=== PATIENT | female | born 1950 | race Caucasian/White ===

== ENCOUNTER 2023-03-04 08:31 | Outpatient (AMB) | payer OTHER, SELFPAY ==
--- NOTE | 2023-03-04 09:02 | MHC.OFFWIV ---
Intake Vital Signs 03/04/23 09:05 Height 5 ft 5 in Weight 127 lb BMI 21.1 BP 122/72 Blood Pressure Location Lt brachial Position Sitting Pulse 76 Pulse Source Pulse Oximeter Temp 101.2 F H Temp Source Temporal Artery Scan Pulse Oximetry (%) 97 Intake Visit Reasons: [employer] COVID + 03/04/23 Intake Note: pt is here for c/o chest congestion, fatigue, fever, at home covid test positive this moring Patient Tobacco Use Status: Never used Tobacco Allergies gluten [GLUTEN] Allergy (Unknown, Verified 03/04/23 09:07) UNKNOWN Do you need a note to return to daycare/school/sports/work: Yes HPI HPI Comments History of Present Illness Details This is a 72-year-old female with a past medical history of asthma and arthritis presenting for evaluation after testing positive for COVID-19 this morning. 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 Patient reports fevers without chills and is not taking any medication for treatment of her symptoms this morning. [facility] Social History Patient Tobacco Use Status: Never used Tobacco Review of Systems Const All systems reviewed & are unremarkable except as noted in HPI and below Reports body aches, Denies chills, Denies excessive sweating, Reports fatigue, Reports fever(s) and Reports malaise Eyes Reports no additional complaints ENT Reports no additional complaints, Denies otalgia and Denies sore throat Card Reports no additional complaints, Denies palpitations and Reports dyspnea Resp Reports cough and Reports dyspnea Endo Denies excessive sweating, Reports fatigue and Denies palpitations Physical Exam Vital Signs: Last Vital Signs Temp 101.2 F H 03/04/23 09:05 Pulse 76 03/04/23 09:05 BP 122/72 03/04/23 09:05 Pulse Ox 97 03/04/23 09:05 BMI result Body Mass Index 21.1 Const Other: Patient is febrile and not hypoxic. General: cooperative, healthy appearing, comfortable, no acute distress, well developed, alert and awake; No ill appearing Nutritional Appearance: average body habitus Orientation/consciousness: patient oriented x3 Limitations: no limitations HEENT Head: Yes normal to inspection Ears: hearing grossly normal bilaterally, TM's normal bilaterally and Abnormal EAC present General nose exam: Normal external nose present Face and sinus: Yes normal facial exam and Yes sinuses nontender Mouth: Normal oral and palatal mucosa present and moist mucous membranes Throat: Yes posterior oropharynx normal Neck Lymphatic: no lymphadenopathy noted Resp Effort & Inspection: normal respiratory effort, able to speak in complete sentences, no audible wheezes, no cough and no respiratory distress Auscultation: clear to auscultation bilaterally Cardio Rate: regular rate Rhythm: regular rhythm Neuro General: patient oriented x3 Psych Appearance: grossly normal Mental Status: mental status grossly normal Insight: Good insight present (Psych) Judgement: Good judgement present (Psych) Assessment & Plan Assessment & Plan (1) COVID: Comment: I have discussed both the risks and benefits of utilizing Paxlovid for management of COVID-19 and patient will be discharged with a prescription of Paxlovid. Code(s): U07.1 - COVID-19 Plan: Follow-up with PCP within 5 days if your symptoms are not improving and use Tylenol or Ibuprofen as needed for fevers and myalgias. Medications: New nirmatrelvir-ritonavir 300 mg (150 mg x 2)-100 mg (Paxlovid) take TWO 150 mg tablets of nirmatrelvir with ONE 100 mg tablet of ritonavir twice daily for 5 days orally per package directions; 30 ea 0RF Coding Level of Care Code Est Pt Level 3 (63265) Diagnoses COVID U07.1 Time Spent (min) 20
[2023-03-04 09:05] VITALS: BP 122/72; PULSE 76; TEMP 38.4; O2SAT 97; BMI 21.1
== END 2023-03-04 09:44 | disposition home or self-care (01) ==
PROVIDERS: PCP Internal Medicine; Visit Provider Physician Assistant
DX: U07.1 COVID-19 (principal)
CPT/HCPCS: 99213

== ENCOUNTER 2023-06-12 08:39 | Outpatient (AMB) | payer OTHER, SELFPAY ==
[2023-06-12 09:02] VITALS: BP 110/72; PULSE 65; TEMP 36.6; O2SAT 97; BMI 21.0
--- NOTE | 2023-06-12 09:02 | AM.OFFWIN_ITS ---
Intake Vital Signs 06/12/23 09:02 Height 5 ft 5 in Weight 126 lb BMI 21.0 BP 110/72 Blood Pressure Location Rt brachial Position Sitting Pulse 65 Pulse Source Pulse Oximeter Temp 97.9 F Temp Source Temporal Artery Scan Pulse Oximetry (%) 97 Oxygen Delivery Method Room Air Intake Visit Reasons: EP Vertigo Intake Note: pt is here today for vertigo started friday Patient Tobacco Use Status: Never used Tobacco Allergies gluten [GLUTEN] Allergy (Unknown, Verified 06/12/23 09:02) UNKNOWN Medication List - Last Reconciled 06/12/23 by Taylor Castaneda NP estradiol 1 patch transdermal QWEEK montelukast 10 mg PO DAILY oxybutynin chloride ER 10 mg PO DAILY valacyclovir 500 mg PO BID Do you need a note to return to daycare/school/sports/work: Yes HPI HPI Comments History of Present Illness Details 72 y/o female patient who presents to [facility] in clinic today with c/o Vertigo since Friday. Pt admits to not hydrating well. Symptoms associated with vomiting and nausea. Denies fevers, chills, or diarrhea. 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 [facility] Social History Patient Tobacco Use Status: Never used Tobacco Review of Systems Const All systems reviewed & are unremarkable except as noted in HPI and below Physical Exam Vital Signs: Last Vital Signs Temp 97.9 F 06/12/23 09:02 Pulse 65 06/12/23 09:02 BP 110/72 06/12/23 09:02 Pulse Ox 97 06/12/23 09:02 Oxygen Delivery Method Room Air 06/12/23 09:02 BMI result Body Mass Index 21.0 Const General: comfortable and no acute distress HEENT Head: Yes normocephalic Ears: external ears normal and TM's normal bilaterally General nose exam: Normal nares present and No nasal discharge present Face and sinus: Yes sinuses nontender Mouth: oropharynx normal and moist mucous membranes Throat: Yes uvula midline Resp Effort & Inspection: normal respiratory effort Auscultation: clear to auscultation bilaterally Cardio Rate: regular rate Rhythm: regular rhythm Assessment & Plan Assessment & Plan (1) Vertigo: Code(s): R42 - Dizziness and giddiness Plan: - Meclizine - Recom f/u with PCP for ENT referral (2) Nausea and vomiting: Code(s): R11.2 - Nausea with vomiting, unspecified Qualifiers: Vomiting type: unspecified Qualified Code(s): R11.2 - Nausea with vomiting, unspecified Plan: - Meclizine - Recom f/u with PCP for ENT referral Orders: Orders SARS-CoV2/FLU/RSV Today R11.2 - Nausea with vomiting, unspecified Medications: New ondansetron 8 mg PO Q8H 30 tabs 0RF R11.2 - Nausea with vomiting, unspecified meclizine 50 mg PO BID 30 tabs 0RF R42 - Dizziness and giddiness Coding Level of Care Code Est Pt Level 3 (68646) Diagnoses Vertigo R42 Nausea and vomiting, unspecified vomiting type R11.2 Vomiting type: unspecified Time Spent (min) 20
== END 2023-06-12 10:01 | disposition home or self-care (01) ==
PROVIDERS: PCP Internal Medicine; Visit Provider Nurse Practitioner Family
DX: R42 Dizziness and giddiness (principal); R11.2 Nausea with vomiting, unspecified
CPT/HCPCS: 99213

== ENCOUNTER 2023-06-12 11:47 | Outpatient (REF) | payer OTHER, SELFPAY ==
[2023-06-12 13:03] LABS: Influenza A PCR NEGATIVE (Negative); Influenza B PCR NEGATIVE (Negative); Resp Syncy Virus RNA Qual PCR NEGATIVE (Negative); SARS COV2 PCR INHOUSE NEGATIVE (Negative)
== END 2023-06-12 11:48 | disposition home or self-care (01) ==
LOC: HO.LNP 11:47
PROVIDERS: Visit Provider Nurse Practitioner Family
DX: Z11.52 Encounter for screening for COVID-19 (principal); Z20.822 Contact with and (suspected) exposure to COVID-19; R11.2 Nausea with vomiting, unspecified
CPT/HCPCS: 0241U

== ENCOUNTER 2023-08-29 07:00 | Outpatient (RCR) | payer OTHER, SELFPAY ==
[2023-08-19 07:06] VITALS: BP 127/41; PULSE 78
== END 2023-10-06 08:28 | disposition home or self-care (01) ==
LOC: HO.PT 07:00
PROVIDERS: PCP Internal Medicine; Visit Provider Internal Medicine
DX: H81.10 Benign paroxysmal vertigo, unspecified ear (principal)
CPT/HCPCS: 95992; 97161; 97535

== ENCOUNTER 2023-09-17 07:32 | Outpatient (AMB) | payer OTHER, SELFPAY ==
[2023-09-17 07:49] VITALS: BP 100/62; PULSE 53; O2SAT 97; BMI 20.6
--- NOTE | 2023-09-17 07:49 | MHC.PC.OV ---
Vital Signs 09/17/23 07:49 Height 5 ft 5 in Weight 124 lb BMI 20.6 BP 100/62 Blood Pressure Location Lt brachial Position Sitting Pulse 53 Pulse Source Pulse Oximeter Pulse Oximetry (%) 97 Oxygen Delivery Method Room Air Intake Visit Reasons: New patient-req physical Intake Note: Pt is here today as a New patient to est care/ PE Allergies gluten [GLUTEN] Allergy (Unknown, Verified 09/17/23 07:50) UNKNOWN Medication List - Last Reconciled 09/17/23 by Harini Lam MD acetaminophen (Tylenol Extra Strength) 1,000 mg PO Q6H PRN albuterol sulfate 90 mcg/actuation 2 puffs inhalation Q6H PRN ascorbic acid (vitamin C) 500 mg PO DAILY calcium carb,[id number] 315-250-200 mg-unit-mg tabs PO cholecalciferol (vitamin D3) 125 mcg PO DAILY diclofenac sodium 1% 2 grams topical QID dorzolamide 2% drps ophthalmic (eye) estradiol 1 patch transdermal QWEEK fexofenadine (Brianna Allergy) 180 mg PO DAILY folic acid 0.4 mg PO DAILY lactobacillus combination no.9 (Adult 50 Plus Probiotic) 4,000 mmu cells PO DAILY latanoprost 0.005% drps ophthalmic (eye) lysine 1,000 mg PO DAILY mecobalamin (vitamin B12) mcg PO montelukast 10 mg PO DAILY multivitamin 1 tab PO DAILY ondansetron 8 mg PO Q8H oxybutynin chloride ER 10 mg PO DAILY timolol maleate 0.5% drps ophthalmic (eye) valacyclovir 500 mg PO BID vit C-E-zinc [id number]-mjhp-yle-[id number] 250 mg-200 unit -12.5 mg-1 mg (ICaps AREDS2) caps PO Tobacco use date assessed: 09/17/23 Fall risk assessment: No Falls in past year Last assessed Fall Risk: 09/17/23 Dental Screening Dental Screen Date: 09/17/23 Did you have a dental visit in the last 12 months?: Yes Did you have a dental problem in the last 6 months where you did not have access to dental care?: No Was dental information given to patient?: Patient has dentist HPI New patient-req physical HPI Details Pt presents for [employer] PE. 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 How often do you have a drink containing alcohol?: 2-4 times a month 2. How many drinks containing alcohol do you have on a typical day when you are drinking?: 1 or 2 3. How often do you have six or more drinks on one occasion?: Never Total Score: 2 KYLEE-7 AMB Questionnaire KYLEE-7 Feeling nervous, anxious, or on edge: 1 = Several days Not being able to stop or control worryin = Several days Worrying too much about different things: 1 = Several days Trouble relaxin = Not at all Being so restless that it is hard to sit still: 1 = Several days Becoming easily annoyed or irritable: 1 = Several days Feeling afraid as if something awful might happen: 0 = Not at all Total KYLEE-7 score (0-4 normal; 5-9 mild; 10-14 moderate; 15-21 severe): 5 Source: Developed by Drs. Felipe Marques, Maria Isabel Mcclelland, Gil Reyes and colleagues, with an educational daniela from [employer]. Review of Systems Const All systems reviewed & are unremarkable except as noted in HPI and below Reports no additional complaints Eyes Reports no additional complaints ENT Reports no additional complaints Card Reports no additional complaints Resp Reports no additional complaints GI Reports no additional complaints Reports no additional complaints Physical exam (Primary Care) Vital Signs: Last Vital Signs Pulse 53 09/17/23 07:49 BP 100/62 09/17/23 07:49 Pulse Ox 97 09/17/23 07:49 Oxygen Delivery Method Room Air 09/17/23 07:49 BMI result Body Mass Index 20.6 Tobacco/Smoking Status: Tobacco use Status Tobacco use date assessed 09/17/23 09/17/23 08:01 Patient Tobacco Use Status Never used Tobacco 09/17/23 08:27 e-Cigarette/Vaping Use Never Used 09/17/23 08:27 Const General: no acute distress HENMT Head: Yes normal to inspection Ears: hearing grossly normal bilaterally General nose exam: Normal external nose present Face and sinus: Yes normal facial exam Mouth: Normal oral and palatal mucosa present Throat: Yes posterior oropharynx normal Eyes General: appearance normal, both eyes and all related structures Neck Neck: Yes no lymphadenopathy and Yes supple Resp Effort & Inspection: normal respiratory effort Auscultation: clear to auscultation bilaterally Cardio Rhythm: regular rhythm Heart sounds: S1 normal heart sound present and S2 normal heart sound present GI Inspection: Yes normal to inspection Palpation (GI): Soft to palpation Percussion: Yes normal to percussion Auscultation: normal bowel sounds Assessment and Plan Assessment & Plan (1) Glaucoma: Comment: Dr. Fawn Talbert Code(s): H40.9 - Unspecified glaucoma (2) Macular degeneration: Code(s): H35.30 - Unspecified macular degeneration (3) Annual physical exam: Code(s): Z00.00 - Encounter for general adult medical examination without abnormal findings Plan: Well-balanced diet regular physical activity discussed with the patient she will return for fasting blood work. Patient will obtain her records including report on DEXA and colonoscopy (4) Hx of colonoscopy: Comment: 2022 07 [facility] GI Code(s): Z98.890 - Other specified postprocedural states (5) Cystocele with prolapse: Comment: s/p 2 surgeries, follow-up with urogynecology Code(s): N81.4 - Uterovaginal prolapse, unspecified (6) Osteopenia: Comment: f/u Dr. Fitch, on estradiol patch Code(s): M85.80 - Other specified disorders of bone density and structure, unspecified site (7) Vitamin D deficiency disease: Code(s): E55.9 - Vitamin D deficiency, unspecified Orders: Orders Vitamin D 25-OH Total Today E55.9 - Vitamin D deficiency, unspecified, Z00.00 - Encounter for general adult medical examination without abnormal findings Comprehensive [place]. Panel Fast Today E55.9 - Vitamin D deficiency, unspecified, Z00.00 - Encounter for general adult medical examination without abnormal findings Complete Blood Count Auto Diff Today E55.9 - Vitamin D deficiency, unspecified, Z00.00 - Encounter for general adult medical examination without abnormal findings Lipid Panel Today E55.9 - Vitamin D deficiency, unspecified, Z00.00 - Encounter for general adult medical examination without abnormal findings TSH reflex Free T4 Today E55.9 - Vitamin D deficiency, unspecified, Z00.00 - Encounter for general adult medical examination without abnormal findings Medications: New montelukast 10 mg PO DAILY 90 tabs 3RF oxybutynin chloride ER 10 mg PO DAILY 90 tabs 3RF albuterol sulfate 90 mcg/actuation 2 puffs inhalation Q6H PRN 6.7 grams 5RF bronchospasm estradiol 1 patch transdermal QWEEK 12 ea 3RF valacyclovir 500 mg PO BID 180 tabs 3RF Coding Level of Care Code New Pt Prev Care >65yr (34400) Diagnoses Glaucoma H40.9 Macular degeneration H35.30 Annual physical exam Z00.00 Hx of colonoscopy Z98.890 Cystocele with prolapse N81.4 Osteopenia M85.80 Vitamin D deficiency disease E55.9
== END 2023-09-17 08:38 | disposition home or self-care (01) ==
PROVIDERS: PCP Internal Medicine; Visit Provider Internal Medicine
DX: H40.9 Unspecified glaucoma (principal); H35.30 Unspecified macular degeneration; Z00.00 Encounter for general adult medical examination without abnormal findings; Z98.890 Other specified postprocedural states; N81.4 Uterovaginal prolapse, unspecified; M85.80 Other specified disorders of bone density and structure, unspecified site; E55.9 Vitamin D deficiency, unspecified
CPT/HCPCS: 99387

== ENCOUNTER 2023-11-06 06:34 | Outpatient (REF) | payer OTHER, SELFPAY ==
[2023-11-06 10:28] LABS: MANUAL DIFF FLAG NO
[2023-11-06 10:36] LABS: Basophils Percent Auto 0.6 % (0-2); Eosinophils Absolute Auto 0.2 X10*3/uL (0.0-0.4); Eosinophils Percent Auto 3.1 % (0-4); Hematocrit 40.4 % (37.0-47.0); Hemoglobin 13.2 g/dl (12.0-16.0); Imm Gran Abs Auto 0.02 X10*3/uL (0.00-0.03); Imm Gran Pct Auto 0.3 % (0.0-0.4); Lymphocytes Absolute Auto 1.3 X10*3/uL (1.2-4.9); Lymphocytes Percent Auto 20.8 % (20-40); Mean Corpuscular HGB Conc 32.7 g/dl (31.0-35.0); Mean Corpuscular Hemoglobin 32.7 pg (27.0-33.0); Mean Platelet Volume 10.2 fL (9.4-12.3); Monocytes Absolute Auto 0.3 X10*3/uL (0.1-1.2); Neutrophils Absolute Auto 4.5 x10*3/uL (2.0-8.3); Neutrophils Percent Auto 70.2 % (45-73); Platelet Count 306 X10*3/uL (160-400); Red Blood Count 4.04 X10*6/uL (4.20-5.50); Red Cell Distribution Width 12.7 % (11.0-16.0); White Blood Count 6.4 X10*3/uL (4.8-10.8)
[2023-11-06 10:48] LABS: Alanine Aminotransferase 17 U/L (0-31); Albumin Level 3.8 g/dL (3.5-5.0); Alkaline Phosphatase 55 U/L (39-117); Anion Gap 8 (12-20); Aspartate Amino Transferase 20 U/L (5-31); Bilirubin Total 0.4 mg/dL (0.0-1.0); Blood Urea Nitrogen 11 mg/dL (9-16); Calcium 8.5 mg/dL (8.4-10.2); Carbon Dioxide 28 mmol/L (22-29); Chloride 110 mmol/L (96-108); Cholesterol 175 mg/dL (<200); Estimated Glomerular Filt Rate > 60; Glucose Fasting 81 mg/dL (60-99); HDL Cholesterol 51 mg/dL (>40); LDL Cholesterol Calculated 112 mg/dL (<100); Potassium 4.3 mmol/L (3.3-5.1); Sodium 142 mmol/L (135-145); Total Protein 6.4 g/dL (6.5-8.0); Triglycerides 64 mg/dL (<150)
[2023-11-06 11:06] LABS: TSH reflex Free T4 1.11 uIU/mL (0.32-4.0); Vitamin D 25-OH Total 86.4 ng/mL (>30)
== END 2023-11-06 06:35 | disposition home or self-care (01) ==
LOC: HO.HMGCLDS 06:34
PROVIDERS: PCP Internal Medicine; Visit Provider Internal Medicine
DX: Z00.00 Encounter for general adult medical examination without abnormal findings (principal); E55.9 Vitamin D deficiency, unspecified
CPT/HCPCS: 36415; 80053; 80061; 82306; 84443; 85025

== ENCOUNTER 2024-01-06 08:39 | Outpatient (REF) | payer OTHER, SELFPAY ==
--- NOTE | ~2024-01-06 | MM_ITS ---
EXAMINATION: MM SCREENING DIGITAL BREAST TOMOSYNTHESIS, BILATERAL CLINICAL INFORMATION: Screening. Asymptomatic. COMPARISON: Mammography: This study is compared with prior exams dating back to 2020. TECHNIQUE: Digital breast tomosynthesis is performed in both the craniocaudal and mediolateral oblique views along with computer-aided detection (CAD). Synthesized 2D images are generated from the tomosynthesis. FINDINGS: There are scattered areas of fibroglandular density (ACR BI-RADS breast composition Category b). There are no significant masses, abnormal calcifications, or other abnormalities. There is a benign mass in the upper inner quadrant of the right breast loss prevention representative of an involuting fibroadenoma. MM/MM tomosynthesis screening BI IMPRESSION: No mammographic evidence of malignancy. ASSESSMENT: BI-RADS BI-RADS 2 - Benign Findings RECOMMENDATION: Routine annual mammography screening. 1 year F/U This examination should not preclude the clinical evaluation of a suspicious palpable abnormality. This patient's information was entered into a reminder system with a target due date for their next mammogram. Electronically signed by: Mikala Rosado MD 02/03/2024 12:02 PM EDT
== END 2024-01-06 08:40 | disposition home or self-care (01) ==
LOC: HO.MAMMO 08:39
PROVIDERS: PCP Internal Medicine; Visit Provider Internal Medicine
DX: Z12.31 Encounter for screening mammogram for malignant neoplasm of breast (principal)
CPT/HCPCS: 77063; 77067

== ENCOUNTER → 2024-01-06 09:00 | Outpatient (BNV) | payer OTHER, SELFPAY | PROVIDERS: PCP Internal Medicine; Visit Provider Radiology Diagnostic Radiology | DX: Z12.31 Encounter for screening mammogram for malignant neoplasm of breast (principal) | CPT/HCPCS: 77063; 77067 ==

== ENCOUNTER 2024-04-02 08:52 | Outpatient (AMB) | payer OTHER, SELFPAY ==
--- NOTE | 2024-04-02 09:00 | A.OFFPC_ITS ---
Vital Signs 04/02/24 09:07 Height 5 ft 5 in Weight 120 lb BMI 20.0 BP 102/66 Blood Pressure Location Lt brachial Position Sitting Pulse 53 Pulse Source Pulse Oximeter Pulse Oximetry (%) 98 Oxygen Delivery Method Room Air Intake Visit Reasons: 6M F/U Intake Note: Pt is here today for 6 months follow up visit. Allergies gluten [GLUTEN] Allergy (Unknown, Verified 04/02/24 09:09) UNKNOWN Tobacco use date assessed: 04/02/24 Fall risk assessment: No Falls in past year Last assessed Fall Risk: 04/02/24 Dental Screening Dental Screen Date: 09/17/23 HPI 5M F/U HPI Details Pt presents for f/u. 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 Patient is established with rn ortho for osteopenia and has been using estradiol patch. 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 1. Little interest or pleasure in doing things: not at all 2. Feeling down, depressed, or hopeless: not at all 3. Trouble falling or staying asleep, or sleeping too much: not at all 4. Feeling tired or having little energy: not at all 5. Poor appetite or overeating: not at all 6. Feeling bad about yourself - or that you are a failure or have let yourself or your family down: not at all 7. Trouble concentrating on things, such as reading the newspaper or watching television: not at all 8. Moving or speaking so slowly that other people could have noticed. Or the opposite - being so fidgety or restless that you have been moving around a lot more than usual: not at all 9. Thoughts that you would be better off or of hurting yourself in some way: not at all Total score: 0 Depression Screening Interpretation: Negative Depression Screening Done: Yes 46140 - PHQ-9 Billing: Yes Source: Developed by Drs. Felipe Marques, Maria Isabel Mcclelland, Gil Reyes and colleagues, with an educational daniela from [employer]. Thrive Questionnaire Date Thrive assessed: 03/27/24 I am a: Patient What is your living situation today?: I have a steady place to live Within the past 12 months, did the food you bought not last and you didn't have the money to get more?: Often true Within the past 12 months, did you worry whether your food would run out before you got money to buy more?: Never true Do you have trouble paying for medicines?: No Do you have trouble getting transportation to medical appointments?: No Do you have trouble paying your heating and electricity bill?: No Do you have trouble taking care of your child, family member or friend?: No Do you have trouble with day-to-day activities such as bathing, preparing meals, shopping, managing finances, etc.?: No Are you currently unemployed and looking for a job?: No Are you interested in more education?: No Please select the resources that you would like help with: None Currently or been in a relationship where the following occur: No concerns reported THRIVE Score: 1 AUDIT C Alcohol Use Questionnaire (AUDIT-C) 1. How often do you have a drink containing alcohol?: 2-3 times a week 2. How many drinks containing alcohol do you have on a typical day when you are drinking?: 1 or 2 3. How often do you have six or more drinks on one occasion?: Never Total Score: 3 KYLEE-7 AMB Questionnaire KYLEE-7 Feeling nervous, anxious, or on edge: 0 = Not at all Not being able to stop or control worryin = Not at all Worrying too much about different things: 0 = Not at all Trouble relaxin = Not at all Being so restless that it is hard to sit still: 0 = Not at all Becoming easily annoyed or irritable: 0 = Not at all Feeling afraid as if something awful might happen: 0 = Not at all Total KYLEE-7 score (0-4 normal; 5-9 mild; 10-14 moderate; 15-21 severe): 0 Source: Developed by Drs. Felipe Marques, Maria Isabel Mcclelland, Gil Reyes and colleagues, with an educational daniela from [employer]. Review of Systems Const All systems reviewed & are unremarkable except as noted in HPI and below Eyes Reports no additional complaints ENT Reports no additional complaints Card Reports no additional complaints Resp Reports no additional complaints GI Reports no additional complaints Reports no additional complaints Physical exam (Primary Care) Vital Signs: Last Vital Signs Pulse 53 04/02/24 09:07 BP 102/66 04/02/24 09:07 Pulse Ox 98 04/02/24 09:07 Oxygen Delivery Method Room Air 04/02/24 09:07 BMI result Body Mass Index 20.0 Tobacco/Smoking Status: Tobacco use Status Tobacco use date assessed 04/02/24 04/02/24 09:11 Patient Tobacco Use Status Never used Tobacco 04/02/24 09:01 e-Cigarette/Vaping Use Never Used 04/02/24 09:01 PHQ-9: PHQ-9 Score PHQ-9: Total score 0 04/02/24 09:01 Depression Screening Interpretation: Negative Thrive Assessment: Date of Thrive Assessment Date Thrive assessed 03/27/24 04/02/24 09:01 Currently or been in a relationship where the following occur: No concerns reported Const General: no acute distress HENMT Head: Yes normal to inspection Neck Neck: Yes no lymphadenopathy Resp Effort & Inspection: normal respiratory effort Auscultation: clear to auscultation bilaterally Cardio Rhythm: regular rhythm Heart sounds: S1 normal heart sound present and S2 normal heart sound present GI Inspection: Yes normal to inspection Palpation (GI): Soft to palpation Percussion: Yes normal to percussion Auscultation: normal bowel sounds Coding Level of Care Code Est Pt Level 4 (06368) Diagnoses Hx of colonoscopy Z98.890 Hx of screening mammography Z92.89 Glaucoma H40.9 Osteopenia M85.80 Additional Codes PHQ-9 - 75616 - PHQ-9 Billing: Yes ([id number]) Assessment & Plan Assessment & Plan (1) Hx of colonoscopy: Comment: 2022 07 [facility] GI Code(s): Z98.890 - Other specified postprocedural states Category: Surgical Plan: f/u GI (2) Hx of screening mammography: Comment: Naomy 12/2022 Code(s): Z92.89 - Personal history of other medical treatment Category: Medical Plan: up to date (3) Glaucoma: Comment: Dr. Davis Code(s): H40.9 - Unspecified glaucoma Category: Medical Plan: f/u ophthalmology (4) Osteopenia: Comment: f/u Dr. Fitch, on estradiol patch Code(s): M85.80 - Other specified disorders of bone density and structure, unspecified site Category: Medical Plan: Continue vitamin-D supplement estradiol patch regular physical activity and weight-bearing exercises patient will have repeat DEXA next year and will follow-up with rheumatology
[2024-04-02 09:07] VITALS: BP 102/66; PULSE 53; O2SAT 98
== END 2024-04-02 09:44 | disposition home or self-care (01) ==
PROVIDERS: PCP Internal Medicine; Visit Provider Internal Medicine
DX: Z98.890 Other specified postprocedural states (principal); Z92.89 Personal history of other medical treatment; H40.9 Unspecified glaucoma; M85.80 Other specified disorders of bone density and structure, unspecified site

== ENCOUNTER → 2024-04-02 08:52 | Outpatient (BNVA) | payer OTHER, SELFPAY | PROVIDERS: PCP Internal Medicine; Visit Provider Internal Medicine | DX: H40.9 Unspecified glaucoma (principal); M85.80 Other specified disorders of bone density and structure, unspecified site | CPT/HCPCS: 96127 ==

== ENCOUNTER 2024-08-27 10:52 | Outpatient (AMB) | payer MEDICARE, SELFPAY ==
--- NOTE | 2024-08-27 10:59 | A.OFFPC_ITS ---
Vital Signs 08/27/24 11:01 Height 5 ft 5 in Weight 120 lb BMI 20.0 BP 86/48 L Blood Pressure Location Lt brachial Position Sitting Respiration 16 Pulse 74 Pulse Source Pulse Oximeter Temp 98.5 F Temp Source Oral Pulse Oximetry (%) 96 Oxygen Delivery Method Room Air Intake Visit Reasons: Sleep apnea/diarreha Intake Note: Pt is here today c/o LLQ pain and diarrhea and vomiting Allergies gluten [GLUTEN] Allergy (Unknown, Verified 04/02/24 09:09) UNKNOWN Tobacco use date assessed: 08/27/24 Fall risk assessment: 2 + Falls in past year Last assessed Fall Risk: 08/27/24 Dental Screening Dental Screen Date: 08/27/24 Did you have a dental visit in the last 12 months?: Yes Did you have a dental problem in the last 6 months where you did not have access to dental care?: Yes Was dental information given to patient?: Patient has dentist HPI Sleep apnea/diarreha HPI Details Pt presents complaining of LLQ abd pain usually starting at night with some bloating following by diarrhea, more frequent bowel movements and occasionally watery stool up to 4 times per episode. The symptoms started 6 months ago and initially were happening once or twice a month. They have been becoming more frequent 3 x week with left lower quadrant abdominal pain intensifying. Symptoms are not related to food intake. Patient denies fever c hills weight loss vomiting. She reports a feeling more nauseous and has been having decreased appetite because she is afraid to trigger abdominal pain. Patient denies dysphagia odynophagia hematochezia melena. Patient had a colonoscopy 2 years ago which revealed 3 polyps and she is due for repeat 1 next year. 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 1. Little interest or pleasure in doing things: not at all 2. Feeling down, depressed, or hopeless: not at all 3. Trouble falling or staying asleep, or sleeping too much: not at all 4. Feeling tired or having little energy: not at all 5. Poor appetite or overeating: not at all 6. Feeling bad about yourself - or that you are a failure or have let yourself or your family down: not at all 7. Trouble concentrating on things, such as reading the newspaper or watching television: not at all 8. Moving or speaking so slowly that other people could have noticed. Or the opposite - being so fidgety or restless that you have been moving around a lot more than usual: not at all 9. Thoughts that you would be better off or of hurting yourself in some way: not at all Total score: 0 Source: Developed by Drs. Felipe Marques, Maria Isabel Mcclelland, Gil Reyes and colleagues, with an educational daniela from [employer]. Thrive Questionnaire Date Thrive assessed: 03/27/24 I am a: Patient What is your living situation today?: I have a steady place to live Within the past 12 months, did the food you bought not last and you didn't have the money to get more?: Never true Within the past 12 months, did you worry whether your food would run out before you got money to buy more?: Never true Do you have trouble paying for medicines?: No Do you have trouble getting transportation to medical appointments?: No Do you have trouble paying your heating and electricity bill?: No Do you have trouble taking care of your child, family member or friend?: No Do you have trouble with day-to-day activities such as bathing, preparing meals, shopping, managing finances, etc.?: No Are you currently unemployed and looking for a job?: No Are you interested in more education?: No Please select the resources that you would like help with: None Currently or been in a relationship where the following occur: No concerns reported THRIVE Score: 0 AUDIT C Alcohol Use Questionnaire (AUDIT-C) 1. How often do you have a drink containing alcohol?: Monthly or less 2. How many drinks containing alcohol do you have on a typical day when you are drinking?: 1 or 2 3. How often do you have six or more drinks on one occasion?: Never Total Score: 1 KYLEE-7 AMB Questionnaire KYLEE-7 Feeling nervous, anxious, or on edge: 0 = Not at all Not being able to stop or control worryin = Not at all Worrying too much about different things: 0 = Not at all Trouble relaxin = Not at all Being so restless that it is hard to sit still: 0 = Not at all Becoming easily annoyed or irritable: 0 = Not at all Feeling afraid as if something awful might happen: 0 = Not at all Total KYLEE-7 score (0-4 normal; 5-9 mild; 10-14 moderate; 15-21 severe): 0 Source: Developed by Drs. Felipe Marques, Maria Isabel Mcclelland, Gil Reyes and colleagues, with an educational daniela from [employer]. Review of Systems Const All systems reviewed & are unremarkable except as noted in HPI and below Eyes Reports no additional complaints ENT Reports no additional complaints Card Reports no additional complaints Resp Reports no additional complaints GI Reports no additional complaints Reports no additional complaints Physical exam (Primary Care) Vital Signs: Last Vital Signs Temp 98.5 F 08/27/24 11:01 Pulse 74 08/27/24 11:01 Resp 16 08/27/24 11:01 BP 86/48 L 08/27/24 11:01 Pulse Ox 96 08/27/24 11:01 Oxygen Delivery Method Room Air 08/27/24 11:01 BMI result Body Mass Index 20.0 Tobacco/Smoking Status: Tobacco use Status Tobacco use date assessed 08/27/24 08/27/24 11:05 Patient Tobacco Use Status Never used Tobacco 08/27/24 11:05 e-Cigarette/Vaping Use Never Used 08/27/24 11:05 PHQ-9: PHQ-9 Score PHQ-9: Total score 0 08/27/24 11:05 Thrive Assessment: Date of Thrive Assessment Date Thrive assessed 03/27/24 08/27/24 11:05 Currently or been in a relationship where the following occur: No concerns reported Const General: no acute distress [facility] Mouth: Normal oral and palatal mucosa present Resp Effort & Inspection: normal respiratory effort Auscultation: clear to auscultation bilaterally Cardio Rhythm: regular rhythm Heart sounds: S1 normal heart sound present and S2 normal heart sound present GI Inspection: Yes normal to inspection Palpation (GI): Soft to palpation and Tenderness to palpation present (GI) in the LLQ; with no rebound tenderness Percussion: Yes normal to percussion Auscultation: normal bowel sounds Coding Level of Care Code Est Pt Level 3 (68988) Diagnoses Abdominal pain R10.9 Diverticulitis K57.92 Assessment & Plan Assessment & Plan (1) Abdominal pain: Comment: LLQ Code(s): R10.9 - Unspecified abdominal pain Category: Medical Plan: Obtain CT of the abdomen and pelvis to rule out diverticulitis. Check comprehensive panel with CBC. Patient was advised to start taking omeprazole 20 mg daily and follow-up in 1 month (2) Diverticulitis: Code(s): K57.92 - Diverticulitis of intestine, part unspecified, without perforation or abscess without bleeding Category: Medical Plan: Check CT of abdomen and pelvis Orders: Orders CT abdomen pelvis w IV con Today K57.92 - Diverticulitis of intestine, part unspecified, without perforation or abscess without bleeding, R10.9 - Unspecified abdominal pain Complete Blood Count Auto Diff Today K57.92 - Diverticulitis of intestine, part unspecified, without perforation or abscess without bleeding, R10.9 - Unspecified abdominal pain Comprehensive Met. Panel Today K57.92 - Diverticulitis of intestine, part unspecified, without perforation or abscess without bleeding, R10.9 - Unspecified abdominal pain UA w Microscopic Today K57.92 - Diverticulitis of intestine, part unspecified, without perforation or abscess without bleeding, R10.9 - Unspecified abdominal pain
[2024-08-27 11:01] VITALS: BP 86/48; PULSE 74; RESP 16; TEMP 36.9; O2SAT 96
--- OUTSIDE RECORDS SUMMARY | 2024-08-27 11:50 | XMS_ITS ---
Author Organization [facility] Address [address] [place] [address] Care Team Providers Care Aquatic Centre Manager Name Role Phone Harini Lam MD Primary Care Provider Unavaila Vu Moss Unavailable [phone] Allergies Allergen (clinical drug ingredient) Drug/Non Drug [...] Active Encounters Encounter Location Date Provider Diagnosis [address] [address] 06/08/2024 Vu Wang Plan Of Treatment Next Appt Details Provider Name:Vu Wang , 10/05/2024 01:45:00 PM, [address] [place] [address], [address], Progress Notes * Kendra BHATT SDOB:[birth year] (73 yo F)Acc No.[id number]:06/08/2024 Progress Note Patient:Kendra JARAMILLO Provider:?Vu Wang DPM :1950???Age:73 Y???Sex:Female D ate:06/08/2024 Address:[address] [place], [place] [id number] Pcp:Harini Lam MD Subjective: * Chief Complaints: * ??? * Medical History:?Osteoarthri tis, Asthma, Back,Hip,and Knee pain, Macular degeneration, Measles, Mumps, Chicken pox, Celiac disease, Inflammatory bowel disease, Overactive bladder (OAB). * Medications:?Taking Dorzolam prince HCl 2 % Solution 1 drop into [...] as directed B/L pes planus, metatarsalgia * Allergies:?Prednisone: chest Pain - Allergy, Mold: Allergy. Objective: * Vitals:? Assessment: Plan: * Treatment: * Images: * The named appointment provid er may or may not be the originator of this progress note, and it is not deemed complete until electronically signed by the appointment provider. Sign off status: Pending * Provider:?Vu Wang DPM Date:?2024 Generated for Diana miranda/Ras/eTransmitting on:?08/27/2024 11:49 AM EDT
--- OUTSIDE RECORDS SUMMARY | 2024-08-27 11:50 | XMS_ITS | Patient Health Record ---
Author Organization [facility] Address [address] [place] [address] Care Team Providers Care School Secretary Name Role Phone Harini Lam MD Primary Care Provider Vu Chen Unavailable [phone] Allergies Allergen (clinical drug ingredient) Drug/Non Drug Allergy documented on EMR Reaction Allergy Type Onset Date Status Mold Unknown Allergy Active prednisone Prednisone chest Pain Drug Allergy Acti ve Reason For Referral No Information Medications Medication SIG (Take, Route, Frequency, Duration) Notes Start Date End Date Status Latanoprost Active Timolol Hemihydrate Active Custom Orthotics as directed B/L pes planus, metatarsalgia 09/08/2018 Active Dorzolamide HCl 2 % 1 drop into affected eye Ophthalmic Three times a day Active tylenol 1000mg TID Activ e valACYclovir HCl 500 MG Orally Active PreserVision AREDS A ctive Probiotic Active Multivitamin Active oxyBUTYnin 10mg Acti ve Estradiol 0.025 MG/24HR as directed Orally Active Montelukast Sodium 10 MG Orally Once a day Active Immunizations Vaccine Route Administration Date Status Comme nts COVID-19 Moderna Vaccine Unknown 03/28/2021 Administered 1st 06/12/20 2nd 07/10/20 Social History Tobacco Use: Social History Observation Description Date Details (start date - stop date) Never Smoker NA - NA Tobacco use other than smoking: Question Answer Notes Are you an other tobacco user? No Tobacco Control (Standard) Question Answer Notes Tobacco use: Nonsmoker Additional Findings: Tobacco non-user Current no nsmoker AUDIT-C (Standard) Question Answer Notes Did you have a drink containing alcohol in the p ast year? No Points 0 Interpretation Negative Problems Problem Type SNOMED Code ICD Code Onset Dates Problem Status W/U Status Risk Notes Problem Atherosclerosis of [place] arteries of the extremities ([id number]) Atherosclerosis of [place] artery of both lower extremities, with unspecified presence of clinical manifestation (I70.203) Active confirmed Q7(A), Q8(2B), Q9(1B,2 C) Vital Signs Blood pressure diastolic 80 mm Hg 06/11/2024 Height 5ft 6in in 06/11/2024 Blood pressure systolic 120 mm Hg 06/11/2024 Weight 123 lbs 06/11/2024 BMI 19.85 kg/m2 06/11/2024 Procedures Procedure Date Ordered Date Performed Result Body Sit e 25440-TSNQPQY NAIL, 6 OR MORE 09/02/2023 N/A 38880-Auan Destruction, 1-14 09/02/2023 N/A 42589-Iqtbrcpc Plate 09/02/2023 N/A 78995-NESWPNE NAIL, 6 OR MORE 12/09/2023 N/A 81964-Wjcy Destruction, 1-14 12/09/2023 N/A 33304-Oiddtuyb Plate 12/09/2023 N/A 68439-RLZBJXN NAIL, 6 OR MORE 03/02/2024 N/A 80572-Hzsf Destruction, 1-14 03/02/2024 N/A 55511-Zmysoocb Plate 03/02/2024 N/A 28588-GOAEEUL NAIL, 6 OR MORE 06/11/2024 N/A 98636-NRXU SKIN LESIONS, OVER 4 06/11/2024 N/A Encounters Encounter Location Date Provider Diagnosis [facility] [address] [address] 09/02/2023 Vu Kathleen Tinea unguium B35.1 ; Pain in right toe(s) M79.674 ; Pain in left toe(s) M79.675 ; Plantar wart B07.0 ; Pain in left foot M79.672 and Ingrown nail L60.[address] [facility] [address] 12/09/2023 Vu Kathleen Tinea unguium B35.1 ; Pain in right toe(s) M79.674 ; Pain in left toe(s) M79.675 ; Plantar wart B07.0 ; Pain in left foot M79.672 and Ingrown nail L60.[address] [address] 03/02/2024 Vu Wang Tinea unguium B35.1 ; Pain in right toe(s) M79.674 ; Pain in left toe(s) M79.675 ; Plantar wart B07.0 ; Pain in left foot M79.672 and Ingrown nail L60.[address] [address] 06/11/2024 Vu Wang Atherosclerosis of [place] artery of both lower extremities, with unspecified presence of clinical manifestation I70.203 ; Tinea unguium B35.1 ; Pain in right toe(s) M79.674 and Pain in left toe(s) M79.[address] [address] 12/16/2023 Vu Wang [address] [address] 06/08/2024 Vu Wang Assessments Encounter Date Diagnosis (ICD Code) Assessment Notes Treatment Notes Treatment Clinical Notes Section Notes 09/02/2023 Tinea unguium (ICD-10 - B35.1) 09/02/2023 Pain in right toe(s) (ICD-10 - M79.674) 12/09/2023 Tinea unguium (ICD-10 - B35.1) 03/02/2024 Tinea unguium (ICD-10 - B35.1) 06/11/2024 Atherosclerosis of [place] artery of both lower extremities, with unspecified presence of clinical manifestation (ICD-10 - I70.203) Q7(A), Q8(2B), Q9(1B,2C) 03/02/2024 Pain in right toe(s) (ICD-10 - M79.674) 06/11/2024 Tinea unguium (ICD-10 - B35.1) 12/09/2023 Pain in right toe(s) (ICD-10 - M79.674) 09/02/2023 Pain in left toe(s) (ICD-10 - M79.675) 12/09/2023 Pain in left toe(s) (ICD-10 - M79.675) 09/02/2023 Plantar wart (ICD-10 - B07.0) 03/02/2024 Pain in left toe(s) (ICD-10 - M79.675) 06/11/2024 Pain in right toe(s) (ICD-10 - M79.674) 06/11/2024 Pain in left toe(s) (ICD-10 - M79.675) 03/02/2024 Plantar wart (ICD-10 - B07.0) 12/09/2023 Plantar wart (ICD-10 - B07.0) 09/02/2023 Pain in left foot (ICD-10 - M79.672) 09/02/2023 Ingrown nail (ICD-10 - L60.0) 12/09/2023 Pain in left foot (ICD-10 - M79.672) 03/02/2024 Pain in left foot (ICD-10 - M79.672) 03/02/2024 Ingrown nail (ICD-10 - L60.0) 12/09/2023 Ingrown nail (ICD-10 - L60.0) Plan Of Treatment Pending Test Test Name Order Date X ray : Foot, left 3V 09/08/2018 X ray : Foot, right 3V 09/08/2018 00186-VSIVBJD NAIL, 6 OR MORE 06/25/2022 33826-HUAMLQR NAIL, 6 OR MORE 09/03/2022 21455-MGCDOUF NAIL, 6 OR MORE 11/15/2022 19082-FRTFXXL NAIL, 6 OR MORE 02/18/2023 31743-VTKTUNI NAIL, 6 OR MORE 05/27/2023 70586-WIJNXRM NAIL, 6 OR MORE 09/02/2023 72647-DCGUGTM NAIL, 6 OR MORE 12/09/2023 68588-XGCMJER NAIL, 6 OR MORE 03/02/2024 60899-EHZKXRN NAIL, 6 OR MORE 06/11/2024 70206-Gkjj Destruction, 06-0103/02/2024 31689-Lroe Destruction, 06-0112/09/2023 71842-Booq Destruction, 06-0109/02/2023 15119-Hndi Destruction, 06-0105/27/2023 15692-Miya Destruction, 06-0102/18/2023 37609-Ckpx Destruction, 06-0111/15/2022 08549-Ercn Destruction, 06-0109/03/2022 99085-Ydad Destruction, 06-0103/29/2022 86216-Hwrn Destruction, 06-0106/25/2022 56410-Koil Destruction, 06-0108/21/2021 77616-Tncy Destruction, 06-0111/27/2021 03490-Myybucec Plate 11/27/2021 86205-Zpnhvsqq Plate 06/25/2022 88622-Knasadkd Plate 09/03/2022 41392-Dupyqork Plate 02/18/2023 63202-Gzriyvnd Plate 05/27/2023 16229-Xnfybdnd Plate 09/02/2023 13022-Dlpbndyz Plate 12/09/2023 00922-Nqrwjmmv Plate 03/02/2024 20058-FEZQ SKIN LESIONS, OVER 4 06/11/19 Next Appt Details Provider Name:Vu Pina Kathleen , 10/05/2024 01:45:00 PM, [address] [facility], [place], [address], Insurance Providers Payer Name Payer Address Payer Phone Subscriber Number Group Number Insured Name Patient Relationship to Insured Coverage Start Date Coverage End Date Medicare [employer] [address] [facility] [address] [id number] Kendra Santiago Self - patient is the insured 5 [facility] [address] [place] [address] [id number] Kendra Santiago Self - patient is the insured Medical (General) History Medical History History ICD Code osteoarthritis asthma Back,Hip,and Knee pain Macular degeneration Measles Mumps Chicken pox Celiac disease Inflammatory bowel disease Overactive bladder (OAB) Surgical History Surgery Date(Month/Year) hip replacement 09/06/2020 Hospitalization History Reason Date(Month/Year)
--- OUTSIDE RECORDS SUMMARY | 2024-08-27 11:50 | XMS_ITS ---
Author Organization [facility] Address [address] [place] [address] Care Team Providers Care Senior Software Analyst Name Role Phone Harini Lam MD Primary Care Provider Vu Chen Unavailable [phone] Allergies Allergen (clinical drug ingredient) Drug/Non Drug Allergy documented on EMR Reaction Allergy Type Onset Date Status Mold Unknown Allergy Active prednisone Prednisone chest Pain Drug Allergy Acti ve REASON FOR VISIT At Risk Footcare, Painful Nail(s) aggravated by shoes and causing difficulty standing/walking. Medications Medication SIG (Take, Route, Frequency, Duration) Notes Start Date End Date Status Custom Orthotics as directed B/L pes planus, metatarsalgia 09/08/2018 Active tylenol 1000mg TID Activ e valACYclovir HCl 500 MG Orally Active PreserVision AREDS A ctive Probiotic Active Timolol Hemihydrate Active Multivitamin Active oxyBUTYnin 10mg Acti ve Estradiol 0.025 MG/24HR as directed Orally Active Montelukast Sodium 10 MG Orally Once a day Active Latanoprost Active Dorzolamide HCl 2 % 1 drop into affected eye Ophthalmic Three times a day Active Social History Tobacco Use: Social History Observation [...] W/U Status Risk Notes Problem Atherosclerosis of [place] arteries of the extremities (346682104070008) Atherosclerosis of [place] artery of both lower extremities, with unspecified presence of clinical manifestation (I70.203) Active confirmed Q7(A), Q8(2B), Q9(1B,2 C) Vital Signs Height 5ft 6in in 06/11/2024 Weight 123 lbs 06/11/2024 BMI 19.85 kg/m2 06/11/2024 Blood pressure systolic 120 mm Hg 06/11/19 25 Blood pressure diastolic 80 mm Hg 025 Procedures Procedure Date Ordered Date Performed Result Body Sit e 89706-CUYKUBY NAIL, 6 OR MORE 06/11/2024 N/A 77012-NYYR SKIN LESIONS, OVER 4 06/11/2024 N/A Encounters Encounter Location Date Provider Diagnosis [facility] [address] [address] 06/11/2024 Vu Wang Atherosclerosis of [place] artery of both lower extremities, with unspecified presence of clinical manifestation I70.203 ; Tinea unguium B35.1 ; Pain in right toe(s) M79.674 and Pain in left toe(s) M79.675 Assessments Encounter Date Diagnosis (ICD Code) Assessment Notes Treatment Notes Treatment Clinical Notes Section Notes 06/11/2024 Atherosclerosis of [place] artery of both lower extremities, with unspecified presence of clinical manifestation (ICD-10 - I70.203) Q7(A), Q8(2B), Q9(1B,2C) 06/11/2024 Tinea unguium (ICD-10 - B35.1) 06/11/2024 Pain in right toe(s) (ICD-10 - M79.674) 06/11/2024 Pain in left toe(s) (ICD-10 - M79.675) Plan Of Treatment Pending Test Test Name Order Date 68483-AKBCQVQ NAIL, 6 OR MORE 06/11/2024 70804-FTJT SKIN LESIONS, OVER 4 06/11/19 25 Next Appt Details Follow Up: prn, Reason: Provider Name:Vu Wang , 10/05/2024 01:45:00 PM, [address] [place] [address], [id number], Procedure Notes * Category Sub-Category Detail Notes Debride Nail 6-10 Nail debridement Due to the cl inical pathology outlined in the exam findings, performance of this nail treatment is medically necessary as its management by an unskilled/untrained nonprofessional would put this patients foot and overall health at risk. Therefore, debridement to affected nail(s), as described in exam ( TA, T1, T2, T3, T4, T5, T6, T7, T8, T9 ), was performed exclusively by the physician of record to reduce/remove overall nail length, girth, thickness, subungual debris, and necrotic tissue, by manual and/or electrical means through the use of a nail nipper and/or dremel-type laboratory apparatus glass grinder, to a more viable healthy nail plate or bed tissue 6-10 nails in total. Silver nitrate was used for any petechial bleeding as necessary. Definitive antifungal treatment options, both pharmaceutical and surgical, have been reviewed and discussed with the patient. The patient solely prefers the use of intermittent/as needed professional debridement services for their nail condition and understands the need for additional periodic treatments to maintain effectiveness in symptomatic relief - 96469 Keratoma Treatment Parring or Cutting o f Benign Hyperkeratotic Lesion(s) (-57) More than 4 Lesions - Due to the at risk nature of the patients medical condition as documented in the exam findings, performance of this keratoderma treatment is medically necessary as its management by an unskilled/untrained nonprofessional would put this patients foot and overall health at risk. Therefore, the benign hyperkeratotic lesions, ( 6 ) in total, locations as stated and described in the exam ( Medial, IPJ, TA, Medial, IPJ, T5, SUB MTH (s), 1, B/L, SUB MTH (s), 2, Left, SUB MTH (s), 3, Left ), were pared, and/or cut utilizing a sterile 15 blade, tissue nippers, and/or power dremel instrumentation by the physician of record - 76294, Q8 Progress Notes * Kendra BHATT SDOB:[birth year] (73 yo F)Acc No.[id number]:06/11/2024 Progress Note Patient:?Kendra BHATT S Provider:?Vu Wang DPM :1950???Age:73 Y???Sex:Female D ate:06/11/2024 Address:[address] [place] [address], [place] santos [id number] Pcp:Harini Lam MD Subjective: * Chief Complaints: * ???At Risk FootcarePainful N ail(s) aggravated by shoes and causing difficulty standing/walking. * HPI: ???At Risk footcare:?Pt States Last PCP Visit:?Date?03/30/2024 * ROS:?General/Constitutional:?Nausea?denies.?Vomiting?denies.?Hunger Thirst?denies.?Loss appetite?denies.?Chills?denies.?Fatigue?denies.?Fever?denies.?Night Sweats?denies.?Unexplained weight loss?denies.?Unexplained weight gain?denies.?HEENTM:?Dentures?denies.?Dizziness?denies.?Glasses/contacts?admits.?Retinopathy?de nies.?Blurred/double vision?denies.?TMJ?denies.?Discharge/drainage?denies.?Implants?denies.?Sore throat?denies.?Dental implants?denies.?Hard of hearing ?denies.?Difficulty chewing/swallowing/speaking?denies.?Nose bleeds?denies.?Sore mouth?denies.?Respiratory:?On Oxygen?denies.?Pneumonia/pleurisy?admits.?Bronchitis?denies.?Emphysema?denies.?C oughing?denies.?Cough blood?denies.?Shortness of breath?denies.?Wheezing?denies.?Cardiovascular:?Pacemaker?denies.?MVP?denies.?WPW?denies.?CHF?denies.?Heart attack?denies.?Septal defect?denies.?Rapid beat?denies.?Chest pain ?denies.?Atrial Fib.?denies.?Murmur/Palpitations?denies.?Gastrointestinal:?Hemorrhoids?denies.?Stomach/Abdominal pain?denies.?Dark blood stool?denies.?Irritable bowel ?admits.?Constipation?denies.?Diarrhea?denies.?Hematology:?Swelling?denies.?Clots?denies.?Varicose Veins?denies.?Bruising?denies.?Bleeding problem?denies.?Genitourinary:?Blood urine?denies.?Frequent/Painfu/urination/bladder control?denies.?Kidney stones?denies.?Infection (UTI)?denies.?Nephropathy?denies.?sex trans dis (STD)?denies.?Prostate?denies.?Musculoskeletal:?Hammertoes?denies.?Bunions?denies.?Back Pain?admits.?Muscle Cramps/ Resting?denies.?Muscle cramps / walking?denies.?Generalized aches and pains?admits.?Weakness?denies.?Integ.:?Stoner?denies.?Scars?denies.?Corns/calluses?admits.?Ingrown nails?admits.?Painful nails?admits.?Open Sores?denies.?Rashes?denies.?Neurologic:?Difficulty sleeping?denies.?Brain disorder?denies.?Numbness?denies.?Balance trouble?denies.?Confusion?denies.?Fainting/blackouts?denies.?Tingling?denies.?Tr emors?denies.? * Medical History:? * Surgical History:?hip replac ement 09/06/2020 * Hospitalization/Major Diagno stic Procedure:?Denies Past Hospitalization * Family History:?Mother: alisheri e, poor circulation, foot problems, diagnosed with Diabetic - NIDDM, Family history of arthritis.?Father: , high blood pressure, poor circulation, diagnosed with Diabetic - NIDDM.?Paternal Grand Mother: heart attack.?Paternal Grand Father: heart attack.?Maternal Grand Mother: heart attack.?Maternal Grand Father: heart attack.?Siblings: alive, kidney/liver disease, heart attack, diagnosed with Unspecified essential hypertension.?1 daughter(s) - healthy. .? * Social History:?Tobacco Use:?Tobacco use other than smoking?Are you an other tobacco user??No ?Tobacco Control (Standard)?Tobacco use:?Nonsmoker ?Additional Findings: Tobacco non-user?Current nonsmoker ???Drugs/Alcohol:?Drugs?Have you used drugs other than those for medical reasons in the past 12 months??No ???Miscellaneous:?Caffeine: yes, frequency:, 2-3 cups per day. ?Children: yes, 1. ?Exercise: yes, yardwork, walking. ?Marital status: . 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 ???Drug/Alcohol:?AUDIT-C (Standard)?Did you have a drink containing alcohol in the past year??No ?Points?0 ?Interpretation?Negative * Medications:?TakingDorzolami de HCl 2 % Solution 1 drop into affected eye Ophthalmic Three times a day Latanoprost Timolol Hemihydrate Estradiol 0.025 MG/24HR Patch Twice Weekly as directed Orally Montelukast Sodium 10 MG Tablet Orally Once a day Multivitamin oxyBUTYnin 10mg PreserVision AREDS Probiotic tylenol 1000mg TID valACYclovir HCl 500 MG Tablet Orally Custom Orthotics as directed B/L pes planus, metatarsalgia Medication List reviewed and reconciled with the patientTaking Dorzolamide HCl 2 % Solution 1 drop into affected eye Ophthalmic Three times a day Taking Latanoprost Taking Timolol Hemihydrate Taking Estradiol 0.025 MG/24HR Patch Twice Weekly as directed Orally Taking Montelukast Sodium 10 MG Tablet Orally Once a day Taking Multivitamin Taking oxyBUTYnin 10mg Taking PreserVision AREDS Taking Probiotic Taking tylenol 1000mg TID Taking valACYclovir HCl 500 MG Tablet Orally Taking Custom Orthotics as directed B/L pes planus, metatarsalgia Medication List reviewed and reconciled with the patient * Allergies:?Prednisone: chest Pain - AllergyMold: Allergyyes[Allergies Verified] Objective: * Vitals:?Ht:5ft 6in, Wt:123, BMI:19.85, Shoe size:8-8.5, BP:120/80mm Hg, Ht-cm: 167.64 cm, Wt-k.79 kg. * Examination: ???Vascular: ?DP PULSES (B):? 0/4, B/L.?PT PULSES (B):? 0/4, B/L.?CAPILLARY FILL TIME:? delayed, all digits, B/L.?TROPHIC CONDITION-TEXTURE/ELASTICITY/TURGOR/HAIR GROWTH (B):? decreased, fragile, thin, shiny skin, with sparse to absent hair growth, B/L.?TEMPERTURE GRADIENT (C):? decreased, cool to cool, proximal to distal, B/L.?PIGMENTATION:?rubrous, B/L.?EDEMA (C):?absent, B/L.?CLAUDICATION (C):?denies, B/L.?REST PAIN:?denies, B/L.?PARESTHESIA (C):?absent, B/L.?BURNING (C):?absent, B/L.?Nails: ?NAILS are:? Elongated, overgrown, dystrophic, lytic, greater than 3mm thick, discolored and friable with crumbly malodorous subungual debris, with pain on palpation,?TA, T1, T2, T3, T4, T5, T6, T7, T8, T9.?Dermatologic: ?SKIN FINDINGS:?Skin exam reveals Keratotic lesion(s) located at, Medial, IPJ, TA, Medial, IPJ, T5, SUB MTH (s), 1, B/L, SUB MTH (s), 2, Left, SUB MTH (s), 3, Left.?VERRUCA:?NOW NO FURTHER SIGN of mosaic papule(s) with skin lines now evident and visible, plantar Forefoot, LEFT.? Assessment: * Assessment: 1.?Atherosclerosis of [place] artery of both lower extremities, with unspecified presence of clinical manifestation - I70.203 (Primary)???Notes :Q7(A), Q8(2B), Q9(1B,2C)???2.?Tinea unguium - B35.1???3.?Pain in right toe(s) - M79.674???4.?Pain in left toe(s) - M79.675??? Plan: * Treatment: 2.?Tinea unguium?Procedure: 81093-AAMRBCY NAIL, 6 OR MORE * Procedures:?Debride Nail 6-10:?Nail debridement?Due to the clinical pathology outlined in the exam findings, performance of this nail treatment is medically necessary as its management by an unskilled/untrained nonprofessional would put this patients foot and overall health at risk. Therefore, debridement to affected nail(s), as described in exam (?TA, T1, T2, T3, T4, T5, T6, T7, T8, T9?), was performed exclusively by the physician of record to reduce/remove overall nail length, girth, thickness, subungual debris, and necrotic tissue, by manual and/or electrical means through the use of a nail nipper and/or dremel-type laboratory apparatus glass grinder, to a more viable healthy nail plate or bed tissue 6- 10 nails in total. Silver nitrate was used for any petechial bleeding as necessary. Definitive antifungal treatment options, both pharmaceutical and surgical, have been reviewed and discussed with the patient. The patient solely prefers the use of intermittent/as needed professional debridement services for their nail condition and understands the need for additional periodic treatments to maintain effectiveness in symptomatic relief - 65512.?Keratoma Treatment:?Parring or Cutting of Benign Hyperkeratotic Lesion(s)?(-57) More than 4 Lesions - Due to the at risk nature of the patients medical condition as documented in the exam findings, performance of this keratoderma treatment is medically necessary as its management by an unskilled/untrained nonprofessional would put this patients foot and overall health at risk. Therefore, the benign hyperkeratotic lesions, ( 6 ) in total, locations as stated and described in the exam (?Medial,?IPJ,?TA,?Medial,?IPJ,?T5,?SUB MTH (s),?1,?B/L,?SUB MTH (s),?2,?Left,?SUB MTH (s),?3,?Left?), were pared, and/or cut utilizing a sterile 15 blade, tissue nippers, and/or power dremel instrumentation by the physician of record - 73771, Q8.? * Procedure Codes:?16180 DEBRI DE NAIL, 6 OR MORE, Modifiers: XS 91578 TRIM SKIN LESIONS, OVER 4, Modifiers: XS , Q8 * Follow Up:?prn * Images: * Sign off status: Completed true * Provider:?Vu Wang DPM Date:?2024 Generated for Diana miranda/Ras/Melita on:?08/27/2024 11:49 AM EDT History and Physical Notes * HPI (History of Present Illness) Category Sub-Category Detail Notes Category Not es At Risk footcare Pt States Last PCP Visit: Date: 4 Examination Category Sub-Category Detail Notes Category Not es Dermatologic SKIN FINDINGS: Skin exam reveal s Keratotic lesion(s) located at, Medial, IPJ, TA, Medial, IPJ, T5, SUB MTH (s), 1, B/L, SUB MTH (s), 2, Left, SUB MTH (s), 3, Left VERRUCA: NOW NO FURTHER SIGN of mosaic papule(s) with skin lines now evident and visible, plantar Forefoot, LEFT Vascular DP PULSES (B): 0/4, B/L PT PULSES (B): 0/4, B/L CAPILLARY FILL TIME: delayed, all digits , B/L TEMPERTURE GRADIENT (C): decreased, cool to cool, proximal to distal, B/L TROPHIC CONDITION-TEXTURE/ELASTICITY/TURGOR/HAIR GROWTH (B): decreased, fragile, thin, shiny skin, wi th sparse to absent hair growth, B/L EDEMA (C): absent, B/L CLAUDICATION (C): denies, B/L REST PAIN: denies, B/L PIGMENTATION: rubrous, B/L PARESTHESIA (C): absent, B/L BURNING (C): absent, B/L Nails NAILS are: Elongated, overg rown, dystrophic, lytic, greater than 3mm thick, discolored and friable with crumbly malodorous subungual debris, with pain on palpation, TA, T1, T2, T3, T4, T5, T6, T7, T8, T9
--- OUTSIDE RECORDS SUMMARY | 2024-08-27 11:50 | XMS_ITS ---
Author Organization [facility] Address [address] [place] [address] Care Team Providers Care Distribution Transformer Assembler Name Role Phone Harini Lam MD Primary Care Provider Unavaila Vu Moss Unavailable [phone] REASON FOR VISIT SD Reschedule/Cancel/Trans. Issue Encounters Encounter Location Date Provider Diagnosis [address] [address] 06/08/2024 Vu Wang Plan Of Treatment Next Appt Details Provider Name:Vu Wang , 10/05/2024 01:45:00 PM, [address] [place] [address], [phone], Progress Notes * Kendra BHATT SDOB:[birth year] (73 yo F)Acc No.[id number]:06/08/2024 Patient:?MILLERAdrianane Earline :1950???Age:73 Y???Sex:Female Address:[address] [place], [place] [address], [address] * true * Date:? Generated for Printi ng/Faxing/eTransmitting on:?08/27/2024 11:50 AM EDT
--- OUTSIDE RECORDS SUMMARY | 2024-08-27 11:50 | XMS_ITS | Data Portability ---
Author Organization [facility], [facility] Address [address] [place] [address] Care Team Providers Care Dental Lab Technician Name Role Phone [facility] Benefits Counselor [facility] (DARSHANA REBOLLEDO) Orthopedic Surgeon [facility] Dermatolo gist 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 Patient has significant functional limitation in their activities of daily living and exercise capacity. Patient Goals: resume working, lying down left and right without dizziness. Clinical Goals: 1. Demonstrate symmetric pain free active, passive and resisted motions of the neck and upper extremities. 2. Demonstrate sufficient muscular endurance of core and shoulders to meet functional demands. 3. Indep with Juventino maneuver ex in 3 visits. Skilled physical therapy is needed to safely and progressively address impairments and functional limitations as outlined above. Treatment Plan: Patient to return 1-2 times per week for 4-6 weeks. We expect significant improvement in pain, impairment and function in this time frame. Treatment to Include: Therapeutic exercise and manual therapy and modalities as needed. [email or web address] Not available 02/24/2019 13:05:38 05/08/2020 05/08/2020 Patient agreed to this visit via a secure telehealth platform due to the COVID -19 pandemic. Patient understands this is a scheduled visit and the usual procedures with regard to billing and confidentiality apply. Patient was notified that the provider location is home Patient location: home During the visit the patient? s medical history and medical record were reviewed. The patient was notified to call our office for worsening or urgent symptoms. [email or web address] Not available 05/08/2020 08:14:48 Plan of Treatment Reminders Order Date Submit Date Provider Last Modified By Organization Details Last Modified Time Details Appointments None recorded. Lab lipid panel, serum 2022 023 [facility], [address] [place] [address], [address], 3 15:42:19 CMP, serum or plasma 2022 023 [facility], [address] [place] [address], [address], 3 15:42:18 TSH, serum or plasma 2022 023 [facility], [address] [place] [address], [address], 3 11:31:47 [email or web address] [address] [place] [address], [address], 3 13:25:07 Referral gastroent erologist referral - eval for colo and EGD, known celiac. she prefers ebing done at [facility] 2022 023 MARLY Santillan MD, [address] [place] [address], [address], 3 15:19:37 Procedures colonosco py procedure (PROC) [email or web address] Gastroenterol becca, [address] [place] [address], [address], 0 10:15:41 Surgeries None recorded. Imaging None recorded. Medication Orders oxybutyni n chloride ER 10 mg tablet,ex tended release 24 hr 2022 023 [facility]acy #[id number], [address] [facility] [place], [address], 3 08:17:13 estradiol 0.05 mg/24 hr weekly transderm al patch 2022 023 [id number] [address] [place], [address], 3 08:17:13 valacyclo vir 500 mg tablet 2022 023 [id number] [address] [place], [address], 3 08:17:[address] 10 mg tablet 2022 023 [id number] [address] [place], [address], 3 08:17:13 estradiol 0.05 mg/24 hr weekly transderm al patch 2019 020 [facility]/Pharmacy #[id number], [address] [place], [address], 0 08:26:28 oxybutyni n chloride ER 10 mg tablet,ex tended release 24 hr 2019 020 [id number] [address] [place], [address], 0 08:26:[address] 10 mg tablet 2019 020 [facility]/Pharmacy #[id number], [address] [place], [address], 0 08:26:29 valacyclo vir 500 mg tablet 2019 020 [facility]/Pharmacy #[id number], [address] [place], [address], 0 08:26:28 ProAir HFA 90 mcg/actua tion aerosol inhaler 2019 020 [facility]-[id number] 232 [facility]/Pharmacy #[id number], [address] [facility] [place], [address], 22:23:27 Patient TargetsNo targets recorded. Patient Instructions Encounter Date Encounter Id Patient Instructions Last Modified By Organization Details Last Modified Time 05/06/2019 [id number] well visit, wome n 50 to 65: care instructions [email or web address] Not available 05/06/2019 08:22:28 given card for Ellie of [facility] in case starting to feel overwhelmed with helping elderly parents in [place] ad her vision issues [email or web address] Not available 05/06/2019 08:27:49 05/08/2020 [id number] well visit, wome n 50 to 65: care instructions [email or web address] Not available 05/08/2020 08:15:01 08/17/2021 [id number] advance directives: care instructions [email or web address] Not available 08/17/2021 08:27:27 preventing falls : care instructions [email or web address] Not available 08/17/2021 08:27:27 hearing loss: care instructions tfurcolo Not available 08/17/2021 08:27:27 well visit, over 65: care instructions [email or web address] Not available 08/17/2021 08:27:27 well visit, wome n 50 to 65: care instructions [email or web address] Not available 08/17/2021 08:27:27 08/23/2022 [id number] well visit, wome n 50 to 65: care instructions [email or web address] Not available 08/23/2022 08:17:08 Reason for Referral Regulatory Associate Referral for Screening for malignant neoplasm of colon eval for colo and EGD, known celiac. she prefers ebing done at [facility] Referring Physician: Mariela Cordero, Family Medicine, Encounter Date: 08/23/2022 Results Created Date Observation Date Name Description Value Unit Range Abnormal Flag Note LastModifiedBy Organization Detail LastModifiedTime 05/06/20 19 05/06/2019 CBC WBC 5.99 K/? ? ?L 3.98-1 0.04 Not Available [address], [place], [address], 05/06/2019 11:11:32 05/06/2005/06/2019 CBC RBC 4.04 M/? ? ?L 3.93-5 .22 Not Available [address], [address], 05/06/2019 11:11:32 05/06/2005/06/2019 CBC HGB 13.1 g/dL 11.2-1 5.7 Not Available [address], [address], 05/06/2019 11:11:32 05/06/2005/06/2019 CBC HCT 39.9 % 34.1-4 4.9 Not Available [address], [address], 05/06/2019 11:11:32 05/06/2005/06/2019 CBC MCV 98.8 fL 79.4-9 4.8 high Not Available [address], [address], 05/06/2019 11:11:32 05/06/2005/06/2019 CBC MCH 32.4 pg 25.6-3 2.2 high Not Available [address], [address], 05/06/2019 11:11:32 05/06/2005/06/2019 CBC MCHC 32.8 g/dL 32.2-3 5.5 Not Available [address], [address], 05/06/2019 11:11:32 05/06/2005/06/2019 CBC plt 343 K/? ? ?L 182-36 9 Not Available [address], [address], 05/06/2019 11:11:32 05/06/2005/06/2019 CBC MPV 9.7 fL 9.4-12 .3 Not Available [address], [address], 05/06/2019 11:11:32 05/06/2005/06/2019 CBC neut% 66.3 % 34.0-7 1.1 Not Available [address], [address], 05/06/2019 11:11:32 05/06/2005/06/2019 CBC neut# 3.97 1.56-6 .13 Not Available [address], [address], 05/06/2019 11:11:32 05/06/2005/06/2019 CBC lymph % 25.5 % 19.3-5 1.7 Not Available [address], [address], 05/06/2019 11:11:32 05/06/2005/06/2019 CBC lymph # 1.53 K/? ? ?L 1.18-3 .74 Not Available [address], [address], 05/06/2019 11:11:32 05/06/2005/06/2019 CBC mono% 5.3 % 4.7-12 .5 Not Available [address], [address], 05/06/2019 11:11:32 05/06/2005/06/2019 CBC mono# 0.32 0.24-0 .56 Not Available [address], [address], 05/06/2019 11:11:32 05/06/2005/06/2019 CBC eo% 2.0 % 0.7-5. 8 Not Available [address], [address], 05/06/2019 11:11:32 05/06/2005/06/2019 CBC eo# 0.12 0.04-0 .36 Not Available [address], [address], 05/06/2019 11:11:32 05/06/20 19 05/06/2019 CBC baso% 0.7 % 0.1-1. 2 Not Available [address], [address], 05/06/2019 11:11:32 05/06/20 19 05/06/2019 CBC baso# 0.04 0.00-0 .08 Not Available [address], [address], 05/06/2019 11:11:32 05/06/2005/06/2019 CBC RDW-CV 12.0 % 11.7-1 4.4 Not Available [address], [address], 05/06/2019 11:11:32 05/06/2005/06/2019 CBC Ig% 0.200 % 0.000- 1.500 Ig % >0.5 Indic ates possi ble Left Shift Not Available [address], [address], 05/06/2019 11:11:32 05/06/2005/06/2019 CBC Ig# 0.010 0.000- 0.093 Not Available [address], [address], 05/06/2019 11:11:32 05/06/2005/06/2019 CBC NRBC% 0.0 % 0.0-0. 2 Not Available [address], [address], 05/06/2019 11:11:32 05/06/2005/06/2019 CBC NRBC# 0.000 0.000- 0.012 Not Available [address], [address], 05/06/2019 11:11:32 05/06/2005/06/2019 CMP, serum or plasm a glucose 82 mg/dL 70-100 Not Available [address], [address], 05/06/2019 12:12:50 05/06/20 19 05/06/2019 CMP, serum or plasm a BUN 14 mg/dL 7-18 Not Available [address], [address], 05/06/2019 12:12:50 05/06/20 19 05/06/2019 CMP, serum or plasm a creatinine 0.6 mg/dL 0.8-1. 3 low Not Available [address], [address], 05/06/2019 12:12:50 05/06/2005/06/2019 CMP, serum or plasm a B/C 23.3 ratio Not Available [address], [address], 05/06/2019 12:12:50 05/06/2005/06/2019 CMP, serum or plasm a GFR -non 111.0 mL/mi n Recom natalie d GFR by the Natio nal Kidne y Found ation >60 mL/mi n/1.7 3m2 - Cira l <60 mL/mi n/1.7 3m2 - Chron ic Kidne y Disea se <15 mL/mi n/1.7 3m2 - Kidne y Failu re Not Available [address], [address], 05/06/2019 12:12:50 05/06/2005/06/2019 CMP, serum or plasm a GFR - if 127.7 mL/mi n For Afric an Ameri can patie nts: Resul ts Multi plied by 1.21 Not Available [address], [address], 05/06/2019 12:12:50 05/06/20 19 05/06/2019 CMP, serum or plasm a sodium 142 mmol/ L 136-14 5 Not Available [address], [address], 05/06/2019 12:12:50 12/05/06/2019 CMP, serum or plasm a potassium 4.1 mmol/ L 3.5-5. 1 Not Available [address], [address], 05/06/2019 12:12:50 05/06/2005/06/2019 CMP, serum or plasm a chloride 105 mmol/ L 96-107 Not Available [address], [address], 05/06/2019 12:12:50 05/06/2005/06/2019 CMP, serum or plasm a anion gap 6.5 5.0-15 .0 Not Available [address], [address], 05/06/2019 12:12:50 05/06/2005/06/2019 CMP, serum or plasm a CO2 31 mmol/ L 21-32 Not Available [address], [address], 05/06/2019 12:12:50 05/06/2005/06/2019 CMP, serum or plasm a calcium 8.7 mg/dL 8.5-10 .3 Not Available [address], [address], 05/06/2019 12:12:50 05/06/2005/06/2019 CMP, serum or plasm a total protein 6.6 g/dL 6.4-8. 2 Not Available [address], [address], 05/06/2019 12:12:50 05/06/2005/06/2019 CMP, serum or plasm a albumin 3.8 g/dL 3.4-5. 0 Not Available [address], [address], 05/06/2019 12:12:50 05/06/2005/06/2019 CMP, serum or plasm a globulin 2.8 g/dL Not Available [address], [address], 05/06/2019 12:12:50 05/06/20 19 05/06/2019 CMP, serum or plasm a A/G 1.4 ratio 0.8-2. 0 Not Available [address], [address], 05/06/2019 12:12:50 05/06/2005/06/2019 CMP, serum or plasm a total bilirubin 0.50 mg/dL 0.00-1 .00 Not Available [address], [address], 05/06/2019 12:12:50 05/06/2005/06/2019 CMP, serum or plasm a AST 19 U/L 0-37 Not Available [address], [address], 05/06/2019 12:12:50 05/06/20 19 05/06/2019 CMP, serum or plasm a ALT 27 U/L 6-63 Not Available [address], [address], 05/06/2019 12:12:50 05/06/2005/06/2019 CMP, serum or plasm a alk. phos. 46 U/L 50-136 low Not Available [address], [address], 05/06/2019 12:12:50 05/06/2005/06/2019 rena tin, serum or plasm a ferritin 56 NG/mL 15-200 Not Available [address], [address], 05/06/2019 13:49:18 05/06/2005/06/2019 vitam in D, 25-hy droxy , total , serum vitamin D 25-hydroxy EIA 54.0 NG/mL 20.0-9 9.9 Thera py is based on measu remen t of total 25-OH D, with level s less than 20 ng/mL indic ative of Vitam in D defic iency . Level s betwe en 20ng/ mL and 30 ng/mL sugge st insuf ficie ncy. Optim al Level s are great er than 30 ng/mL . Not Available [address], [address], 05/06/2019 13:49:19 05/06/20 19 05/07/2019 lipid panel , serum cholesterol 170 mg/dL <200 mg/dl Lizzy able 200-2 39 mg/dl Borde rline High >240 mg/dl High Not Available [address], [address], 05/07/2019 14:46:42 05/06/20 19 05/07/2019 lipid panel , serum triglyceride s 70 mg/dL <150 mg/dL Cira l 150-1 99 mg/dL Borde rline High 200-4 99 mg/dL High >500 mg/dL Very High Not Available [address], [address], 05/07/2019 14:46:42 05/06/20 19 05/07/2019 lipid panel , serum direct HDL 56 mg/dL <40 mg/dl - Major Risk for CHD >60 mg/dl - Negat cristian Risk for CHD Not Available [address], [address], 05/07/2019 14:46:42 05/06/20 19 05/07/2019 LDL, calcu lated , serum (OBS) LDL - calculated 100.0 RISK CATEG ORY LDL GOAL _ CHD or CHD Risk Equiv alent s <100 mg/dl (10-y ear risk >20%) 2+ Risk Facto rs <130 mg/dl (10-y ear risk <= 20%) 0-1 Risk Facto r? <160 mg/dl ? Almos t all peopl e with 0-1 risk facto r have a 10 year risk <10%, thus 10 year risk asses ment in peopl e with 0-1 risk facto r is not neces amanda. Not Available [facility] [address] [facility], [place], [address], 05/07/2019 14:46:44 05/06/2005/09/2019 tissu e trans gluta yoselyn e iga Ab, serum tissue transglutami nase Ab, IgA 4 U/mL high Value Inter preta tion ----- ----- ----- ---- <4 No Antib ian Detec eric > or = 4 Antib ian Detec eric Not Available [facility] [address], [address], 05/09/2019 17:40:18 05/06/2005/09/2019 iga, quant itati ve, serum immunoglobul in A 182 mg/dL 70-320 normal Not Available [facility] [address], [address], 05/09/2019 17:40:20 05/06/2005/09/2019 zinc, serum or plasm a zinc 114 mcg/d L 60-130 This test was devel oped and its kasia tical perfo rmanc e duncan cteri stics have been deter mined by [facility] [place]. It has not been clear ed or appro gudelia by the U.S. Food and Drug Admin istra tion. This assay has been valid ated pursu ant to the CLIA regul ation s and is used for clini justin purpo ses. Not Available [facility] [address], [place], [address], 05/09/2019 17:40:20 05/06/2005/09/2019 vitam in A (reti nol), serum vitamin A (retinol) 56 mcg/d L 38-98 Vitam in suppl ement ation withi n 24 hours prior to blood draw may affec t the accur acy of the resul ts. This test was devel oped and its kasia tical perfo rmanc e duncan cteri stics have been deter mined by [facility] Vivas [facility] ETTA. It has not been clear ed or appro gudelia by the U.S. Food and Drug Admin istra tion. This assay has been valid ated pursu ant to the CLIA regul ation s and is used for clini justin purpo ses. 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 Negat cristian resul ts must be combi thomas with clini justin obser vatio ns, patie nt histo ry, and epide miolo gical infor matio n. Optim um speci men types and timin g for peak viral level s durin g infec tion by SARS- CoV-2 have not been deter mined . Colle ction of multi ple speci mens from the same patie nt may be neces amanda to detec t the virus . This test has been autho rized by the FDA under an Emerg ency Use Autho rizat ion (EUA) for use by autho rized labor atori es. Not Available [facility] (Outpatient) [address] [place], [address], 03/04/2020 21:57:09 09/22/19 23 09/22/2022 CBC (INCL UDES DIFF/ PLT) white blood cell count 7.6 thous and/u L 3.8-10 .8 normal Not Available [facility] [address], [place], [address], 09/22/2022 13:58:20 09/22/19 23 09/22/2022 CBC (INCL UDES DIFF/ PLT) red blood cell count 3.99 mary on/uL 3.80-5 .10 normal Not Available [facility] [address] Horacio B, [place], [address], 09/22/2022 13:58:20 09/22/19 23 09/22/2022 CBC (INCL UDES DIFF/ PLT) hemoglobin 13.2 g/dL 11.7-1 5.5 normal Not Available [facility] [address] Horacio B, [place], [address], 09/22/2022 13:58:20 09/22/19 23 09/22/2022 CBC (INCL UDES DIFF/ PLT) hematocrit 39.0 % 35.0-4 5.0 normal Not Available [facility] [address] [place]acio B, [place], [address], 09/22/2022 13:58:20 09/22/19 23 09/22/2022 CBC (INCL UDES DIFF/ PLT) MCV 97.7 fL 80.0-1 00.0 normal Not Available [facility] [address] [place]acio B, [place], [address], 09/22/2022 13:58:20 09/22/19 23 09/22/2022 CBC (INCL UDES DIFF/ PLT) MCH 33.1 pg 27.0-3 3.0 high Not Available [facility] [address] Horacio B, [place], [address], 09/22/2022 13:58:20 09/22/19 23 09/22/2022 CBC (INCL UDES DIFF/ PLT) MCHC 33.8 g/dL 32.0-3 6.0 normal Not Available [facility] [address], [place], [address], 09/22/2022 13:58:20 09/22/19 23 09/22/2022 CBC (INCL UDES DIFF/ PLT) RDW 12.1 % 11.0-1 5.0 normal Not Available [facility] [address], [place], [address], 09/22/2022 13:58:20 09/22/19 23 09/22/2022 CBC (INCL UDES DIFF/ PLT) platelet count 320 thous and/u L 140-40 0 normal Not Available [facility] [address], [place], [address], 09/22/2022 13:58:20 09/22/19 23 09/22/2022 CBC (INCL UDES DIFF/ PLT) MPV 10.3 fL 7.5-12 .5 normal Not Available [facility] [address], [place], [address], 09/22/2022 13:58:20 09/22/19 23 09/22/2022 CBC (INCL UDES DIFF/ PLT) absolute neutrophils 5259 cells /uL 1500-7 800 normal Not Available [facility] [address], [place], [address], 09/22/2022 13:58:20 09/22/19 23 09/22/2022 CBC (INCL UDES DIFF/ PLT) absolute lymphocytes 1642 cells /uL 850-39 00 normal Not Available [facility] [address], [place], [address], 09/22/2022 13:58:20 09/22/19 23 09/22/2022 CBC (INCL UDES DIFF/ PLT) absolute monocytes 456 cells /uL 200-95 0 normal Not Available [facility] [address], [place], [address], 09/22/2022 13:58:20 09/22/19 23 09/22/2022 CBC (INCL UDES DIFF/ PLT) absolute eosinophils 182 cells /uL 15-500 normal Not Available [facility] [address], [place], [address], 09/22/2022 13:58:20 09/22/19 23 09/22/2022 CBC (INCL UDES DIFF/ PLT) absolute basophils 61 cells /uL 0-200 normal Not Available [facility] [address], [place], [address], 09/22/2022 13:58:20 09/22/19 23 09/22/2022 CBC (INCL UDES DIFF/ PLT) neutrophils 69.2 % normal Not Available [facility] [address], [place], [address], 09/22/2022 13:58:20 09/22/19 23 09/22/2022 CBC (INCL UDES DIFF/ PLT) lymphocytes 21.6 % normal Not Available [facility] [address], [place], [address], 09/22/2022 13:58:20 09/22/19 23 09/22/2022 CBC (INCL UDES DIFF/ PLT) monocytes 6.0 % normal Not Available [facility] [address], [place], [address], 09/22/2022 13:58:20 09/22/19 23 09/22/2022 CBC (INCL UDES DIFF/ PLT) eosinophils 2.4 % normal Not Available [facility] [address], [place], [address], 09/22/2022 13:58:20 09/22/19 23 09/22/2022 CBC (INCL UDES DIFF/ PLT) basophils 0.8 % normal Not Available [facility] [address], [address], 09/22/2022 13:58:20 09/22/19 23 09/23/2022 COMP. METAB OLIC PANEL glucose 79 mg/dL 70-100 Not Available [address], [address], 09/23/2022 15:42:18 09/22/19 23 09/23/2022 COMP. METAB OLIC PANEL BUN 12 mg/dL 7-18 Not Available [address], [address], 09/23/2022 15:42:18 09/22/19 23 09/23/2022 COMP. METAB OLIC PANEL creatinine 0.6 mg/dL 0.8-1. 3 low Not Available [address], [address], 09/23/2022 15:42:18 09/22/19 23 09/23/2022 COMP. METAB OLIC PANEL B/C 20.0 ratio Not Available [address], [address], 09/23/2022 15:42:18 09/22/19 23 09/23/2022 COMP. METAB OLIC PANEL GFR >=60ML /MIN mL/mi n normal >=60m L/min - Cira l or midly reduc ed <60mL /min- Decre ased kidne y funct ion <15mL /min - Kidne y failu re [facility] calcu lates estim ated Glome rular Filtr ation Rate (eGFR ) using the Chron ic Kidne y Disea se Epide miolo gy Colla borat ion (CKD- EPI) Equat ion (Michael r et. al 2020) as recom natalie d by the Natio nal Kidne y Found ation . eGFR is based on age, serum creat inine , and sex. CKD-E PI does not calcu late eGFR by race, does not apply to child sampson (age <18 years ), and shoul d not be used in pregn alaina. Not Available [address], [address], 09/23/2022 15:42:18 09/22/19 23 09/23/2022 COMP. METAB OLIC PANEL sodium 144 mmol/ L 136-14 5 Not Available [address], [address], 09/23/2022 15:42:18 09/22/19 23 09/23/2022 COMP. METAB OLIC PANEL potassium 4.7 mmol/ L 3.5-5. 1 Not Available [address], [address], 09/23/2022 15:42:18 09/22/19 23 09/23/2022 COMP. METAB OLIC PANEL chloride 105 mmol/ L 96-107 Not Available [address], [address], 09/23/2022 15:42:18 09/22/19 23 09/23/2022 COMP. METAB OLIC PANEL anion gap 9.1 5.0-15 .0 Not Available [address], [address], 09/23/2022 15:42:18 09/22/19 23 09/23/2022 COMP. METAB OLIC PANEL CO2 30 mmol/ L 21-32 Not Available [address], [address], 09/23/2022 15:42:18 09/22/19 23 09/23/2022 COMP. METAB OLIC PANEL calcium 8.9 mg/dL 8.5-10 .3 Not Available [address], [address], 09/23/2022 15:42:18 09/22/19 23 09/23/2022 COMP. METAB OLIC PANEL total protein 6.5 g/dL 6.4-8. 2 Not Available [address], [address], 09/23/2022 15:42:18 09/22/19 23 09/23/2022 COMP. METAB OLIC PANEL albumin 3.8 g/dL 3.4-5. 0 Not Available [address], [address], 09/23/2022 15:42:18 09/22/19 23 09/23/2022 COMP. METAB OLIC PANEL globulin 2.7 g/dL Not Available [address], [address], 09/23/2022 15:42:18 09/22/19 23 09/23/2022 COMP. METAB OLIC PANEL A/G 1.4 ratio 0.8-2. 0 Not Available [address], [address], 09/23/2022 15:42:18 09/22/19 23 09/23/2022 COMP. METAB OLIC PANEL total bilirubin 0.40 mg/dL 0.00-1 .00 Not Available [address], [address], 09/23/2022 15:42:18 09/22/19 23 09/23/2022 COMP. METAB OLIC PANEL AST 24 U/L 0-37 Not Available [address], [address], 09/23/2022 15:42:18 09/22/19 23 09/23/2022 COMP. METAB OLIC PANEL ALT 29 U/L 6-63 Not Available [address], [address], 09/23/2022 15:42:18 09/22/19 23 09/23/2022 COMP. METAB OLIC PANEL alk. phos. 57 U/L 50-136 Not Available [address] [place], [address], 09/23/2022 15:42:18 09/22/1909/23/2022 LIPID PANEL cholesterol 193 mg/dL <200 mg/dl Lizzy able 200-2 39 mg/dl Borde rline High >240 mg/dl High Not Available [address], [address], 09/23/2022 15:42:19 09/22/1909/23/2022 LIPID PANEL triglyceride s 52 mg/dL <150 mg/dL Cira l 150-1 99 mg/dL Borde rline High 200-4 99 mg/dL High >500 mg/dL Very High Not Available [address], [address], 09/23/2022 15:42:19 09/22/19 23 09/23/2022 LIPID PANEL direct HDL 60 mg/dL <40 mg/dl - Major Risk for CHD >60 mg/dl - Negat cristian Risk for CHD Not Available [address], [address], 09/23/2022 15:42:19 09/22/1909/23/2022 LDL - CALCU LATED LDL - calculated 122.6 RISK CATEG ORY LDL GOAL _ CHD or CHD Risk Equiv alent s <100 mg/dl (10-y ear risk >20%) 2+ Risk Facto rs <130 mg/dl (10-y ear risk <= 20%) 0-1 Risk Facto r? <160 mg/dl ? Almos t all peopl e with 0-1 risk facto r have a 10 year risk <10%, thus 10 year risk asses ment in peopl e with 0-1 risk facto r is not necnadja amanda. Not Available [address], [address], 09/23/2022 15:42:20 09/22/19 23 09/24/2022 TSH TSH 0.94 uIU/m L 0.50-6 .00 The [facility]i can [facility] ge [facility] Endoc rinol ogy and [facility] can Thyro id Assoc iatio n recom mend goal TSH value s marisol en 0.4-4 .0 mIU/m L. Not Available [address], [address], 09/24/2022 11:31:47 10/08/19 23 10/07/2022 CBC AND DIFFE RENTI AL WBC 6.79 K/uL 4.00-1 1.00 Not Available [facility] (Outpatient) [address] [place] [address], [address], 10/07/2022 15:40:41 10/08/19 23 10/07/2022 CBC AND DIFFE RENTI AL RBC 4.04 M/uL 3.72-5 .30 Not Available [facility] (Outpatient) [address] [place] [address], [address], 10/07/2022 15:40:41 10/08/19 23 10/07/2022 CBC AND DIFFE RENTI AL HGB 13.0 g/dL 11.4-1 5.9 Not Available [facility] (Outpatient) [address] [place] [address], [address], 10/07/2022 15:40:41 10/08/19 23 10/07/2022 CBC AND DIFFE RENTI AL HCT 40.5 % 34.2-4 6.8 Not Available [facility] (Outpatient) [address] [place] [address], [address], 10/07/2022 15:40:41 10/08/19 23 10/07/2022 CBC AND DIFFE RENTI AL plt 316 K/uL 140-43 0 Not Available [facility] (Outpatient) [address] [place] [address], [address], 10/07/2022 15:40:41 10/08/19 23 10/07/2022 CBC AND DIFFE RENTI AL MCV 100.2 fL 78.0-9 7.0 high Not Available [facility] (Outpatient) [address] [place], [address], 10/07/2022 15:40:41 10/08/19 23 10/07/2022 CBC AND DIFFE RENTI AL MCH 32.2 pg 25.0-3 3.0 Not Available [facility] (Outpatient) [address] [place], [address], 10/07/2022 15:40:41 10/08/19 23 10/07/2022 CBC AND DIFFE RENTI AL MCHC 32.1 g/dL 32.0-3 6.0 Not Available [facility] (Outpatient) [address] [place] [address], [address], 10/07/2022 15:40:41 10/08/19 23 10/07/2022 CBC AND DIFFE RENTI AL RDW 12.3 % 11.0-1 6.0 Not Available [facility] (Outpatient) [address] [place], [address], 10/07/2022 15:40:41 10/08/19 23 10/07/2022 CBC AND DIFFE RENTI AL MPV 10.0 fL 8.4-12 .8 Not Available [facility] (Outpatient) [address] [place], [address], 10/07/2022 15:40:41 10/08/19 23 10/07/2022 CBC AND DIFFE RENTI AL diff method Auto Not Available [facility] (Outpatient) [address] [place], [address], 10/07/2022 15:40:41 10/08/19 23 10/07/2022 CBC AND DIFFE RENTI AL neuts 66.8 % 43.0-7 5.0 Not Available [facility] (Outpatient) [address] [place], [address], 10/07/2022 15:40:41 10/08/19 23 10/07/2022 CBC AND DIFFE RENTI AL lymphs 25.2 % 18.2-4 7.4 Not Available [facility] (Outpatient) [address] [place], [address], 10/07/2022 15:40:41 10/08/19 23 10/07/2022 CBC AND DIFFE RENTI AL monos 4.6 % 4.00-1 1.00 Not Available [facility] (Outpatient) [address] [place], [address], 10/07/2022 15:40:41 10/08/19 23 10/07/2022 CBC AND DIFFE RENTI AL eos 2.4 % 0.0-8. 0 Not Available [facility] (Outpatient) [address] [place], [address], 10/07/2022 15:40:41 10/08/19 23 10/07/2022 CBC AND DIFFE RENTI AL basos 0.9 % 0.0-2. 0 Not Available [facility] (Outpatient) [address] [place] [address], [address], 10/07/2022 15:40:41 10/08/19 23 10/07/2022 CBC AND DIFFE RENTI AL granulocytes , immature (%) 0.1 % 0.0-0. 9 Not Available [facility] (Outpatient) [address] [place] [address], [address], 10/07/2022 15:40:41 10/08/19 23 10/07/2022 CBC AND DIFFE RENTI AL absolute neuts 4.54 K/uL 1.80-7 .70 Not Available [facility] (Outpatient) [address] [place] [address], [address], 10/07/2022 15:40:41 10/08/19 23 10/07/2022 CBC AND DIFFE RENTI AL absolute lymphs 1.71 K/uL 1.00-3 .10 Not Available [facility] (Outpatient) [address] [place], [address], 10/07/2022 15:40:41 10/08/19 23 10/07/2022 CBC AND DIFFE RENTI AL absolute monos 0.31 K/uL 0.20-0 .80 Not Available [facility] (Outpatient) [address] [place], [address], 10/07/2022 15:40:41 10/08/19 23 10/07/2022 CBC AND DIFFE RENTI AL absolute eos 0.16 K/uL 0.00-0 .80 Not Available [facility] (Outpatient) [address] [place], [address], 10/07/2022 15:40:41 10/08/19 23 10/07/2022 CBC AND DIFFE RENTI AL absolute basos 0.06 K/uL 0.00-0 .09 Not Available [facility] (Outpatient) [address] [place], [address], 10/07/2022 15:40:41 10/08/19 23 10/07/2022 CBC AND DIFFE RENTI AL granulocytes , immature 0.01 K/uL 0.00-0 .05 Not Available [facility] (Outpatient) [address] [place], [address], 10/07/2022 15:40:41 10/08/19 23 10/07/2022 PT-IN R PT 11.3 sec 10.2-1 2.9 Not Available [facility] (Out[facility]) [address] [place], [address], 10/07/2022 16:02:11 10/08/19 23 10/07/2022 PT-IN R INR 1.0 0.9-1. 1 Thera peuti c range for oral Vitam in K antag onist s: 2.0-3 .5 Not Available [facility] (Outpatient) [address] [place], [address], 10/07/2022 16:02:11 10/08/19 23 10/07/2022 LIPID PANEL HDL 60 mg/dL Inter preta tion <40 mg/dL : Low HDL mango stero l (david r risk facto r for CHD) Great er than or equal to 60 mg/dL : High HDL mango stero l ( neg ative risk facto r for CHD) HDL - mango stero l is affec eric by a stephe r of facto rs, e.g. aviva miranda, olivier vazquez, lincoln barger, sex and age. Not Available [facility] (Out[facility]) [address] [place], [address], 10/07/2022 16:24:34 10/08/19 23 10/07/2022 LIPID PANEL cholesterol 209 mg/dL 0-240 Not Available [facility] ([facility]) [address] [place], [address], 10/07/2022 16:24:34 10/08/19 23 10/07/2022 LIPID PANEL triglyceride s 139 mg/dL 30-160 Not Available [facility] (Outpatient) [address] [place], [address], 10/07/2022 16:24:34 10/08/19 23 10/07/2022 LIPID PANEL LDL 121 mg/dL 50-129 LDL level s in terms of risk for coron gabriel heart disea se: <100 mg/dL : Optim al 100-1 29 mg/dL : Near or above optim al 130-1 59 mg/dL : Volodymyr miller high 160-1 89 mg/dL : High >190 mg/dL : Very High Not Available [facility] ([facility]) [address] [place], [address], 10/07/2022 16:24:34 10/08/19 23 10/07/2022 LIPID PANEL cardiac risk ratio 3.5 3.3-4. 4 Not Available [facility] ([facility]) [address] [place], [address], 10/07/2022 16:24:34 10/08/19 23 10/07/2022 IMMUN OGLOB ULIN A IgA 192 mg/dL 70-400 Not Available [facility] ([facility]) [address] [place], [address], 10/07/2022 16:35:12 10/08/19 23 10/07/2022 COMPR EHENS CRISTIAN METAB OLIC PANEL sodium 140 mmol/ L 133-14 6 Not Available [facility] (Outpatient) [address] [place], [address], 10/07/2022 16:35:15 10/08/19 23 10/07/2022 COMPR EHENS CRISTIAN METAB OLIC PANEL potassium 4.2 mmol/ L 3.3-5. 1 Not Available [facility] (Outpatient) [address] [place], [address], 10/07/2022 16:35:15 10/08/19 23 10/07/2022 COMPR EHENS CRISTIAN METAB OLIC PANEL chloride 103 mmol/ L 96-108 Not Available [facility] (Out[facility]) [address] [place], [address], 10/07/2022 16:35:15 10/08/19 23 10/07/2022 COMPR EHENS CRISTIAN METAB OLIC PANEL CO2 27 mmol/ L 21-35 Not Available [facility] ([facility]) [address] [place], [address], 10/07/2022 16:35:15 10/08/19 23 10/07/2022 COMPR EHENS CRISTIAN METAB OLIC PANEL BUN 17 mg/dL 6-19 Not Available [facility] (Outpatient) [address] [place], [address], 10/07/2022 16:35:15 10/08/19 23 10/07/2022 COMPR EHENS CRISTIAN METAB OLIC PANEL creatinine 0.50 mg/dL 0.5-1. 5 Not Available [facility] (Outpatient) [address] [place], [address], 10/07/2022 16:35:15 10/08/19 23 10/07/2022 COMPR EHENS CRISTIAN METAB OLIC PANEL glucose 87 mg/dL 70-99 Not Available [facility] (Outpatient) [address] [place], [address], 10/07/2022 16:35:15 10/08/19 23 10/07/2022 COMPR EHENS CRISTIAN METAB OLIC PANEL albumin 4.2 g/dL 3.9-4. 8 Not Available [facility] (Outpatient) [address] [place], [address], 10/07/2022 16:35:15 10/08/19 23 10/07/2022 COMPR EHENS CRISTIAN METAB OLIC PANEL total protein 6.9 g/dL 6.5-8. 0 Not Available [facility] (Outpatient) [address] [place], [address], 10/07/2022 16:35:15 10/08/19 23 10/07/2022 COMPR EHENS CRISTIAN METAB OLIC PANEL calcium 10.0 mg/dL 8.4-10 .3 Not Available [facility] (Outpatient) [address] [place], [address], 10/07/2022 16:35:15 10/08/19 23 10/07/2022 COMPR EHENS CRISTIAN METAB OLIC PANEL alkaline phosphatase 63 U/L 39-117 Not Available [facility] (Out[facility]) [address] [place], [address], 10/07/2022 16:35:15 10/08/19 23 10/07/2022 COMPR EHENS CRISTIAN METAB OLIC PANEL total bilirubin 0.3 mg/dL 0.0-1. 2 Not Available [facility] (Outpatient) [address] [place], [address], 10/07/2022 16:35:15 10/08/19 23 10/07/2022 COMPR EHENS CRISTIAN METAB OLIC PANEL AST 27 U/L 0-37 Not Available [facility] (Outpatient) [address] [place], [address], 10/07/2022 16:35:15 10/08/19 23 10/07/2022 COMPR EHENS CRISTIAN METAB OLIC PANEL ALT 19 U/L 0-40 Not Available [facility] (Outpatient) [address] [place], [address], 10/07/2022 16:35:15 10/08/19 23 10/07/2022 COMPR EHENS CRISTIAN METAB OLIC PANEL globulin 2.7 g/dL 1-4.8 Not Available [facility] (Outpatient) [address] [place], [address], 10/07/2022 16:35:15 10/08/19 23 10/07/2022 COMPR EHENS CRISTIAN METAB OLIC PANEL eGFR 100 mL/mi n/1.7 3m2 >59 Estim ated glome rular filtr ation rate calcu lated using the CKD-E PI refit equat ion. Not Available [facility] (Outpatient) [address] [place], [address], 10/07/2022 16:35:15 10/08/19 23 10/07/2022 COMPR EHENS CRISTIAN METAB OLIC PANEL anion gap 14 mmol/ L 10-20 Not Available [facility] (Outpatient) [address] [place], [address], 10/07/2022 16:35:15 10/08/19 23 10/07/2022 C-KODAK CTIVE PROTE IN C reactive protein <3.0 mg/L 0.0-4. 0 Not Available [facility] (Outpatient) [address] [place], [address], 10/07/2022 16:35:16 10/08/19 23 10/07/2022 RENA TIN ferritin 66 ug/L 13-150 Not Available [facility] (Outpatient) [address] [place], [address], 10/07/2022 16:35:18 10/08/19 23 10/07/2022 IRON AND IRON HOLLIS NG CAPAC ITY iron 93 ug/dL 30-160 Not Available [facility] (Outpatient) [address] [place], [address], 10/07/2022 16:35:19 10/08/19 23 10/07/2022 IRON AND IRON HOLLIS NG CAPAC ITY iron binding capacity 319 ug/dL 228-42 8 Not Available [facility] (Outpatient) [address] [place], [address], 10/07/2022 16:35:19 10/08/19 23 10/07/2022 IRON AND IRON HOLLIS NG CAPAC ITY transferrin saturat. 29 % 15-50 Not Available [facility] (Outpatient) [address] [place], [address], 10/07/2022 16:35:19 10/08/19 23 10/07/2022 TSH TSH 1.58 uIU/m L 0.27-4 .20 Not Available [facility] (Outpatient) [address] [place], [address], 10/07/2022 16:35:20 10/08/19 23 10/07/2022 VITAM IN B12 vitamin B12 1505 pg/mL 232-12 45 high Not Available [facility] (Outpatient) [address] [place], [address], 10/07/2022 21:28:57 10/08/19 23 10/07/2022 FOLAT E folic acid >20.0 NG/mL 4.2-19 .9 high Not Available [facility] (Outpatient) [address] [place], [address], 10/07/2022 21:28:58 10/08/19 23 10/07/2022 25-OH VITAM IN D 25 oh vit D (total) 73 NG/mL 30-60 high Not Available [facility] (Outpatient) [address] [place], [address], 10/07/2022 21:28:59 10/08/19 23 10/09/2022 ANTIN UCLEA R ANTIB IAN (DARRYL) DARRYL screen on hep 2 Negati ve negati ve Not Available [facility] (Outpatient) [address] [place], [address], 10/09/2022 10:58:56 10/08/19 23 10/09/2022 INTRI NSIC FACTO R BLOCK ING ANTIB ODIES intr factr block Ab Negati ve negati ve Not Available [facility] (Outpatient) [address] [place], [address], 10/09/2022 22:06:48 10/08/19 23 10/09/2022 INTRI NSIC FACTO R BLOCK ING ANTIB ODIES if block Ab comment SEE NOTE (NOTE ) Intri nsic Facto r Block ing Antib ian (IFBA ) antib odies are absen t in appro ximat ailyn 50% of indiv idual s with douglas gutierrez (HUY). The absen ce of eleva eric IFBA antib odies does not rule out the prese nce of HUY; annelise er studi es such as gastr in testi ng may be indic ated. Not Available [facility] (Outpatient) [address] [place], [address], 10/09/2022 22:06:48 10/08/19 23 10/09/2022 TISSU E TRANS GLUTA YOSELYN E IGA ttg IgA antibody 3.8 U/mL <4.0 (negat cristian) Not Available [facility] (Outpatient) [address] [place], [address], 10/09/2022 22:06:49 10/08/19 23 10/10/2022 COPPE R, BLOOD copper, serum 93 mcg/d L 77-206 (NOTE ) ----- ----- ----- ----A DDITI ONAL INFOR MATIO N---- ----- ----- ----- This test was erin bone and its perfo rmanc e duncan cteri stics deter mined by [facility] in a rosmery r consi stent with CLIA requi remen ts. This test has not been clear ed or appro gudelia by the U.S. Food and Drug Admin istra tion. Not Available [facility] (Out[facility]) [address] [place], [address], 10/10/2022 11:20:17 10/08/1910/10/2022 ZINC zinc, S 116 mcg/d L 60-106 high (NOTE ) ----- ----- ----- ----A DDITI ONAL INFOR MATIO N---- ----- ----- ----- This test was karlosel oped and its perfo rmanc e duncan cteri stics deter mined by [facility] in a rosmery r consi stent with CLIA requi remen ts. This test has not been clear ed or appro gudelia by the U.S. Food and Drug Admin istra tion. Not Available [facility] (Outpatient) [address] [place], [address], 10/10/2022 11:20:19 10/08/19 23 10/11/2022 VITAM IN A vitamin A 75.1 mcg/d L 32.5-7 8.0 (NOTE ) ----- ----- ----- ----A DDITI ONAL INFOR MATIO N---- ----- ----- ----- This test was devel oped and its perfo rmanc e duncan cteri stics deter mined by [facility] in a rosmery r consi stent with CLIA requi remen ts. This test has not been clear ed or appro gudelia by the U.S. Food and Drug Admin istra tion. Not Available [facility] (Outpatient) [address] [place], [address], 10/11/2022 16:52:59 10/08/19 23 10/11/2022 METHY LMALO PROMISE ACID, SERUM methylmaloni c acid 0.16 nmol/ mL <=0.40 (NOTE ) ----- ----- ----- ----A DDITI ONAL INFOR MATIO N---- ----- ----- ----- This test was devel oped and its perfo rmanc e duncan cteri stics deter mined by [facility] in a rosmery r consi stent with CLIA requi remen ts. This test has not been clear ed or appro gudelia by the U.S. Food and Drug Admin istra tion. Not Available [facility] (Out[facility]) [address] [place], [address], 10/11/2022 22:35:33 10/08/19 23 10/11/2022 PARIE SHEKHAR CELL ANTIB IAN parietal cell Ab,IgG <10.0 U <=20.0 (negat cristian) Not Available [facility] (Outpatient) [address] [place], [address], 10/11/2022 22:35:42 01/11/20 23 01/16/2023 ANATO JUAN M PATHO LOGY path report [facility] [address] [facility] [place] [address] Lab Direc tor: Anamaria naranjo MD Surgi justin Patho logy Repor t Acces kiko #: [id number] FINAL PATHO LOGIC DIAGN OSIS: A. DUODE NUM, BIOPS Y: No patho logic abnor malit ies. B. STOMA CH, BIOPS Y: No patho logic abnor malit ies. C. GASTR OESOP HAGEA L JUNCT ION AT 40 CM, BIOPS Y: Reflu x disea se. D. 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 Dayan ctron icall y Sanam d Out By Cha cullen MD By his/h er [facility] above , the patho logis t liste d as jluis cabrera the Final Diagn osis certi fies that he/sh e has perso filiberto revie wed this case and confi rmed or corre cted the diagn osis. PROCE DURES /ADDE NDA ADDEN DUM Order ed Date: 2022 SEE SEPAR ATE WATS 3D HISTO CYTOL OGY REPOR T (CASE #[id number]) PERFO RMED AT [facility] [address] 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 SPECI MENS SUBMI TTED: A: DUODE NUM, BIOPS Y B: STOMA CH, BIOPS Y C: GASTR OESOP HAGEA L JUNCT ION AT 40 CM, BIOPS Y D: RECTU M, POLYP S X 2 GROSS DESCR IPTIO N A. DUODE NUM, BIOPS Y: Forma demetrio, 2 fragm ents each 0.3 cm, entir ailyn mazariegose tte A1. B. STOMA CH, BIOPS Y: Forma demetrio, 5 fragm ents each 0.2 cm, entir ailyn casse tte B1. C. GASTR OESOP HAGEA L JUNCT ION AT 40 CM, BIOPS Y: Forma demetrio, 4 fragm ents each measu ring 0.1 cm, entir ailyn casse tte C1. D. RECTU M, POLYP S X 2: Forma demetrio, multi ple fragm ents measu ring in aggre gate 1.8 cm, submi tted entir ailyn casse tte D1. LT 2022 Gross ing Staff : KARLI johnson Name: KENDRA GILMAN : 1950 (Age: 72) Sex: F 8 Insti tutio n: [facility] Locat ion: [facility] Date of Opera tion: 2022 Date of Acces kiko: 2022 Repor eric: 2022 12:13 Resul ts To: Cholo Lopez Furgurvinder lo DO, BA Not Available [facility] (Out[facility]) [address] [place], [address], 01/16/2023 13:01:45 09/15/19 20 09/14/2019 XR, lumba r spine No observ ation record ed. [facility] Not Available 2019 10:42:35 09/15/19 20 09/14/2019 XR, hip, unila teral No observ ation record ed. [facility] Not Available 2019 10:42:35 11/17/19 20 11/03/2019 MRI, brain , w/wo contr ast No observ ation record ed. tfurcolo Not Available 2019 15:10:56 12/20/19 20 12/20/2019 MAMMO , scree dionne, tomos ynthe sis, bilat eral, w/ CAD Bilate ral full-f ield digita l screen ing mammog homero is obtain ed and read in conjun ction with comput er-aid ed detect ion. Tomosy nthesi s as well as 2-D C view imagin g of both breast s in two planes also obtain ed. Compar ministerio made to multip le prior, most recent December 15, 2018, and most remote October 08, 2013. No domina nt mass, mauricio ectura l distor tion, worris ome asymme try, or suspic ious calcif icatio n is identi fied. No skin or nipple findin g of concer n is apprec iated. There are multip le nodule s again noted withou t clear change , includ ing subare olar left breast and field laborer ior upper inner right breast . Largel y puncta te calcif icatio ns bilate rally, asymme trical ly more promin ent on the left, also stable . IMPRES KIKO: No mammog raphic change indica tive of malign alaina. Annual screen ing is recomm ended. BI-RAD S CATEGO RY 2 - BENIGN DENSIT Y: There are scatte red fibrog landul ar densit ies. Electr onical ly Signed by: JAMES ALLEN on 12/20/19 20 8:21 AM Interp reted by: James allen MD Signed by: James allen MD 12/20/19 Final result MARIELA L FURCOL O MARIELA L FURCOL O MARIELA L FURCOL O MARLY [facility] [address] [place] [address], [id number], 12/20/2019 17:30:48 12/20/19 20 12/20/2019 MAMMO , scree dionne No observ ation record ed. [email or web address] [address] [place] [address], [id number], 12/20/2019 10:28:48 12/20/19 20 12/20/2019 MAMMO , scree dionne, tomos ynthe sis, bilat eral, w/ CAD Bilate ral full-f ield digita l screen ing mammog homero is obtain ed and read in conjun ction with comput er-aid ed detect ion. Tomosy nthesi s as well as 2-D C view imagin g of both breast s in two planes also obtain ed. Compar ministerio made to multip le prior, most recent December 15, 2018, and most remote October 08, 2013. No domina nt mass, mauricio ectura l distor tion, worris ome asymme try, or suspic ious calcif icatio n is identi fied. No skin or nipple findin g of concer n is apprec iated. There are multip le nodule s again noted withou t clear change , includ ing subare olar left breast and field laborer ior upper inner right breast . Largel y puncta te calcif icatio ns bilate rally, asymme trical ly more promin ent on the left, also stable . IMPRES KIKO: No mammog raphic change indica tive of malign alaina. Annual screen ing is recomm ended. BI-RAD S CATEGO RY 2 - BENIGN DENSIT Y: There are scatte red fibrog landul ar densit ies. Electr onical ly Signed by: JAMES ALLEN on 12/20/19 20 8:21 AM Interp reted by: James allen MD Signed by: James allen MD 12/20/19 Final result MARIELA L FURCOL O MARIELA L FURCOL O MARIELA L FURCOL O tfurcolo [facility] [address] [facility], [place], [address], 12/20/2019 10:28:48 12/29/1912/28/2020 MAMMO , scree dionne, tomos ynthe sis, bilat eral, w/ CAD STUDY: Bilate ral screen ing mammog homero with tomosy nthesi s and CAD TECHNI QUE: Bilate ral full-f ield digita l screen ing mammog homero is obtain ed and read in conjun ction with comput er-aid ed detect ion. Tomosy nthesi s as well as 2-D C view imagin g were obtain ed. COMPAR MINISTERIO: Compar ministerio made to multip le prior, most recent December 20, 2019, and most remote October 20, 2014. BREAST COMPOS ITION: There are scatte red areas of fibrog landul ar densit y BILATE RAL BREAST S: No signif icant masses , suspic ious calcif icatio ns or other abnorm alitie s are seen. IMPRES KIKO: BILATE RAL BREAST S: Negati ve, no eviden ce of malign alaina. Normal interv al follow -up is recomm ended in 12 months . Bi-RAD S: BI-RAD S CATEGO RY: 1 - Negati ve. DENSIT Y: There are scatte red fibrog landul ar densit ies. Electr onical ly Signed by: Mikki gutierrez on 021 9:21 AM Interp reted by: Mikki gutierrez MD Signed by: Mikki gutierrez MD 1 Final result Screen ing mammog [place] Last mm 2019 MARIELA L FURCOL O MARIELA L FURCOL O MARIELA L FURCOL O [facility] [address] [place] [address], [id number], 12/28/2020 12:18:42 12/29/19 21 12/28/2020 MAMMO , scree dionne No observ ation record ed. [facility] [address] [place] [address], [id number], 12/28/2020 12:18:43 01/02/20 22 01/01/2022 MAMMO , scree dionne, tomos ynthe sis, bilat eral, w/ CAD STUDY: Bilate ral screen ing mammog homero with tomosy nthesi s and CAD TECHNI QUE: Bilate ral full-f ield digita l screen ing mammog homero is obtain ed and read in conjun ction with comput er-aid ed detect ion. Tomosy nthesi s as well as 2-D C view imagin g were obtain ed. COMPAR MINISTERIO: Compar ministerio made to multip le prior, most recent December 28, 2020, and most remote October 20, 2014. BREAST COMPOS ITION: The breast tissue is hetero geneou sly dense, which may obscur e small masses . BILATE RAL BREAST S: No signif icant masses , suspic ious calcif icatio ns or other abnorm alitie s are seen in either breast . IMPRES KIKO: BILATE RAL BREAST S: Negati ve, no specif ic mammog raphic eviden ce of malign alaina. Normal interv al follow -up is recomm ended in 12 months . BI-RAD S: BI-RAD S CATEGO RY: 1 - Negati ve. DENSIT Y: The breast tissue is hetero geneou sly dense, which could obscur e a lesion on mammog homero. Electr onical ly Signed by: Mikki gutierrez on 022 5:59 PM Interp reted by: Mikki gutierrez MD Signed by: Mikki gutierrez MD 2 Final result Screen ing mammog [place] Last mm 2020 BR1 MARIELA L FURCOL O MARIELA L FURCOL O MARIELA L FURCOL O [facility] [address] [place] [address], [id number], 01/17/2022 17:02:38 01/02/20 22 01/01/2022 MAMMO , scree dionne No observ ation record ed. [facility] [facility] [address] [place] [address], [id number], 01/17/2022 17:02:39 05/31/19 23 05/14/2022 bone densi ty No observ ation record ed. [facility] [address], [id number], 06/04/2022 04:28:15 05/31/19 23 05/14/2022 DEXA No observ ation record ed. [facility] [address], [address], 06/03/2022 11:22:43 05/31/19 23 05/14/2022 bone densi ty No observ ation record ed. [facility] [address], [address], 06/03/2022 11:22:44 05/31/19 23 05/14/2022 bone densi ty No observ ation record ed. [facility]ritis [address], [id number], 06/03/2022 11:22:44 01/13/20 23 05/14/2022 DEXA No observ ation record ed. [facility] Arthritis [address], [address], 06/03/2022 11:22:45 05/31/19 23 05/14/2022 bone densi ty No observ ation record ed. [address], [address], 06/03/2022 11:22:45 05/31/19 23 05/14/2022 bone densi ty No observ ation record ed. [address], [address], 06/03/2022 11:22:45 05/31/19 23 05/14/2022 DEXA No observ ation record ed. [address], [address], 06/03/2022 11:22:46 06/01/19 23 05/14/2022 bone densi ty No observ ation record ed. [address], [address], 06/03/2022 11:22:46 01/04/20 23 01/03/2023 MAMMO , scree dionne, tomos ynthe sis, bilat eral, w/ CAD AVAILA BLE COMPAR MINISTERIO: 022 throug h 004. Bilate ral 3-D tomosy nthesi s with 2-D recons tructi ons in the CC and MLO projec tion. Comput er-aid ed detect ion system also utiliz ed. No new mass, asymme try, mauricio ectura l distor tion or suspic ious calcif icatio ns have become appare nt in either breast . Multip le chroni c bilate ral circum scribe d masses unchan ged. IMPRES KIKO: No findin gs suspic ious for malign alaina. In the absenc e of a worris ome palpab le abnorm ality, annual screen ing mammog homero is recomm ended. BI-RAD S CATEGO RY: 2 - Benign findin g. DENSIT Y: The breast tissue is hetero geneou sly dense, which could obscur e a lesion on mammog homero. Electr onical ly Signed by: Kody álvarez on 023 1:01 PM Interp reted by: Kody álvarez MD Signed by: Kody álvarez MD 3 Final result Routin e Screen ing- no concer ns. NCFP Last mm 22 br 1 MARIELA L FURCOL O MARIELA L FURCOL O MARIELA L FURCOL O [address] [facility] [address] [place] [address], [id number], 01/03/2023 16:50:27 01/04/20 23 01/03/2023 MAMMO , scree dionne No observ ation record ed. [address] [facility] [address] [place] [address], [address], 01/03/2023 16:50:28 Result Notes None recorded. Problems Name Problem SNOMED Code Status Onset Date Resolution Date Notes Provider Name and Address Organization Details Recorded Time Asthma 836599620 Completed 12/26/2014 Mariela Cordero D.O. 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 [address] [place], [address] , [facility] 5 09:35:05 Cough 61128941 Completed 200704/07/2013 Mariela Furcolo D.O. [address] [place], [address] , [facility] 5 09:35:06 Precordial pain 43936488 Completed 200304/07/2013 Mariela Furcolo D.O. [address] [place], [address] , [facility] 5 09:35:06 Extrinsic asthma with asthma attack Completed 200412/26/2014 Mariela Furcolo D.O. [address] [place], [address] , [facility] 5 09:35:05 Celiac disease 129596423 Active Not Available [facility] 3 22:23:29 Tendinitis 43385253 Completed 200712/26/2014 Mariela Furcolo D.O. [address] [place], [address] , [facility] 5 09:35:05 Acute cystitis 66843294 Completed 200404/07/2013 Mariela Furcolo D.O. [address] [place], [address] , [facility] 5 09:35:05 Epistaxis Completed 04/07/2013 Mariela Furcolo D.O. [address] [place], [address] , [facility] 5 09:35:06 Allergic rhinitis 85795314 Active Not Available [facility] 3 22:23:29 Allergic asthma without status asthmaticu s 46672492 Completed 200512/26/2014 Mariela Furcolo D.O. [address] [place], [address] , [facility] 5 09:35:05 Hammer toe 891167103 Completed 200712/26/2014 Mariela Cordero D.O. [address] [place], [address] , [facility] 5 09:35:05 Finding by method 699893067 Completed 200704/07/2013 Mariela Marciacolo D.O. [address] [place], [address] , [facility] 5 09:35:06 Congenital valgus deformity of foot 29447704 Completed 200712/26/2014 Mariela Yamilexlo D.O. [address] [place], [address] , [facility] 5 09:35:06 Acute stress disorder 77490944 Completed 200404/07/2013 Mariela Yamilexlo D.O. [address] [place], [address] , [facility] 5 09:35:05 Common cold 07408297 Completed 200404/07/2013 Mariela iGl D.O. [address] [place], [address] , [facility] 5 09:35:05 Allergic rhinitis caused by pollen 54111545 Completed 200212/26/2014 Mariela Kaminskilo D.O. [address] [place], [address] , [facility] 5 09:35:05 Anemia 185020422 Completed 200112/26/2014 Mariela Marciacolo D.O. [address] [place], [address] , [facility] 5 09:35:05 Acute maxillary sinusitis 82766720 Completed 200204/07/2013 Mariela Marciacolo D.O. [address] [place], [address] , [facility] 5 09:35:05 Menopausal symptom 21584158 Completed 200104/07/2013 Mariela Marciacolo D.O. [address] [place], [address] , [facility] 5 09:35:05 Low back pain 466528950 Completed 200112/26/2014 Mariela Furcolo D.O. [address] [place], [address] , [facility] 5 09:35:05 Pityriasis rosea 41516524 Completed 200212/26/2014 Mariela Furcolo D.O. [address] [place], [address] , [facility] 5 09:35:05 Acute bronchitis 55667909 Completed 200704/07/2013 Mariela Furcolo D.O. [address] [place], [address] , [facility] 5 09:35:05 Malaise and fatigue 438264550 Completed 200104/07/2013 Mariela Kennedycolo D.O. [address] [place], [address] , [facility] 5 09:35:06 Notes:Some problems listed i n Documents: #[id number], #[id number], #[id number] could not be added to this patient's chart. Please review these documents and add these problems to the patient's chart manually as needed. Problem Notes None recorded. Procedures Surgical History Date Name Laterality Status Provider Name and Address Organization Details Recorded Time 08/18/19 Medicare Wellness Visit completed Angel Parr Randa [facility] 08/17/2021 07:38:52 08/18/19 22 Alcohol use screening completed Angel Parr Randa [facility] 08/17/2021 07:38:52 08/18/19 22 Cardiovascular disease risk reduction counseling completed Angel Parr [facility] 08/17/2021 07:38:52 09/07/19 21 Total hip arthroplasty completed Luisa Pedersen LPN [facility] 09/11/2020 08:25:46 05/08/20 20 Medicare Wellness Visit completed Angel Parr [facility] 05/08/2020 07:48:35 05/08/20 prevention-cardiov ascular risk reduction counseling completed Angel Parr [facility] 05/08/2020 07:48:35 05/08/20 prevention-annual alcohol misuse screening completed Angel Parr [facility] 05/08/2020 07:48:35 02/25/20 Physical Activity Counselling completed Kendra Escamilla, PT [address] [place], [address], [facility] 02/24/2019 13:02:34 02/25/20 02604: PT Eval, Moderate Complexity completed Kendra Escamilla PT [address] [place], [address], [facility] 02/24/2019 13:02:39 06/25/19 Transitional care completed HUY Venegas [address] [place], [address], [facility] 06/25/2018 12:55:15 04/11/20 15 Asthma Control Test (12 + years old) completed Kendra Deluca LPN [facility] 04/11/2015 09:09:22 04/06/20 14 Asthma Control Test (12 + years old) completed Kendra Deluca [employer] [facility] 04/06/2014 09:14:32 04/01/20 13 Asthma Control Test (12 + years old) completed Kendra Deluca LPN [facility] 04/01/2013 08:40:50 11/28/19 12 Asthma Control Test (12 + years old) completed Kali Pagan [facility] 11/28/2011 09:09:42 Total Hysterectomy completed Mariela cook D.O. [address] [place], [address], [facility] 04/06/2014 09:26:18 Imaging Results Imaging Date Name Status LastModified by Organiz ation Details LastModified Time 09/14/2019 XR, lumbar spine completed [facility] Information not available 09/15/2019 10:42:35 09/14/2019 XR, hip, unilateral completed [facility] Information not available 09/15/2019 10:42:35 11/03/2019 MRI, brain, w/wo contrast completed [facility] Information not available 11/17/2019 15:10:56 12/20/2019 MAMMO, screening, tomosynthesis, bilateral, w/ CAD completed [facility] [address] [place] [address], [address], 12/20/2019 17:30:48 12/20/2019 MAMMO, screening completed [facility] [address] [place] [address], [address], 12/20/2019 10:28:48 12/20/2019 MAMMO, screening, tomosynthesis, bilateral, w/ CAD completed [facility] [address] [place] [address], [address], 12/20/2019 10:28:48 12/28/2020 MAMMO, screening, tomosynthesis, bilateral, w/ CAD completed [facility] [address] [place] [address], [address], 12/28/2020 12:18:42 12/28/2020 MAMMO, screening completed [facility] [address] [place] [address], [address], 12/28/2020 12:18:43 01/01/2022 MAMMO, screening, tomosynthesis, bilateral, w/ CAD completed [facility] [address] [place] [address], [address], 01/17/2022 17:02:38 01/01/2022 MAMMO, screening completed [facility] [address] [place] [address], [address], 01/17/2022 17:02:39 05/14/2022 bone density completed [facility] [address] [place] [address], [address], 06/04/2022 04:28:15 05/14/2022 DEXA completed [facility] [address] [place] [address], [address], 06/03/2022 11:22:43 05/14/2022 bone density completed [facility] [address] [place] [address], [address], 06/03/2022 11:22:44 05/14/2022 bone density completed [facility] [address] [place] [address], [address], 06/03/2022 11:22:44 05/14/2022 DEXA completed [facility] [address] [place] [address], [address], 06/03/2022 11:22:45 05/14/2022 bone density completed [facility] [address] [place] [address], [address], 06/03/2022 11:22:45 05/14/2022 bone density completed [facility] [address] [place] [address], [address], 06/03/2022 11:22:45 05/14/2022 DEXA completed [facility] [address] [place] [address], [address], 06/03/2022 11:22:46 05/14/2022 bone density completed [facility] [address], [address], 06/03/2022 11:22:46 01/03/2023 MAMMO, screening, tomosynthesis, bilateral, w/ CAD completed [address] [facility] [address] [place] [address], [address], 01/03/2023 16:50:27 01/03/2023 MAMMO, screening completed [address] [facility] [address] [place], [address], 01/03/2023 16:50:28 Procedure Notes None recorded. Medical Equipment None Reported. Allergies Allergen ID Allergen Name Allergen Category Reaction Reaction Severity Criticality Documentation Date Start Date Code Code System Note Provider Name and Address Organization Details Recorded Time 813836 prednison e medicatio n other Not available Not available 05/08/2020 8640 RxNorm adver se react ion- cloud ed think ing, felt bad Mariela Furcolo D.O. [address] [facility], [place], [address], [facility] 0 08:21:17 154673 mold extract environme nt Not available Not available Not available 08/17/2021 27565 8 RxNorm RICHARD Hamilton eduin [facility] 2 07:43:39 109094 cat dander environme nt Not available Not available Not available 08/17/2021 17512 UNK RICHARD Hamilton eduin [facility] 2 07:43:47 Medications Name Sig Start Date Stop Date Status Note LastModified by Organization Details LastModified Time valacyclo vir hcl 500 mg tabs active Not Available Not Available Not Available fluzone split 5178-3235 susp active Not Available Not Available Not Available elmiron cap 100mg active Not Available Not Available No t Available cyclobenz apr tab 5mg active Not Available Not Available Not Available estradiol 0.05 mg/24hr ptwk active Not Available Not Available Not Available elmiron 100 mg caps active Not Available Not Available Not Available climara pro dis weekly active Not Available Not Available Not Available zovirax oin 5% active Not Available Not Available Not Available oxybutyni n tab 15mg er active Not Available Not Available Not Available smz/tmp ds tab 800-160 active Not Available Not Available Not Available singulair tab 10mg active Not Available Not Available Not Available monteluka st sodium 10 mg tabs active Not Available Not Available Not Available peak air radha mis adlt/ped active Not Available Not Available Not Available oxybutyni n chloride er 10 mg tb24 active Not Available Not Available Not Available monteluka st tab 10mg active Not Available Not Available Not Available proair hfa 108 (90 base) mcg/act aers active Not Available Not Available Not Available celecoxib 200 mg capsule TAKE 1 CAPSULE BY MOUTH EVERY DAY *START AFTER SURGERY* 08/17 completed Not Available Not Available Not Available amoxicill in 500 mg capsule TAKE 4 TABLETS BY MOUTH 1 HOUR PRIOR TO DENTAL APPOINTM ENT active Pre dental Not Available Not Available Not Available naproxen 375 mg tablet Take 1 tablet twice a day by oral route. active Not Available Not Available No t Available albuterol sulfate 2.5 mg/3 mL (0.083 %) solution for nebulizat ion 2007 active Take 3.00 ml every 4 hours as needed Not Available Not Available Not Available fexofenad ine 60 mg tablet Take 1 tablet 3 times a day by oral route for 90 days. 2010 active Not Available Not Available Not Avai lable oxybutyni n chloride ER 10 mg tablet,ex tended release 24 hr TAKE 1 TABLET BY MOUTH EVERY DAY 2022 active Not Available Not Available Not Avai lable azithromy zacarias 250 mg tablet 05/08 completed Not Available Not Available Not Available valacyclo vir 1 gram tablet Take 1 tablet 3 times a day by oral route for 7 days. 10/23 completed Not Available Not Available Not Available Keflex 500 mg capsule Take 1 capsule 3 times a day by oral route for 7 days. 05/21 completed Not Available Not Available Not Available estradiol 0.05 mg/24 hr weekly transderm al patch PLACE 1 PATCH ONTO CLEAN, DRY SKIN ONCE A WEEK NEEDS APPOINTM ENT active Not Available Not Available No t Available fluoroura cil 5 % topical cream 02/21 completed Not Available Not Available Not Available Vitamin B-6 200 mg tablet 2008 active take one tablet daily Not Available Not Available Not Available Elmiron 100 mg capsule TAKE 1 CAPSULE BY MOUTH 3 TIMES A DAY active Not Available Not Available No t Available naproxen 250 mg tablet TAKE 2 TABLETS BY MOUTH TWICE A DAY WITH MEALS 10/22 completed Not Available Not Available Not Available fexofenad ine 180 mg tablet Take 1 tablet every day by oral route. 2015 active Takes 1/2 tab OTC daily- MR Not Available Not Available Not Available Vitamin C 500 mg chewable tablet Take 1 tablet every day by oral route. 2015 active 1000mg qd Not Available Not Available Not Available valacyclo vir 500 mg tablet TAKE 1 TABLETS BY MOUTH twice a day 2022 active Not Available Not Available Not Avai lable Tamiflu 75 mg capsule Take 1 capsule twice a day by oral route as directed for 5 days. 04/27 completed Not Available Not Available Not Available folic acid 400 mcg tablet TAKE 1 TABLET(S ) EVERY DAY BY ORAL ROUTE. active Not Available Not Available No t Available sulfameth oxazole 800 mg-trimet hoprim 160 mg tablet TAKE 1 TABLET BY MOUTH TWICE A DAY FOR 3 DAYS 05/08 completed Not Available Not Available Not Available doxycycli ne monohydra te 100 mg tablet Take 2 tablets every day by oral route as directed . 2013 active Not Available Not Available Not Avai lable tramadol 50 mg tablet TAKE 1 TABLET BY MOUTH EVERY 4 HOURS NEEDED FOR MILD PAIN (MAX OF 400MG/DA Y) 08/17 completed Not Available Not Available Not Available selenium 200 mcg tablet 2008 active take one tablet daily Not Available Not Available Not Available aspirin 325 mg tablet,de layed release TAKE 1 TABLET BY MOUTH TWICE A DAY STARTING AFTER SURGERY 08/17 completed Not Available Not Available Not Available meclizine 25 mg tablet Take 1 tablet 3 times a day by oral route as needed. 05/06 completed Not Available Not Available Not Available benzonata te 100 mg capsule TAKE 1 CAPSULE BY MOUTH THREE TIMES A DAY FOR 5 DAYS 10/22 completed Not Available Not Available Not Available pantopraz ole 40 mg tablet,de layed release TAKE 1 TABLET BY MOUTH EVERY DAY 08/17 completed Not Available Not Available Not Available Vitamin B-12 250 mcg tablet Take 1 tablet every day by oral route. 2015 active take one tablet daily Not Available Not Available Not Available prednison e 50 mg tablet 02/21 completed pt states no longer taking this med 06/25/18LC Not Available Not Available Not Available polymyxin B sulfate 10,000 unit-trim ethoprim 1 mg/mL eye drops INSTILL 1 DROP INTO BOTH EYES 4 TIMES A DAY 11/28 completed not taking anymore 11/28/17- tt Not Available Not Available Not Available oxycodone 5 mg capsule TAKE 1 CAPSULE BY MOUTH EVERY 6 HOURS NEEDED FOR PAIN 05/08 completed Not Available Not Available Not Available docusate sodium 100 mg capsule TAKE 1 CAPSULE BY MOUTH TWICE A DAY 08/17 completed Not Available Not Available Not Available L-Lysine Extra Strength 1,000 mg tablet Take 1 tablet every day by oral route. 2015 active take one tablet daily Not Available Not Available Not Available monteluka st 10 mg tablet TAKE 1 TABLET BY MOUTH EVERY DAY DIRECTED . 2022 active Not Available Not Available Not Avai lable aspirin 81 mg tablet 2008 active take one tablet daily Not Available Not Available Not Available ibuprofen 600 mg tablet TAKE 1 TABLET BY MOUTH EVERY 6 HOURS 05/08 completed Not Available Not Available Not Available levofloxa zacarias 500 mg tablet 10/22 completed Not Available Not Available Not Available estradiol 0.01% (0.1 mg/gram) vaginal cream APPLY 1 GRAM VAGINALL Y AT BEDTIME X2 WEEKS THEN 1 GRAM TWICE A WEEK THEREAFT ER 05/08 completed Not Available Not Available Not Available albuterol sulfate HFA 90 mcg/actua tion aerosol inhaler INHALE 2 PUFFS BY MOUTH EVERY 4 HOURS active PRN Not Available Not Available No t Available Zovirax 5 % topical ointment Apply by topical route every 3 hours 6 times a day. 2011 active Not Available Not Available Not Avai lable fluticaso ne propionat e 50 mcg/actua tion nasal spray,gladis pension SPRAY 1 SPRAY INTO EACH NOSTRIL EVERY DAY 10/22 completed Not Available Not Available Not Available doxycycli ne hyclate 100 mg tablet TAKE 1 TABLET BY MOUTH TWICE A DAY FOR 5 DAYS 10/22 completed Not Available Not Available Not Available naproxen 500 mg tablet 10/22 completed Not Available Not Available Not Available Ditropan XL 15 mg tablet,ex tended release 2005 active Take 1.00 tabs daily Not Available Not Available Not Available Tylenol Extra Strength 500 mg tablet 2 tabs 2 - times per day active Not Available Not Available No t Available oxycodone 5 mg tablet TAKE 1 TABLET BY MOUTH EVERY 4 HOURS NEEDED FOR SEVERE PAIN 08/17 completed Not Available Not Available Not Available Denta 5000 Plus 1.1 % cream BRUSH THOROUGH LY AFTER BREAKFAS T AND AT BEDTIME AND SPIT OUT EXCESS. DO NOT RINSE VIGOROUS LY. active Not Available Not Available No t Available azithromy zacarias 500 mg tablet 02/21 completed pt states no longer taking this med 06/25/18LC Not Available Not Available Not Available cyclobenz aprine 5 mg tablet TAKE 1 TABLET BY MOUTH THREE TIMES A DAY NEEDED 04/30 completed Not Available Not Available Not Available Flovent HFA 220 mcg/actua tion aerosol inhaler 2007 active Take 1.00 puffs twice daily Not Available Not Available Not Available Calcium 600 2008 active take one tablet daily Not Available Not Available Not Available Climara active Not Available Not Avail able Not Available Vitamin E-400 2008 active take one tablet daily Not Available Not Available Not Available multivita min with iron-mine ral 2008 active take one tablet daily Not Available Not Available Not Available Climara Pro Apply patch weekly-p er HOGA active Not Available Not Available No t Available Femhrt Low Dose 0.5 mg-2.5 mcg tablet 2007 active Take 1.00 tabs every day Not Available Not Available Not Available diclofena c 1 % topical gel APPLY 2 GRAMS TO EFFECTED AREA DIRECTED 4 TIMES DAILY active Not Available Not Available No t Available Vitamin D 2,000 unit capsule Takes 1 Daily 04/18 completed Not Available Not Available Not Available vitamin D3-vitami n K2 2008 active one tab daily Not Available Not Available Not Available Probiotic Take 1 capsule daily active Not Available Not Available No t Available Vitamin D3 50 mcg (2,000 unit) capsule TAKE ONE CAPSULE BY MOUTH EVERY DAY active Not Available Not Available No t Available Fluvirin 45 mcg (15 mcg x 3)/0.5 mL intramusc ular suspensio n 04/16 completed Not Available Not Available Not Available Shingrix (PF) 50 mcg/0.5 mL intramusc ular suspensio n, kit TO BE ADMINIST ERED BY PHARMACI ST FOR IMMUNIZA TION 02/23 completed Not Available Not Available Not Available Fluzone High-Dose 9492-0859 (PF) 180 mcg/0.5 mL intramusc ular syringe inject 0.5 millilit er intramus cularly 02/23 completed Not Available Not Available Not Available Fluzone High-Dose Quad (PF) 240 mcg/0.7 mL IM syringe PHARMACY ADMINIST ERED 05/08 completed Not Available Not Available Not Available Vitals Date Recorded Body height Body mass index (BMI) Body weight Heart rate Systolic blood pressure Diastolic blood pressure Provider Name and Address Organization Details Last Updated DateTime 9 163.58 cm 20 kg/m2 55023.9 g 60 /min 112 mm[Hg] 64 mm[Hg] RICHARD Hamilton [facility] 9 07:53:24 Date Recorded Body weight Provider Name an d Address Organization Details Last Updated DateTime 05/08/2020 94000.86 g RICHARD Hamilton [facility] 05/08/2020 07:57:41 Date Recorded Body weight Body mass index (BMI) Body height Oxygen saturation Oxygen saturation in Arterial blood by Pulse oximetry Heart rate Systolic blood pressure Diastolic blood pressure Provider Name and Address Organization Details Last Updated DateTime 2 89145.6 8 g 20.4 kg/m2 163.83 cm 99 % 99 % 59 /min 119 mm[Hg] 65 mm[Hg] Angel Parr Randa [facility] 2 07:48:46 Date Recorded Body weight Body mass index (BMI) Body height Heart rate Oxygen saturation Oxygen saturation in Arterial blood by Pulse oximetry Systolic blood pressure Diastolic blood pressure Provider Name and Address Organization Details Last Updated DateTime 3 54688.4 5 g 20.6 kg/m2 165.1 cm 61 /min 100 % 100 % 116 mm[Hg] 76 mm[Hg] Angel Parr Randa [facility] 3 07:46:53 Social History Question Answer Notes LastModified by Organizat ion Details LastModified Time Tobacco Smoking Status Never Smoker checked kb 08-23-22 RICHARD Hamilton [facility] 08/23/2022 07:52:58 What Is Your Level Of Alcohol Consumption? Occasional 3x A Week With Dinner 08-23-22 Kb Information not available 08/23/2022 What Is Your Level Of Caffeine Consumption? Moderate Information not available 04/06/2014 How Much Tobacco Do You Chew? None [email or web address] Information not available 10/31/2014 What Type Of Diet Are You Following? GLUTENFREE Lactuse Intolerant [email or web address] Information not available 10/16/2012 Do You Or Have You Ever Used E-cigarettes Or Vape? 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 0 [email or web address] Information not available 10/16/2012 Are There Any Guns Present In Your Home? No [email or web address] Information not available 10/16/2012 Live Alone Or With Others? With Others [email or web address] Information not available 10/16/2012 Patient Has Health Care Proxy Signed And In Chart Yes [email or web address] Information not available 09/10/2021 Marital Status [email or web address] Informatio n not available 10/16/2012 Mosquito Repellent Used Routinely Yes [email or web address] Information not available 10/16/2012 What Was The Date Of Your Most Recent Tobacco Screening? 05/08/2020 Information not available 05/08/2020 How Many Children Do You Have? 1 [email or web address] Information not available 10/16/2012 Seat Belts Used Routinely Yes [email or web address] Information not available 10/16/2012 Are You Sexually Active? No Information not available 04/01/2013 Smoke Alarm In Home Yes [email or web address] Information not available 10/16/2012 Do You Or Have You Ever Used Smokeless Tobacco? Never Used Smokeless Tobacco Information not available 02/21/2019 How Much Tobacco Do You Smoke? No Information not available 02/21/2019 General Stress Level High [email or web address] Information not available 10/16/2012 Do You Use Sunscreen Routinely? Yes Information not available 10/16/2012 Sex: Unknown Functional Status None recorded. Mental Status None recorded. Family History Relationship Description Onset Age of this Age Resolved Age Notes LastModified by Organization Details LastModified Time Mother Coronary arterioscler osis 70 [email or web address] Not available 2013 09:26:18 Notes:Cardiovascular: Family history is remarkable for coronary artery disease. Mom, Dad, 2 brothers. ( ages 70s, 60s, 40s respectfully) Endocrine: Family history is remarkable for diabetes mellitus. Father had it, he was insulin dependent. Both brothers as well as mother have diabetes. Family members are obese. Kidney failure in her insulin dependent brother. No breast, colon or ovarian cancer in the immendiate family, maternal aunt had colon cancer. Mother has some polyps. Medical History Condition Response Allergic Rhinitis Y Osteoarthritis Y Osteopenia Y GASTROINTESTINAL Asthma Y OTHER Gynecological HistoryNo gynecological history recorded. Obstetrics History GPAL:G 0 P 0 0 0 0 Immunizations Vaccine Type Date Status Note Provider Nam e and Address Organization Details Recorded Time Td(adult) unspecified formulation 2 completed Not Available [facility] 01/03/2023 22:23:29 influenza, unspecified formulation 2 completed Not Available [facility] 01/03/2023 22:23:29 influenza, unspecified formulation 6 completed Not Available [facility] 01/03/2023 22:23:29 influenza, unspecified formulation 0 completed Not Available [facility] 01/03/2023 22:23:29 influenza, unspecified formulation 1 completed Not Available [facility] 01/03/2023 22:23:29 Influenza, split virus, trivalent, preservative 2 completed Not Available [facility] 01/03/2023 22:23:30 Pneumococcal conjugate PCV 13 5 completed Not Available [facility] 06/05/2019 02:34:59 Influenza, split virus, trivalent, preservative 3 completed Not Available [facility] 01/03/2023 22:23:29 Influenza, split virus, trivalent, preservative 4 completed Not Available [facility] 01/03/2023 22:23:30 Influenza, high-dose, trivalent, PF 7 completed Not Available [facility] 06/05/2019 02:34:53 Influenza, high-dose, trivalent, PF 5 completed Not Available [facility] 01/03/2023 22:23:29 Influenza, high-dose, trivalent, PF 9 completed Not Available [facility] 06/05/2019 02:32:29 zoster live 8 completed Not Available [facility] 01/03/2023 22:23:29 Influenza, high-dose, trivalent, PF 8 completed Not Available [facility] 01/03/2023 22:23:29 zoster live 8 completed Not Available [facility] 01/03/2023 22:23:29 Influenza, high-dose, quadrivalent, PF 0 completed Not Available [facility] 01/03/2023 22:23:29 Td (adult), 2 Lf tetanus toxoid, preservative free, adsorbed 2 completed Angel Parr RMA [place], [facility] 08/17/2021 09:48:26 COVID-19, mRNA, LNP-S, PF, 100 mcg/0.5mL dose or 50 mcg/0.25mL dose 1 completed Not Available [facility] 01/03/2023 22:23:29 COVID-19, mRNA, LNP-S, bivalent, PF, 50 mcg/0.5 mL or 25mcg/0.25 mL dose 2 completed Not Available [facility] 01/03/2023 22:23:29 SARS-COV-2 (COVID-19) vaccine, UNSPECIFIED 3 completed CLAUDIA Holt, [facility] 02/24/2023 16:39:34 influenza, unspecified formulation 3 completed CLAUDIA Holt, [facility] 02/24/2023 16:39:44 Tdap 1 completed Not Available [facility] 06/05/2019 02:38:55 pneumococcal polysaccharide PPV23 1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
== END 2024-08-27 11:46 | disposition home or self-care (01) ==
PROVIDERS: PCP Internal Medicine; Visit Provider Internal Medicine
DX: R10.9 Unspecified abdominal pain (principal); K57.92 Diverticulitis of intestine, part unspecified, without perforation or abscess without bleeding

== ENCOUNTER 2024-08-27 10:52 | Outpatient (REF) | payer MEDICARE, SELFPAY ==
--- OUTSIDE RECORDS SUMMARY | 2024-08-27 12:34 | XMS_ITS | Data Portability ---
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 Symptoms have since resolved with Juventino maneuvers and vestibular physical therapy. I gave her reassurance that labyrinthitis is unusual and is unlikely to recur in the future. We discussed the pathophysiology of BPPV and Juventino maneuvers and that positional vertigo may recur which could require further visits with vestibular therapist. Did recommend she continue with the physical therapy exercises to help with her lower extremity strength and coordination, particularly in light of her visual issues which can contribute negatively to her overall balance function. We went over her audiometric testing which shows excellent auditory thresholds except for a minimal high-frequency sensorineural hearing loss in the high frequencies. [email or web address] Not available 12/02/2023 10:49:19 Plan of Treatment Reminders Order Date Submit Date Provider Last Modified By Organization Details Last Modified Time Details Appointments None record ed. Lab None record ed. Referral None record ed. Procedures None record ed. Surgeries None record ed. Imaging None record ed. Medication Orders None record ed. Patient TargetsNo targets recorded. Patient InstructionsNo instructions recorded. Reason for Referral None Reported. Results Created Date Observation Date Name Description Value Unit Range Abnormal Flag Note LastModifiedBy Organization Detail LastModifiedTime 12/04/19 24 audio gram No observ ation record ed. [email or web address] Not Available 11/16 16:08:21 01/08/20 24 10/14/2019 imagi ng/di agnos tic resul t No observ ation record ed. [email or web address] Not Available 03:23:22 01/08/20 24 11/03/2019 imagi ng/di agnos tic resul t No observ ation record ed. [email or web address] Not Available 03:23:54 01/08/20 24 11/03/2019 imagi ng/di agnos tic resul t No observ ation record ed. [email or web address] Not Available 03:23:55 Result Notes None recorded. Problems Name Problem SNOMED Code Status Onset Date Resolution Date Notes Provider Name and Address Organization Details Recorded Time Sensorin eural hearing loss of bilatera l ears 204762464 Active 2019 Sensorin eural hearing loss, bilatera l; Note: Date Diagnose d: 0 3:31 PM (H90.3) Not Available [facility] 4 02:39:36 Sleep disorder 04101503 Completed 201912/02/2023 Other sleep disorder s; Note: Date Diagnose d: 11/17/2019 11:22 AM (G47.8) Note: Date Diagnose d: 11/17/2019 11:22 AM (G47.8) RITCHIE GONZALEZ MD [address] [place] [address], [place], [address] , [facility] - [facility] 4 10:49:23 Labyrint hitis 47650438 Active 2019 Labyrint hitis, unspecif ied ear; Note: Date Diagnose d: 0 3:31 PM (H83.09) Not Available [facility] 4 02:39:45 Dizzines s and giddines s 828851156 Active 2023 LARA PINEDA [address] [place] [address], [place], [address] , [facility] 4 09:59:06 Benign paroxysm al position al vertigo 534732945 Active 2023 RITCHIE GONZALEZ MD [address] [address], [place], [address] , [place] - [facility] 4 10:45:46 Problem Notes None recorded. Procedures Surgical History Date Name Laterality Status Provider Name and Address Organization Details Recorded Time 12/02/19 24 Comp Audio with Tymps (62440 & 58395) completed LARA PINEDA [address] [address], [place], [address], [place] - [facility] 12/02/2023 09:58:50 total replacement of hip completed Ellen Estrada [place] - [facility] 12/02/2023 09:58:20 Imaging Results Imaging Date Name Status LastModified by Organiz ation Details LastModified Time 12/04/2023 audiogram completed [email or web address] Information n ot available 12/04/2023 16:08:21 10/14/2019 imaging/diagno stic result completed Information not available 01/08/2024 03:23:22 11/03/2019 imaging/diagno stic result completed Information not available 01/08/2024 03:23:54 11/03/2019 imaging/diagno stic result completed Information not available 01/08/2024 03:23:55 Procedure Notes None recorded. Medical Equipment None Reported. Allergies Allergen ID Allergen Name Allergen Category Reaction Reaction Severity Criticality Documentation Date Start Date Code Code System Note Provider Name and Address Organization Details Recorded Time 530417 wheat gluten extract food Not available Not available Not available 12/02/2023 35130 81 RxNorm Ellen denny [place] - [facility] 4 09:56:15 Medications Name Sig Start Date Stop Date Status Note LastModified by Organization Details LastModified Time amoxicill in 500 mg capsule TAKE 4 CAPSULES 1 HOUR PRIOIR TO DENTAL APPOINTM ENT 12/01 completed Not Available Not Available Not Available latanopro st 0.005 % eye drops INSTILL 1 DROP INTO BOTH EYES IN THE EVENING active Not Available Not Available No t Available Acetamino phen Extra Strength 500 mg tablet 12/01 completed Medicati on ID: [id number] B rand Name: Acetamin ophen Extra Strength Send Method: E-Prescr ibed Sub s Allowed: subs OK Medic ationGen ericName : Acetamin ophen Extra Strength Medicat ion ID: [id number] B rand Name: Acetamin ophen Extra Strength Send Method: E-Prescr ibed Sub s Allowed: subs OK Medic ationGen ericName : Acetamin ophen Extra Strength Not Available Not Available Not Available fexofenad ine 60 mg tablet 12/01 completed Medicati on ID: [id number] B rand Name: fexofena dine Sen d Method: E-Prescr ibed Sub s Allowed: subs OK Medic ationGen ericName : fexofena dine Med ication ID: [id number] B rand Name: fexofena dine Sen d Method: E-Prescr ibed Sub s Allowed: subs OK Medic ationGen ericName : fexofena dine Not Available Not Available Not Available oxybutyni n chloride ER 10 mg tablet,ex tended release 24 hr TAKE 1 TABLET BY MOUTH EVERY DAY active Not Available Not Available No t Available estradiol 0.05 mg/24 hr weekly transderm al patch PLACE 1 PATCH ONTO CLEAN, DRY SKIN ONCE A WEEK NEEDS APPOINTM ENT active Not Available Not Available No t Available valacyclo vir 500 mg tablet TAKE 1 TABLET BY MOUTH TWICE A DAY active Not Available Not Available No t Available ondansetr on 8 mg disintegr ating tablet DISSOLVE 1 TABLET ON TONGUE EVERY 8 HOURS 12/01 completed Not Available Not Available Not Available monteluka st 10 mg tablet TAKE 1 TABLET BY MOUTH EVERY DAY active Not Available Not Available No t Available albuterol sulfate HFA 90 mcg/actua tion aerosol inhaler INHALE 2 PUFF INHALED EVERY 6 HOURS NEEDED FOR BRONCHOS PASM 12/01 completed Not Available Not Available Not Available timolol maleate 0.5 % eye drops INSTILL 1 DROP INTO BOTH EYES EVERY 12 HOURS 2023 active Not Available Not Available Not Avai lable dorzolami de 2 % eye drops INSTILL 1 DROP INTO BOTH EYES EVERY 12 HOURS active Not Available Not Available No t Available Laxative (bisacody l) 5 mg tablet,de layed release TAKE 2 TABLETS BY MOUTH DIRECTED FOR 1 DAY NEEDED 12/01 completed Not Available Not Available Not Available calcium 250 mg (as citrate) tablet 12/01 completed Medicati on ID: [id number] B rand Name: calcium citrate Send Method: E-Prescr ibed Sub s Allowed: subs OK Medic ationGen ericName : calcium citrate Medicati on ID: [id number] B rand Name: calcium citrate Send Method: E-Prescr ibed Sub s Allowed: subs OK Medic ationGen ericName : calcium citrate Not Available Not Available Not Available GaviLyte- G 236 gram-22.7 4 gram-6.74 gram-5.86 gram oral solution TAKE 4000ML BY MOUTH DIRECTED OVER 2 DAYS 12/01 completed Not Available Not Available Not Available Vitamin D3 50 mcg (2,000 unit) capsule active Medicati on ID: [id number] B rand Name: Vitamin D3 Send Method: E-Prescr ibed Sub s Allowed: subs OK Medic ationGen ericName : Vitamin D3 Not Available Not Available Not Available ICaps AREDS 4,296 mcg-226 mg-90 mg capsule active Medicati on ID: [id number] B rand Name: ICaps AREDS Se nd Method: E-Prescr ibed Sub s Allowed: subs OK Medic ationGen ericName : ICaps AREDS Not Available Not Available Not Available Paxlovid 300 mg (150 mg x 2)-100 mg tablets in a dose pack TAKE 3 TABLETS BY MOUTH TWICE A DAY FOR 5 DAYS 12/01 completed Not Available Not Available Not Available Vitals Date Recorded Body height Body weight Provider Name and Address Organization Details Last Updated DateTime 12/02/2023 157.48 cm 20967.86 g Ellen Estrada [place] [facility] 12/02/2023 10:32:48 Social History None recorded. Functional Status None recorded. Mental Status None recorded. Family History Nothing Reported. Medical History Condition Response Arthritis Y Glaucoma Y Asthma Y Gynecological HistoryNo gynecological history recorded. Obstetrics History GPAL:G 0 P 0 0 0 0 Past Encounters Encounter ID Performer Location Encounter Start Date Encounter Closed Date Diagnosis/Indication Diagnosis SNOMED-CT Code Diagnosis ICD10 Code Diagnosis Note [id number] RITCHIE GONZALEZ MD [facility] [address] [address] 12/02/2023 09:00:37 12/02/2023 10:47:34 Sensorineural hearing loss of bilateral ears 173745913 H90.3 Audiologic al evaluation results: 12/02/2023 Right ear: {{Normal* Mild Moder ate Modera tely-sever e Severe P rofound}} {{hearing sloping to a mild* slop ing to a moderate s loping to moderately severe slo ping to severe slo ping to profound f lat high frequency low frequency mid frequency cookie bite stewart curve}} {{with sen sorineural hearing loss with condu ctive hearing loss with mixed hearing loss with senso rineural hearing loss above 6K Hz with#}} {{excellen t* good fa ir poor no measurable }} word recognitio n. Left ear: {{Normal* Mild Moder ate Modera tely-sever e Severe P rofound}} {{hearing sloping to a mild* slop ing to a moderate s loping to moderately severe slo ping to severe slo ping to profound f lat high frequency low frequency mid frequency cookie bite stewart curve}} {{with sen sorineural hearing loss with condu ctive hearing loss with mixed hearing loss with senso rineural hearing loss above 6K Hz with#}} {{excellen t* good fa ir poor no measurable }} word recognitio n. Tympanomet ry: Right Ear:{{Type A* Type As Type Ad Type C Type C, shallow & rounded Ty pe B Type B with large volume Cou ld not maintain a hermetic seal}} Left Ear:{{Type A* Type As Type Ad Type C Type C, shallow & rounded Ty pe B Type B with large volume Cou ld not maintain a hermetic seal}} Dizziness and giddiness 832793389 R42 Labyrinthitis 66299406 H 83.09 Benign par oxysmal positional vertigo 941558154 H81.10 Health Concerns Section Related Observation LastModified by Organization Detai ls LastModified Time None Recorded Concern Status LastModified by Organization Details LastModified Time None Recorded Advance Directives Directive None Recorded Payers Encounter Date Sequence Insurance Name Policy Number Policy Brown Covered Member ID Brown Member ID Guarantor Name 12/02/2023 1 [facility] [place] [id number] Kendra Santiago [id number] Kendra Santiago Notes Date Note Type Note Provider Name and Address Organization Details Recorded Time 12/02/2023 text/html 72-year-old megan lucas who I evaluated back in 2019 for episodes of vertigo in June, July and February 2019. I sent her for MRI scan of the brain and internal auditory canals which was negative. Patient was having significant problems with her sleep at that time, and I recommended she speak with her primary care physician about sleep study or sleep medicine evaluation. Patient reports that she has not been having any troubles with her sleep since we last talked in 2019. Patient reports recurrence of vertigo attack again in May 2023. She woke up with significant spinning, nausea and vomiting. Symptoms persisted for about 4 to 5 days. She was seen at urgent care and given Zofran and referral to physical therapy. She went to vestibular rehab in [facility] where she underwent Juventino maneuvers as well as vestibular rehabilitation therapy. She reports having had some inexplicable falls prior to the rehab which has not recurred since the rehabilitation. She is dealing with macular degeneration, as well as glaucoma which is changing her vision. RITCHIE GONZALEZ MD [address] [place] [address], [phone], [facility] - [facility] 12/02/2023 10:50:04 OBGyn Episode No OBEpisode recorded.
[2024-08-27 13:16] LABS: MANUAL DIFF FLAG NO
[2024-08-27 13:29] LABS: Basophils Percent Auto 0.3 % (0-2); Eosinophils Absolute Auto 0.1 X10*3/uL (0.0-0.4); Eosinophils Percent Auto 1.8 % (0-4); Hematocrit 39.3 % (37.0-47.0); Hemoglobin 13.2 g/dl (12.0-16.0); Imm Gran Abs Auto 0.01 X10*3/uL (0.00-0.03); Imm Gran Pct Auto 0.1 % (0.0-0.4); Lymphocytes Absolute Auto 0.9 X10*3/uL (1.2-4.9); Lymphocytes Percent Auto 13.4 % (20-40); Mean Corpuscular HGB Conc 33.6 g/dl (31.0-35.0); Mean Corpuscular Hemoglobin 31.8 pg (27.0-33.0); Mean Corpuscular Volume 94.7 fL (80.0-98.0); Mean Platelet Volume 9.7 fL (9.4-12.3); Monocytes Absolute Auto 0.6 X10*3/uL (0.1-1.2); Monocytes Percent Auto 8.6 % (2-11); Neutrophils Absolute Auto 5.1 x10*3/uL (2.0-8.3); Neutrophils Percent Auto 75.8 % (45-73); Platelet Count 267 X10*3/uL (160-400); Red Blood Count 4.15 X10*6/uL (4.20-5.50); Red Cell Distribution Width 12.8 % (11.0-16.0); White Blood Count 6.7 X10*3/uL (4.8-10.8)
[2024-08-27 13:47] LABS: Alanine Aminotransferase 22 U/L (0-31); Albumin Level 3.7 g/dL (3.5-5.0); Alkaline Phosphatase 51 U/L (39-117); Anion Gap 10 (12-20); Aspartate Amino Transferase 31 U/L (5-31); Bilirubin Total 0.4 mg/dL (0.0-1.0); Blood Urea Nitrogen 13 mg/dL (9-16); Calcium 8.2 mg/dL (8.4-10.2); Carbon Dioxide 25 mmol/L (22-29); Chloride 110 mmol/L (96-108); Estimated Glomerular Filt Rate > 60; Glucose Random 119 mg/dL (60-115); Potassium 3.6 mmol/L (3.3-5.1); Sodium 141 mmol/L (135-145); Total Protein 6.1 g/dL (6.5-8.0)
== END 2024-08-27 10:53 | disposition home or self-care (01) ==
LOC: HO.HMGCLDS 10:52
PROVIDERS: PCP Internal Medicine; Visit Provider Internal Medicine
DX: R10.32 Left lower quadrant pain (principal); K57.92 Diverticulitis of intestine, part unspecified, without perforation or abscess without bleeding
CPT/HCPCS: 36415; 80053; 85025; 96127; 99212

== ENCOUNTER 2024-08-28 09:15 | Outpatient (REF) | payer MEDICARE, SELFPAY ==
[2024-08-28 11:27] LABS: Appearance Urine Cloudy; Color Urine Dark Yellow; Glucose Urine UA Negative (Negative); Leukocyte Esterase Urine Large (3+) (Negative); Nitrite Urine Negative (Negative); PH 5.5 (5.0-9.0); Specific Gravity - Urine >= 1.030 (1.005-1.025); UMIC TRIGGER UA YES; Urine Blood Negative (Negative); Urine Ketones Trace mg/dL (Negative); Urine Protein 30 (1+) mg/dL (Neg-Trace)
[2024-08-28 11:47] LABS: Bacteria Urine 4+ (None Seen); Hyaline Casts Urine 0-2 /LPF (0-2); RBC Urine 0-2 /HPF (0-2)
== END 2024-08-28 09:16 | disposition home or self-care (01) ==
LOC: HO.HMGCLNP 09:15
PROVIDERS: PCP Internal Medicine; Visit Provider Internal Medicine
DX: K57.92 Diverticulitis of intestine, part unspecified, without perforation or abscess without bleeding (principal); R10.9 Unspecified abdominal pain
CPT/HCPCS: 81001

== ENCOUNTER 2024-09-28 06:25 | Outpatient (REF) | payer MEDICARE, SELFPAY ==
--- OUTSIDE RECORDS SUMMARY | 2024-09-28 06:28 | XMS_ITS | Data Portability ---
Author Organization [facility], [facility] Address [address] [place] [address] Care Team Providers Care Account Support Manager Name Role Phone [facility] Earrings Fabricator [facility] (DARSHANA REBOLLEDO) Orthopedic Surgeon [facility] Dermatolo gist [facility] [employer] Teacher [phone] NELLY NASCIMENTO [employer] Teacher Unavailable Assessment Encounter Date Assessment Date Assessment [...] recorded. Lab lipid panel, serum 2022 023 [facility], [address] [place] [address], [address], 3 15:42:19 CMP, serum or plasma 2022 023 [facility], [address] [place] [address], [address], 3 15:42:18 TSH, serum or plasma 2022 023 [facility], [address] [place] [address], [address], 3 11:31:47 [email or web address] [address] [place] [address], [address], 3 13:25:07 Referral gastroent erologist referral - eval for colo and EGD, known celiac. she prefers ebing done at [facility] 2022 023 MARLY Santillan MD, [address] [place] [address], [address], 3 15:19:37 Procedures colonosco py procedure (PROC) [email or web address] G[facility]enterol becca, [address] [place] [address], [address], 0 10:15:41 Surgeries None recorded. Imaging None recorded. Medication Orders oxybutyni n chloride ER 10 mg tablet,ex tended release 24 hr 2022 023 [facility]acy #[id number], [address] [facility] [place], [address], 3 08:17:13 estradiol 0.05 mg/24 hr weekly transderm al patch 2022 023 [id number] [address] [place], [address], 3 08:17:13 valacyclo vir 500 mg tablet 2022 023 [id number] [address] [place], [address], 3 08:17:[address] 10 mg tablet 2022 023 [id number] [address] [place], [address], 3 08:17:13 estradiol 0.05 mg/24 hr weekly transderm al patch 2019 020 [facility] #[id number], [address] [place], [address], 0 08:26:28 oxybutyni n chloride ER 10 mg tablet,ex tended release 24 hr 2019 020 [id number] [address] [place], [address], 0 08:26:[address] 10 mg tablet 2019 020 [facility] #[id number], [address] [place], [address], 0 08:26:29 valacyclo vir 500 mg tablet 2019 020 [facility] #0693, [address] [place], [address], 0 08:26:28 ProAir HFA 90 mcg/actua tion aerosol inhaler 2019 020 [facility]-[id number] 232 [facility] #[id number], [address] [facility] [place], [address], 22:23:27 Patient TargetsNo targets recorded. Patient Instructions Encounter Date Encounter Id Patient Instructions Last Modified By Organization Details Last Modified Time 05/06/2019 [id number] well visit, wome n 50 to 65: care instructions [email or web address] Not available 05/06/2019 08:22:28 given card for Ellie of [facility] in case starting to feel overwhelmed with helping elderly parents in [place] ad her vision issues tfurcolo Not available 05/06/2019 08:27:49 05/08/2020 [id number] well visit, wome n 50 to 65: care instructions tfurcolo Not available 05/08/2020 08:15:01 08/17/2021 [id number] advance directives: care instructions tfurcolo Not available 08/17/2021 08:27:27 preventing falls : care instructions tfurcolo Not available 08/17/2021 08:27:27 hearing loss: care instructions tfurcolo Not available 08/17/2021 08:27:27 well visit, over 65: care instructions tfurcolo Not available 08/17/2021 08:27:27 well visit, wome n 50 to 65: care instructions tfurcolo Not available 08/17/2021 08:27:27 08/23/2022 [id number] well visit, wome n 50 to 65: care instructions tfurcolo Not available 08/23/2022 08:17:08 Reason for Referral Hunter 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 she prefers ebing done at [facility] Referring Physician: Mariela Cordero, Family Medicine, Encounter Date: 08/23/2022 Results Created Date Observation Date Name Description Value Unit Range Abnormal Flag Note LastModifiedBy Organization Detail LastModifiedTime 05/06/20 19 05/06/2019 CBC WBC 5.99 K/? ? ?L 3.98-1 0.04 Not Available [address], [place], [address], 05/06/2019 11:11:32 05/06/2005/06/2019 CBC RBC 4.04 M/? ? ?L 3.93-5 .22 Not Available [address], [address], 05/06/2019 11:11:32 05/06/2005/06/2019 CBC HGB 13.1 g/dL 11.2-1 5.7 Not Available [address], [address], 05/06/2019 11:11:32 05/06/2005/06/2019 CBC HCT 39.9 % 34.1-4 4.9 Not Available [address], [address], 05/06/2019 11:11:32 05/06/2005/06/2019 CBC MCV 98.8 fL 79.4-9 4.8 high Not Available [address], [address], 05/06/2019 11:11:32 05/06/2005/06/2019 CBC MCH 32.4 pg 25.6-3 2.2 high Not Available [address], [address], 05/06/2019 11:11:32 05/06/2005/06/2019 CBC MCHC 32.8 g/dL 32.2-3 5.5 Not Available [address], [address], 05/06/2019 11:11:32 05/06/2005/06/2019 CBC plt 343 K/? ? ?L 182-36 9 Not Available [address], [address], 05/06/2019 11:11:32 05/06/2005/06/2019 CBC MPV 9.7 fL 9.4-12 .3 Not Available [address], [address], 05/06/2019 11:11:32 05/06/2005/06/2019 CBC neut% 66.3 % 34.0-7 1.1 Not Available [address], [address], 05/06/2019 11:11:32 05/06/2005/06/2019 CBC neut# 3.97 1.56-6 .13 Not Available [address], [address], 05/06/2019 11:11:32 05/06/2005/06/2019 CBC lymph % 25.5 % 19.3-5 1.7 Not Available [address], [address], 05/06/2019 11:11:32 05/06/2005/06/2019 CBC lymph # 1.53 K/? ? ?L 1.18-3 .74 Not Available [address], [address], 05/06/2019 11:11:32 05/06/2005/06/2019 CBC mono% 5.3 % 4.7-12 .5 Not Available [address], [address], 05/06/2019 11:11:32 05/06/2005/06/2019 CBC mono# 0.32 0.24-0 .56 Not Available [address], [address], 05/06/2019 11:11:32 05/06/2005/06/2019 CBC eo% 2.0 % 0.7-5. 8 Not Available [address], [address], 05/06/2019 11:11:32 05/06/2005/06/2019 CBC eo# 0.12 0.04-0 .36 Not Available [address], [address], 05/06/2019 11:11:32 05/06/20 19 05/06/2019 CBC baso% 0.7 % 0.1-1. 2 Not Available [address], [address], 05/06/2019 11:11:32 05/06/20 19 05/06/2019 CBC baso# 0.04 0.00-0 .08 Not Available [address], [address], 05/06/2019 11:11:32 05/06/2005/06/2019 CBC RDW-CV 12.0 % 11.7-1 4.4 Not Available [address], [address], 05/06/2019 11:11:32 05/06/2005/06/2019 CBC Ig% 0.200 % 0.000- 1.500 Ig % >0.5 Indic ates possi ble Left Shift Not Available [address], [address], 05/06/2019 11:11:32 05/06/2005/06/2019 CBC Ig# 0.010 0.000- 0.093 Not Available [address], [address], 05/06/2019 11:11:32 05/06/2005/06/2019 CBC NRBC% 0.0 % 0.0-0. 2 Not Available [address], [address], 05/06/2019 11:11:32 05/06/2005/06/2019 CBC NRBC# 0.000 0.000- 0.012 Not Available [address], [address], 05/06/2019 11:11:32 05/06/2005/06/2019 CMP, serum or plasm a glucose 82 mg/dL 70-100 Not Available [address], [address], 05/06/2019 12:12:50 05/06/20 19 05/06/2019 CMP, serum or plasm a BUN 14 mg/dL 7-18 Not Available [address], [address], 05/06/2019 12:12:50 05/06/20 19 05/06/2019 CMP, serum or plasm a creatinine 0.6 mg/dL 0.8-1. 3 low Not Available [address], [address], 05/06/2019 12:12:50 05/06/2005/06/2019 CMP, serum or plasm a B/C 23.3 ratio Not Available [address], [address], 05/06/2019 12:12:50 05/06/2005/06/2019 CMP, serum or plasm a GFR -non 111.0 mL/mi n Recom natalie d GFR by the Natio nal Kidne y Found ation >60 mL/mi n/1.7 3m2 - Cira l <60 mL/mi n/1.7 3m2 - Chron ic Kidne y Disea se <15 mL/mi n/1.7 3m2 - Kidne y Failu re Not Available [address], [address], 05/06/2019 12:12:50 05/06/2005/06/2019 CMP, serum or plasm a GFR - if 127.7 mL/mi n For Afric an Ameri can patie nts: Resul ts Multi plied by 1.21 Not Available [address], [address], 05/06/2019 12:12:50 05/06/20 19 05/06/2019 CMP, serum or plasm a sodium 142 mmol/ L 136-14 5 Not Available [address], [address], 05/06/2019 12:12:50 12/05/06/2019 CMP, serum or plasm a potassium 4.1 mmol/ L 3.5-5. 1 Not Available [address], [address], 05/06/2019 12:12:50 05/06/2005/06/2019 CMP, serum or plasm a chloride 105 mmol/ L 96-107 Not Available [address], [address], 05/06/2019 12:12:50 05/06/2005/06/2019 CMP, serum or plasm a anion gap 6.5 5.0-15 .0 Not Available [address], [address], 05/06/2019 12:12:50 05/06/2005/06/2019 CMP, serum or plasm a CO2 31 mmol/ L 21-32 Not Available [address], [address], 05/06/2019 12:12:50 05/06/2005/06/2019 CMP, serum or plasm a calcium 8.7 mg/dL 8.5-10 .3 Not Available [address], [address], 05/06/2019 12:12:50 05/06/2005/06/2019 CMP, serum or plasm a total protein 6.6 g/dL 6.4-8. 2 Not Available [address], [address], 05/06/2019 12:12:50 05/06/2005/06/2019 CMP, serum or plasm a albumin 3.8 g/dL 3.4-5. 0 Not Available [address], [address], 05/06/2019 12:12:50 05/06/2005/06/2019 CMP, serum or plasm a globulin 2.8 g/dL Not Available [address], [address], 05/06/2019 12:12:50 05/06/20 19 05/06/2019 CMP, serum or plasm a A/G 1.4 ratio 0.8-2. 0 Not Available [address], [address], 05/06/2019 12:12:50 05/06/2005/06/2019 CMP, serum or plasm a total bilirubin 0.50 mg/dL 0.00-1 .00 Not Available [address], [address], 05/06/2019 12:12:50 05/06/2005/06/2019 CMP, serum or plasm a AST 19 U/L 0-37 Not Available [address], [address], 05/06/2019 12:12:50 05/06/20 19 05/06/2019 CMP, serum or plasm a ALT 27 U/L 6-63 Not Available [address], [address], 05/06/2019 12:12:50 05/06/2005/06/2019 CMP, serum or plasm a alk. phos. 46 U/L 50-136 low Not Available [address], [address], 05/06/2019 12:12:50 05/06/2005/06/2019 rena tin, serum or plasm a ferritin 56 NG/mL 15-200 Not Available [address], [address], 05/06/2019 13:49:18 05/06/2005/06/2019 vitam in D, 25-hy [...] er than 30 ng/mL . Not Available [address], [address], 05/06/2019 13:49:19 05/06/20 19 05/07/2019 lipid panel , serum cholesterol 170 mg/dL <200 mg/dl Lizzy able 200-2 39 mg/dl Borde rline High >240 mg/dl High Not Available [address], [address], 05/07/2019 14:46:42 05/06/20 19 05/07/2019 lipid panel , serum triglyceride s 70 mg/dL <150 mg/dL Cira l 150-1 99 mg/dL Borde rline High 200-4 99 mg/dL High >500 mg/dL Very High Not Available [address], [address], 05/07/2019 14:46:42 05/06/20 19 05/07/2019 lipid panel , serum direct HDL 56 mg/dL <40 mg/dl - Major Risk for CHD >60 mg/dl - Negat cristian Risk for CHD Not Available [address], [address], 05/07/2019 14:46:42 05/06/20 19 05/07/2019 LDL, calcu [...] r is not neces amanda. Not Available [facility] [address], [place], [address], 05/07/2019 14:46:44 05/06/2005/09/2019 tissu e trans gluta yoselyn e iga Ab, serum tissue transglutami nase Ab, IgA 4 U/mL high Value Inter preta tion ----- ----- ----- ---- <4 No Antib ian Detec eric > or = 4 Antib ian Detec eric Not Available [facility] [address], [address], 05/09/2019 17:40:18 05/06/2005/09/2019 iga, quant itati ve, serum immunoglobul in A 182 mg/dL 70-320 normal Not Available [facility] [address], [address], 05/09/2019 17:40:20 05/06/2005/09/2019 zinc, serum or plasm a zinc 114 mcg/d L 60-130 This test was devel oped and its kasia tical perfo rmanc e duncan cteri stics have been deter mined by [facility] [place]. It has not been clear ed or appro gudelia by the U.S. Food and Drug Admin istra tion. This assay has been valid ated pursu ant to the CLIA regul ation s and is used for clini justin purpo ses. Not Available [facility] [address], [place], [address], 05/09/2019 17:40:20 05/06/2005/09/2019 vitam in A (reti [...] Diagn aung Vivas [facility] ETTA. It has not been clear ed or appro gudelia by the U.S. Food and Drug Admin istra tion. This assay has been valid ated pursu ant to the CLIA regul ation s and is used for clini justin purpo ses. Not Available [facility] [address], [place], [address], 05/09/2019 17:40:21 05/06/20 19 05/10/2019 vitam in B12, serum vitamin B12 870 pg/mL 230-10 50 Not Available [address], [address], 05/10/2019 12:24:31 05/06/20 19 05/10/2019 folat e, serum folate >20 NG/mL 3-16 high > Not Available [address], [address], 05/10/2019 12:28:02 03/04/20 20 03/04/2020 SARS CoV 2 RNA (COVI D-19) , QL, client service professional-P CR, respi rator y speci men covid-19 source ELIF SANTOS AL SWAB (CHERRY DIPPER) Not Available [facility] [address] [place] [address], [address], 03/04/2020 12:22:07 03/04/20 20 03/04/2020 SARS CoV 2 RNA (COVI D-19) , QL, client service professional-P CR, respi rator y speci men covid testing status Sent to [facility] Not Available [facility] ([facility]) [address] [place], [address], 03/04/2020 12:22:07 03/04/20 20 03/04/2020 SARS CoV 2 RNA (COVI D-19) , QL, client service professional-P CR, respi rator y speci men symptomatic? 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 Not Available [facility] (Out[facility]) [address] [place], [address], 03/04/2020 21:57:09 09/22/19 23 09/22/2022 CBC (INCL UDES DIFF/ PLT) white blood cell count 7.6 thous and/u L 3.8-10 .8 normal Not Available [facility] [address], [place], [address], 09/22/2022 13:58:20 09/22/19 23 09/22/2022 CBC (INCL UDES DIFF/ PLT) red blood cell count 3.99 mary on/uL 3.80-5 .10 normal Not Available [facility] [address] Horacio B, [place], [address], 09/22/2022 13:58:20 09/22/19 23 09/22/2022 CBC (INCL UDES DIFF/ PLT) hemoglobin 13.2 g/dL 11.7-1 5.5 normal Not Available [facility] [address] [place]acio B, [place], [address], 09/22/2022 13:58:20 09/22/19 23 09/22/2022 CBC (INCL UDES DIFF/ PLT) hematocrit 39.0 % 35.0-4 5.0 normal Not Available [facility] [address] [place]acio B, [place], [address], 09/22/2022 13:58:20 09/22/19 23 09/22/2022 CBC (INCL UDES DIFF/ PLT) MCV 97.7 fL 80.0-1 00.0 normal Not Available [facility] [address] [place]acio B, [place], [address], 09/22/2022 13:58:20 09/22/19 23 09/22/2022 CBC (INCL UDES DIFF/ PLT) MCH 33.1 pg 27.0-3 3.0 high Not Available [facility] [address] [place]acio B, [place], [address], 09/22/2022 13:58:20 09/22/19 23 09/22/2022 CBC (INCL UDES DIFF/ PLT) MCHC 33.8 g/dL 32.0-3 6.0 normal Not Available [facility] [address], [place], [address], 09/22/2022 13:58:20 09/22/19 23 09/22/2022 CBC (INCL UDES DIFF/ PLT) RDW 12.1 % 11.0-1 5.0 normal Not Available [facility] [address], [place], [address], 09/22/2022 13:58:20 09/22/19 23 09/22/2022 CBC (INCL UDES DIFF/ PLT) platelet count 320 thous and/u L 140-40 0 normal Not Available [facility] [address], [place], [address], 09/22/2022 13:58:20 09/22/19 23 09/22/2022 CBC (INCL UDES DIFF/ PLT) MPV 10.3 fL 7.5-12 .5 normal Not Available [facility] [address], [place], [address], 09/22/2022 13:58:20 09/22/19 23 09/22/2022 CBC (INCL UDES DIFF/ PLT) absolute neutrophils 5259 cells /uL 1500-7 800 normal Not Available [facility] [address], [place], [address], 09/22/2022 13:58:20 09/22/19 23 09/22/2022 CBC (INCL UDES DIFF/ PLT) absolute lymphocytes 1642 cells /uL 850-39 00 normal Not Available [facility] [address], [place], [address], 09/22/2022 13:58:20 09/22/19 23 09/22/2022 CBC (INCL UDES DIFF/ PLT) absolute monocytes 456 cells /uL 200-95 0 normal Not Available [facility] [address], [place], [address], 09/22/2022 13:58:20 09/22/19 23 09/22/2022 CBC (INCL UDES DIFF/ PLT) absolute eosinophils 182 cells /uL 15-500 normal Not Available [facility] [address], [place], [address], 09/22/2022 13:58:20 09/22/19 23 09/22/2022 CBC (INCL UDES DIFF/ PLT) absolute basophils 61 cells /uL 0-200 normal Not Available [facility] [address], [place], [address], 09/22/2022 13:58:20 09/22/19 23 09/22/2022 CBC (INCL UDES DIFF/ PLT) neutrophils 69.2 % normal Not Available [facility] [address], [place], [address], 09/22/2022 13:58:20 09/22/19 23 09/22/2022 CBC (INCL UDES DIFF/ PLT) lymphocytes 21.6 % normal Not Available [facility] [address], [place], [address], 09/22/2022 13:58:20 09/22/19 23 09/22/2022 CBC (INCL UDES DIFF/ PLT) monocytes 6.0 % normal Not Available [facility] [address], [place], [address], 09/22/2022 13:58:20 09/22/19 23 09/22/2022 CBC (INCL UDES DIFF/ PLT) eosinophils 2.4 % normal Not Available [facility] [address], [place], [address], 09/22/2022 13:58:20 09/22/19 23 09/22/2022 CBC (INCL UDES DIFF/ PLT) basophils 0.8 % normal Not Available [facility] [address], [address], 09/22/2022 13:58:20 09/22/19 23 09/23/2022 COMP. METAB OLIC PANEL glucose 79 mg/dL 70-100 Not Available [address], [address], 09/23/2022 15:42:18 09/22/19 23 09/23/2022 COMP. METAB OLIC PANEL BUN 12 mg/dL 7-18 Not Available [address], [address], 09/23/2022 15:42:18 09/22/19 23 09/23/2022 COMP. METAB OLIC PANEL creatinine 0.6 mg/dL 0.8-1. 3 low Not Available [address], [address], 09/23/2022 15:42:18 09/22/19 23 09/23/2022 COMP. METAB OLIC PANEL B/C 20.0 ratio Not Available [address], [address], 09/23/2022 15:42:18 09/22/19 23 09/23/2022 COMP. METAB [...] be used in pregn alaina. Not Available [address], [address], 09/23/2022 15:42:18 09/22/19 23 09/23/2022 COMP. METAB OLIC PANEL sodium 144 mmol/ L 136-14 5 Not Available [address], [address], 09/23/2022 15:42:18 09/22/19 23 09/23/2022 COMP. METAB OLIC PANEL potassium 4.7 mmol/ L 3.5-5. 1 Not Available [address], [address], 09/23/2022 15:42:18 09/22/19 23 09/23/2022 COMP. METAB OLIC PANEL chloride 105 mmol/ L 96-107 Not Available [address], [address], 09/23/2022 15:42:18 09/22/19 23 09/23/2022 COMP. METAB OLIC PANEL anion gap 9.1 5.0-15 .0 Not Available [address], [address], 09/23/2022 15:42:18 09/22/19 23 09/23/2022 COMP. METAB OLIC PANEL CO2 30 mmol/ L 21-32 Not Available [address], [address], 09/23/2022 15:42:18 09/22/19 23 09/23/2022 COMP. METAB OLIC PANEL calcium 8.9 mg/dL 8.5-10 .3 Not Available [address], [address], 09/23/2022 15:42:18 09/22/19 23 09/23/2022 COMP. METAB OLIC PANEL total protein 6.5 g/dL 6.4-8. 2 Not Available [address], [address], 09/23/2022 15:42:18 09/22/19 23 09/23/2022 COMP. METAB OLIC PANEL albumin 3.8 g/dL 3.4-5. 0 Not Available [address], [address], 09/23/2022 15:42:18 09/22/19 23 09/23/2022 COMP. METAB OLIC PANEL globulin 2.7 g/dL Not Available [address], [address], 09/23/2022 15:42:18 09/22/19 23 09/23/2022 COMP. METAB OLIC PANEL A/G 1.4 ratio 0.8-2. 0 Not Available [address], [address], 09/23/2022 15:42:18 09/22/19 23 09/23/2022 COMP. METAB OLIC PANEL total bilirubin 0.40 mg/dL 0.00-1 .00 Not Available [address], [address], 09/23/2022 15:42:18 09/22/19 23 09/23/2022 COMP. METAB OLIC PANEL AST 24 U/L 0-37 Not Available [address], [address], 09/23/2022 15:42:18 09/22/19 23 09/23/2022 COMP. METAB OLIC PANEL ALT 29 U/L 6-63 Not Available [address], [address], 09/23/2022 15:42:18 09/22/19 23 09/23/2022 COMP. METAB OLIC PANEL alk. phos. 57 U/L 50-136 Not Available [address] [place], [address], 09/23/2022 15:42:18 09/22/1909/23/2022 LIPID PANEL cholesterol 193 mg/dL <200 mg/dl Lizzy able 200-2 39 mg/dl Borde rline High >240 mg/dl High Not Available [address], [address], 09/23/2022 15:42:19 09/22/1909/23/2022 LIPID PANEL triglyceride s 52 mg/dL <150 mg/dL Cira l 150-1 99 mg/dL Borde rline High 200-4 99 mg/dL High >500 mg/dL Very High Not Available [address], [address], 09/23/2022 15:42:19 09/22/19 23 09/23/2022 LIPID PANEL direct HDL 60 mg/dL <40 mg/dl - Major Risk for CHD >60 mg/dl - Negat cristian Risk for CHD Not Available [address], [address], 09/23/2022 15:42:19 09/22/1909/23/2022 LDL - CALCU LATED [...] r is not necnadja amanda. Not Available [address], [address], 09/23/2022 15:42:20 09/22/19 23 09/24/2022 TSH TSH 0.94 uIU/m L 0.50-6 .00 The [employer]i can [employer] ge of Endoc rinol ogy and [facility] can Thyro id Assoc iatio n recom mend goal TSH value s marisol en 0.4-4 .0 mIU/m L. Not Available [address], [address], 09/24/2022 11:31:47 10/08/19 23 10/07/2022 CBC AND DIFFE RENTI AL WBC 6.79 K/uL 4.00-1 1.00 Not Available [facility] [address] [place] [address], [address], 10/07/2022 15:40:41 10/08/19 23 10/07/2022 CBC AND DIFFE RENTI AL RBC 4.04 M/uL 3.72-5 .30 Not Available [facility] [address] [place] [address], [address], 10/07/2022 15:40:41 10/08/19 23 10/07/2022 CBC AND DIFFE RENTI AL HGB 13.0 g/dL 11.4-1 5.9 Not Available [facility] [address] [place] [address], [address], 10/07/2022 15:40:41 10/08/19 23 10/07/2022 CBC AND DIFFE RENTI AL HCT 40.5 % 34.2-4 6.8 Not Available [facility] [address] [place] [address], [address], 10/07/2022 15:40:41 10/08/19 23 10/07/2022 CBC AND DIFFE RENTI AL plt 316 K/uL 140-43 0 Not Available [facility] [address] [place] [address], [address], 10/07/2022 15:40:41 10/08/19 23 10/07/2022 CBC AND DIFFE RENTI AL MCV 100.2 fL 78.0-9 7.0 high Not Available [facility] [address] [place], [address], 10/07/2022 15:40:41 10/08/19 23 10/07/2022 CBC AND DIFFE RENTI AL MCH 32.2 pg 25.0-3 3.0 Not Available [facility] (Outpatient) [address] [place], [id number], 10/07/2022 15:40:41 10/08/19 23 10/07/2022 CBC AND DIFFE RENTI AL MCHC 32.1 g/dL 32.0-3 6.0 Not Available [facility] (Outpatient) [address] [place] [address], [id number], 10/07/2022 15:40:41 10/08/19 23 10/07/2022 CBC AND DIFFE RENTI AL RDW 12.3 % 11.0-1 6.0 Not Available [facility] (Outpatient) [address] [place], [id number], 10/07/2022 15:40:41 10/08/19 23 10/07/2022 CBC AND DIFFE RENTI AL MPV 10.0 fL 8.4-12 .8 Not Available [facility] (Outpatient) [address] [place], [id number], 10/07/2022 15:40:41 10/08/19 23 10/07/2022 CBC AND DIFFE RENTI AL diff method Auto Not Available [facility] (Outpatient) [address] [place], [id number], 10/07/2022 15:40:41 10/08/19 23 10/07/2022 CBC AND DIFFE RENTI AL neuts 66.8 % 43.0-7 5.0 Not Available [facility] (Outpatient) [address] [place], [id number], 10/07/2022 15:40:41 10/08/19 23 10/07/2022 CBC AND DIFFE RENTI AL lymphs 25.2 % 18.2-4 7.4 Not Available [facility] (Outpatient) [address] [place], [id number], 10/07/2022 15:40:41 10/08/19 23 10/07/2022 CBC AND DIFFE RENTI AL monos 4.6 % 4.00-1 1.00 Not Available [facility] (Outpatient) [address] [place], [address], 10/07/2022 15:40:41 10/08/19 23 10/07/2022 CBC AND DIFFE RENTI AL eos 2.4 % 0.0-8. 0 Not Available [facility] (Outpatient) [address] [place], [address], 10/07/2022 15:40:41 10/08/19 23 10/07/2022 CBC AND DIFFE RENTI AL basos 0.9 % 0.0-2. 0 Not Available [facility] (Outpatient) [address] [place] [address], [address], 10/07/2022 15:40:41 10/08/19 23 10/07/2022 CBC AND DIFFE RENTI AL granulocytes , immature (%) 0.1 % 0.0-0. 9 Not Available [facility] (Outpatient) [address] [place] [address], [address], 10/07/2022 15:40:41 10/08/19 23 10/07/2022 CBC AND DIFFE RENTI AL absolute neuts 4.54 K/uL 1.80-7 .70 Not Available [facility] (Outpatient) [address] [place] [address], [address], 10/07/2022 15:40:41 10/08/19 23 10/07/2022 CBC AND DIFFE RENTI AL absolute lymphs 1.71 K/uL 1.00-3 .10 Not Available [facility] (Outpatient) [address] [place], [address], 10/07/2022 15:40:41 10/08/19 23 10/07/2022 CBC AND DIFFE RENTI AL absolute monos 0.31 K/uL 0.20-0 .80 Not Available [facility] (Outpatient) [address] [place], [address], 10/07/2022 15:40:41 10/08/19 23 10/07/2022 CBC AND DIFFE RENTI AL absolute eos 0.16 K/uL 0.00-0 .80 Not Available [facility] (Outpatient) [address] [place], [address], 10/07/2022 15:40:41 10/08/19 23 10/07/2022 CBC AND DIFFE RENTI AL absolute basos 0.06 K/uL 0.00-0 .09 Not Available [facility] (Outpatient) [address] [place], [address], 10/07/2022 15:40:41 10/08/19 23 10/07/2022 CBC AND DIFFE RENTI AL granulocytes , immature 0.01 K/uL 0.00-0 .05 Not Available [facility] (Outpatient) [address] [place], [address], 10/07/2022 15:40:41 10/08/19 23 10/07/2022 PT-IN R PT 11.3 sec 10.2-1 2.9 Not Available [facility] (Outpatient) [address] [place], [address], 10/07/2022 16:02:11 10/08/19 23 10/07/2022 PT-IN R INR 1.0 0.9-1. 1 Thera peuti c range for oral Vitam in K antag onist s: 2.0-3 .5 Not Available [facility] (Outpatient) [address] [place], [address], 10/07/2022 16:02:11 10/08/19 23 10/07/2022 LIPID PANEL [...] lincoln barger, sex and age. Not Available [facility] (Outpatient) [address] [place], [address], 10/07/2022 16:24:34 10/08/19 23 10/07/2022 LIPID PANEL cholesterol 209 mg/dL 0-240 Not Available [facility] (Outpatient) [address] [place], [address], 10/07/2022 16:24:34 10/08/19 23 10/07/2022 LIPID PANEL triglyceride s 139 mg/dL 30-160 Not Available [facility] (Outpatient) [address] [place], [address], 10/07/2022 16:24:34 10/08/19 23 10/07/2022 LIPID PANEL LDL 121 mg/dL 50-129 LDL level s in terms of risk for coron gabriel heart disea se: <100 mg/dL : Optim al 100-1 29 mg/dL : Near or above optim al 130-1 59 mg/dL : Volodymyr miller high 160-1 89 mg/dL : High >190 mg/dL : Very High Not Available [facility] (Outpatient) [address] [place], [address], 10/07/2022 16:24:34 10/08/19 23 10/07/2022 LIPID PANEL cardiac risk ratio 3.5 3.3-4. 4 Not Available [facility] (Outpatient) [address] [place], [address], 10/07/2022 16:24:34 10/08/19 23 10/07/2022 IMMUN OGLOB ULIN A IgA 192 mg/dL 70-400 Not Available [facility] (Outpatient) [address] [place], [address], 10/07/2022 16:35:12 10/08/19 23 10/07/2022 COMPR EHENS CRISTIAN METAB OLIC PANEL sodium 140 mmol/ L 133-14 6 Not Available [facility] (Outpatient) [address] [place], [address], 10/07/2022 16:35:15 10/08/19 23 10/07/2022 COMPR EHENS CRISTIAN METAB OLIC PANEL potassium 4.2 mmol/ L 3.3-5. 1 Not Available [facility] (Outpatient) [address] [place], [address], 10/07/2022 16:35:15 10/08/19 23 10/07/2022 COMPR EHENS CRISTIAN METAB OLIC PANEL chloride 103 mmol/ L 96-108 Not Available [facility] (Outpatient) [address] [place], [address], 10/07/2022 16:35:15 10/08/19 23 10/07/2022 COMPR EHENS CRISTIAN METAB OLIC PANEL CO2 27 mmol/ L 21-35 Not Available [facility] (Outpatient) [address] [place], [address], 10/07/2022 16:35:15 10/08/19 23 10/07/2022 COMPR EHENS CRISTIAN METAB OLIC PANEL BUN 17 mg/dL 6-19 Not Available [facility] (Outpatient) [address] [place], [address], 10/07/2022 16:35:15 10/08/19 23 10/07/2022 COMPR EHENS CRISTIAN METAB OLIC PANEL creatinine 0.50 mg/dL 0.5-1. 5 Not Available [facility] (Outpatient) [address] [place], [address], 10/07/2022 16:35:15 10/08/19 23 10/07/2022 COMPR EHENS CRISTIAN METAB OLIC PANEL glucose 87 mg/dL 70-99 Not Available [facility] (Outpatient) [address] [place], [address], 10/07/2022 16:35:15 10/08/19 23 10/07/2022 COMPR EHENS CRISTIAN METAB OLIC PANEL albumin 4.2 g/dL 3.9-4. 8 Not Available [facility] (Outpatient) [address] [place], [address], 10/07/2022 16:35:15 10/08/19 23 10/07/2022 COMPR EHENS CRISTIAN METAB OLIC PANEL total protein 6.9 g/dL 6.5-8. 0 Not Available [facility] (Outpatient) [address] [place], [address], 10/07/2022 16:35:15 10/08/19 23 10/07/2022 COMPR EHENS CRISTIAN METAB OLIC PANEL calcium 10.0 mg/dL 8.4-10 .3 Not Available [facility] (Outpatient) [address] [place], [address], 10/07/2022 16:35:15 10/08/19 23 10/07/2022 COMPR EHENS CRISTIAN METAB OLIC PANEL alkaline phosphatase 63 U/L 39-117 Not Available [facility] (Outpatient) [address] [place], [address], 10/07/2022 16:35:15 10/08/19 23 10/07/2022 COMPR EHENS CRISTIAN METAB OLIC PANEL total bilirubin 0.3 mg/dL 0.0-1. 2 Not Available [facility] (Outpatient) [address] [place], [address], 10/07/2022 16:35:15 10/08/19 23 10/07/2022 COMPR EHENS CRISTIAN METAB OLIC PANEL AST 27 U/L 0-37 Not Available [facility] (Outpatient) [address] [place], [address], 10/07/2022 16:35:15 10/08/19 23 10/07/2022 COMPR EHENS CRISTIAN METAB OLIC PANEL ALT 19 U/L 0-40 Not Available [facility] (Outpatient) [address] [place], [address], 10/07/2022 16:35:15 10/08/19 23 10/07/2022 COMPR EHENS CRISITAN METAB OLIC PANEL globulin 2.7 g/dL 1-4.8 Not Available [facility] (Outpatient) [address] [place], [address], 10/07/2022 16:35:15 10/08/19 23 10/07/2022 COMPR EHENS CRISTIAN METAB OLIC PANEL eGFR 100 mL/mi n/1.7 3m2 >59 Estim ated glome rular filtr ation rate calcu lated using the CKD-E PI refit equat ion. Not Available [facility] (Outpatient) [address] [place], [address], 10/07/2022 16:35:15 10/08/19 23 10/07/2022 COMPR EHENS CRISTIAN METAB OLIC PANEL anion gap 14 mmol/ L 10-20 Not Available [facility] (Outpatient) [address] [place], [address], 10/07/2022 16:35:15 10/08/19 23 10/07/2022 C-KODAK CTIVE PROTE IN C reactive protein <3.0 mg/L 0.0-4. 0 Not Available [facility] (Outpatient) [address] [place], [address], 10/07/2022 16:35:16 10/08/19 23 10/07/2022 RENA TIN ferritin 66 ug/L 13-150 Not Available [facility] (Outpatient) [address] [place], [address], 10/07/2022 16:35:18 10/08/19 23 10/07/2022 IRON AND IRON HOLLIS NG CAPAC ITY iron 93 ug/dL 30-160 Not Available [facility] (Outpatient) [address] [place], [address], 10/07/2022 16:35:19 10/08/19 23 10/07/2022 IRON AND IRON HOLLIS NG CAPAC ITY iron binding capacity 319 ug/dL 228-42 8 Not Available [facility] (Outpatient) [address] [place], [address], 10/07/2022 16:35:19 10/08/19 23 10/07/2022 IRON AND IRON HOLLIS NG CAPAC ITY transferrin saturat. 29 % 15-50 Not Available [facility] (Outpatient) [address] [place], [address], 10/07/2022 16:35:19 10/08/19 23 10/07/2022 TSH TSH 1.58 uIU/m L 0.27-4 .20 Not Available [facility] (Outpatient) [address] [place], [address], 10/07/2022 16:35:20 10/08/19 23 10/07/2022 VITAM IN B12 vitamin B12 1505 pg/mL 232-12 45 high Not Available [facility] (Outpatient) [address] [place], [address], 10/07/2022 21:28:57 10/08/19 23 10/07/2022 FOLAT E folic acid >20.0 NG/mL 4.2-19 .9 high Not Available [facility] (Outpatient) [address] [place], [address], 10/07/2022 21:28:58 10/08/19 23 10/07/2022 25-OH VITAM IN D 25 oh vit D (total) 73 NG/mL 30-60 high Not Available [facility] (Outpatient) [address] [place], [address], 10/07/2022 21:28:59 10/08/19 23 10/09/2022 ANTIN UCLEA R ANTIB IAN (DARRYL) DARRYL screen on hep 2 Negati ve negati ve Not Available [facility] (Outpatient) [address] [place], [address], 10/09/2022 10:58:56 10/08/19 23 10/09/2022 INTRI NSIC FACTO R BLOCK ING ANTIB ODIES intr factr block Ab Negati ve negati ve Not Available [facility] (Outpatient) [address] [place], [address], 10/09/2022 22:06:48 10/08/19 23 10/09/2022 INTRI NSIC [...] ng may be indic ated. Not Available [facility] (Outpatient) [address] [place], [address], 10/09/2022 22:06:48 10/08/19 23 10/09/2022 TISSU E TRANS GLUTA YOSELYN E IGA ttg IgA antibody 3.8 U/mL <4.0 (negat cristian) Not Available [facility] (Outpatient) [address] [place], [address], 10/09/2022 22:06:49 10/08/19 23 10/10/2022 COPPE R, [...] and Drug Admin istra tion. Not Available [facility] (Outpatient) [address] [place], [address], 10/10/2022 11:20:17 10/08/1910/10/2022 ZINC zinc, S 116 mcg/d L 60-106 high (NOTE ) ----- ----- ----- ----A DDITI ONAL INFOR MATIO N---- ----- ----- ----- This test was karlosel oped and its perfo rmanc e duncan cteri stics deter mined by [facility] in a rosmery r consi stent with CLIA requi remen ts. This test has not been clear ed or appro gudelia by the U.S. Food and Drug Admin istra tion. Not Available [facility] (Outpatient) [address] [place], [address], 10/10/2022 11:20:19 10/08/19 23 10/11/2022 VITAM IN A vitamin A 75.1 mcg/d L 32.5-7 8.0 (NOTE ) ----- ----- ----- ----A DDITI ONAL INFOR MATIO N---- ----- ----- ----- This test was devel oped and its perfo rmanc e duncan cteri stics deter mined by [facility] in a rosmery r consi stent with CLIA requi remen ts. This test has not been clear ed or appro gudelia by the U.S. Food and Drug Admin istra tion. Not Available [facility] (Outpatient) [address] [place], [address], 10/11/2022 16:52:59 10/08/19 23 10/11/2022 METHY LMALO PROMISE ACID, SERUM methylmaloni c acid 0.16 nmol/ mL <=0.40 (NOTE ) ----- ----- ----- ----A DDITI ONAL INFOR MATIO N---- ----- ----- ----- This test was devel oped and its perfo rmanc e duncan cteri stics deter mined by [facility] in a rosmery r consi stent with CLIA requi remen ts. This test has not been clear ed or appro gudelia by the U.S. Food and Drug Admin istra tion. Not Available [facility] (Outpatient) [address] [place], [address], 10/11/2022 22:35:33 10/08/19 23 10/11/2022 PARIE SHEKHAR CELL ANTIB IAN parietal cell Ab,IgG <10.0 U <=20.0 (negat cristian) Not Available [facility] (Outpatient) [address] [place], [address], 10/11/2022 22:35:42 01/11/20 23 01/16/2023 ANATO JUAN M PATHO LOGY path report [facility] [address] [facility] [place] [address] Lab Direc tor: Anamaria naranjo MD Surgi [...] [address] 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 Largel [...] FURCOL O MARIELA L FURCOL O MARLY [facility] [address] [place] [address], [address], 12/20/2019 17:30:48 12/20/19 20 12/20/2019 MAMMO , scree dionne No observ ation record ed. 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 Largel [...] FURCOL O MARIELA L FURCOL O tfurcolo [facility] [address] [facility], [place], [address], 12/20/2019 10:28:48 12/29/1912/28/2020 MAMMO , scree dionne, [...] L FURCOL O MARIELA L FURCOL O [facility] [address] [place] [address], [address], 12/28/2020 12:18:42 12/29/19 21 12/28/2020 MAMMO , scree dionne No observ ation record ed. [facility] [address] [place] [address], [address], 12/28/2020 12:18:43 01/02/20 22 01/01/2022 MAMMO , [...] L FURCOL O MARIELA L FURCOL O [facility] [address] [place] [address], [address], 01/17/2022 17:02:38 01/02/20 22 01/01/2022 MAMMO , scree dionne No observ ation record ed. [facility] [address] [place] [address], [address], 01/17/2022 17:02:39 05/31/19 23 05/14/2022 bone densi ty No observ ation record ed. [facility] [address], [address], 06/04/2022 04:28:15 05/31/19 23 05/14/2022 DEXA No observ ation record ed. [facility] [address], [address], 06/03/2022 11:22:43 05/31/19 23 05/14/2022 bone densi ty No observ ation record ed. [facility] [address], [address], 06/03/2022 11:22:44 05/31/19 23 05/14/2022 bone densi ty No observ ation record ed. [facility] [address], [address], 06/03/2022 11:22:44 01/13/20 23 05/14/2022 DEXA No observ ation record ed. [facility] [address], [address], 06/03/2022 11:22:45 05/31/19 23 05/14/2022 bone densi ty No observ ation record ed. [address], [address], 06/03/2022 11:22:45 05/31/19 23 05/14/2022 bone densi ty No observ ation record ed. [address], [address], 06/03/2022 11:22:45 05/31/19 23 05/14/2022 DEXA No observ ation record ed. [address], [address], 06/03/2022 11:22:46 06/01/19 23 05/14/2022 bone densi ty No observ ation record ed. [address], [address], 06/03/2022 11:22:46 01/04/20 23 01/03/2023 MAMMO , [...] L FURCOL O MARIELA L FURCOL O [address] [facility] [address] [place] [address], [address], 01/03/2023 16:50:27 01/04/20 23 01/03/2023 MAMMO , scree dionne No observ ation record ed. [address] [facility] [address] [place] [address], [address], 01/03/2023 16:50:28 Result Notes None recorded. Problems Name Problem SNOMED Code Status Onset Date Resolution Date Notes Provider Name and Address Organization Details Recorded Time Asthma 215596931 Completed 12/26/2014 Mariela Cordero D.O. [address] [place] [address], [phone] , [facility] 5 09:35:05 Osteopenia 670152830 Active Not Available [facility] 3 22:23:29 Osteoarthr itis 188050840 Active Not Available [facility] 3 22:23:29 Benign paroxysmal positional vertigo 575635856 Active 2018 Not Available [facility] 3 22:23:29 Degenerati ve disorder of macula 301788940 Active 2018 Not Available [facility] 3 22:23:29 Nonexudati ve age-relate d macular degenerati on 032740416 Active 2018 dry Not Available [facility] 3 22:23:29 Carpal tunnel syndrome 17411528 Completed 200101/24/2015 Mariela Furcolo D.O. [address] [place], [address] , [facility] 5 09:35:05 Cough 12636636 Completed 200704/07/2013 Mariela Furcolo D.O. [address] [place], [address] , [facility] 5 09:35:06 Precordial pain 67785553 Completed 200304/07/2013 Mariela Furcolo D.O. [address] [place], [address] , [facility] 5 09:35:06 Extrinsic asthma with asthma attack Completed 200412/26/2014 Mariela Furcolo D.O. [address] [place], [address] , [facility] 5 09:35:05 Celiac disease 113214709 Active Not Available [facility] 3 22:23:29 Tendinitis 29738427 Completed 200712/26/2014 Mariela Furcolo D.O. [address] [place], [address] , [facility] 5 09:35:05 Acute cystitis 95233631 Completed 200404/07/2013 Mariela Furcolo D.O. [address] [place], [address] , [facility] 5 09:35:05 Epistaxis Completed 04/07/2013 Mariela Furcolo D.O. [address] [place], [address] , [facility] 5 09:35:06 Allergic rhinitis 50396582 Active Not Available [facility] 3 22:23:29 Allergic asthma without status asthmaticu s 40994707 Completed 200512/26/2014 Mariela Furcolo D.O. [address] [place], [address] , [facility] 5 09:35:05 Hammer toe 275844579 Completed 200712/26/2014 Mariela Cordero D.O. [address] [place], [address] , [facility] 5 09:35:05 Finding by method 985544135 Completed 200704/07/2013 Mariela Marciacolo D.O. [address] [place], [address] , [facility] 5 09:35:06 Congenital valgus deformity of foot 10907585 Completed 200712/26/2014 Mariela Yamilexlo D.O. [address] [place], [address] , [facility] 5 09:35:06 Acute stress disorder 00603199 Completed 200404/07/2013 Mariela Yamilexlo D.O. [address] [place], [address] , [facility] 5 09:35:05 Common cold 06710905 Completed 200404/07/2013 Mariela Gil D.O. [address] [place], [address] , [facility] 5 09:35:05 Allergic rhinitis caused by pollen 16563756 Completed 200212/26/2014 Mariela Kaminskilo D.O. [address] [place], [address] , [facility] 5 09:35:05 Anemia 085074945 Completed 200112/26/2014 Marieal Marciacolo D.O. [address] [place], [address] , [facility] 5 09:35:05 Acute maxillary sinusitis 22675462 Completed 200204/07/2013 Mariela Marciacolo D.O. [address] [place], [address] , [facility] 5 09:35:05 Menopausal symptom 25755099 Completed 200104/07/2013 Mariela Marciacolo D.O. [address] [place], [address] , [facility] 5 09:35:05 Low back pain 222654491 Completed 200112/26/2014 Mariela Furcolo D.O. [address] [place], [address] , [facility] 5 09:35:05 Pityriasis rosea 05115546 Completed 200212/26/2014 Mariela Furcolo D.O. [address] [place], [address] , [facility] 5 09:35:05 Acute bronchitis 15321752 Completed 200704/07/2013 Mariela Furcolo D.O. [address] [place], [address] , [facility] 5 09:35:05 Malaise and fatigue 864987572 Completed 200104/07/2013 Mariela Kennedycolo D.O. [address] [place], [address] , [facility] 5 09:35:06 Notes:Some problems listed i n Documents: #[id number], #[id number], #[id number] could not be added to this patient's chart. Please review these documents and add these problems to the patient's chart manually as needed. Problem Notes None recorded. Procedures Surgical History Date Name Laterality Status Provider Name and Address Organization Details Recorded Time 08/18/19 Medicare Wellness Visit completed Angel Parr Randa [facility] 08/17/2021 07:38:52 08/18/19 22 Alcohol use screening completed Angel Parr Randa [facility] 08/17/2021 07:38:52 08/18/19 22 Cardiovascular disease risk reduction counseling completed Angel Parr [facility] ([place], [place]) 08/17/2021 07:38:52 09/07/19 21 Total hip arthroplasty completed Luisa Pedersen LPN [facility] 09/11/2020 08:25:46 05/08/20 20 Medicare Wellness Visit completed Angel Parr [facility] [place] 05/08/2020 07:48:35 05/08/20 prevention-cardiov ascular risk reduction counseling completed Angel Parr [facility] [place] 05/08/2020 07:48:35 05/08/20 prevention-annual alcohol misuse screening completed Angel Parr [facility] [place] 05/08/2020 07:48:35 02/25/20 Physical Activity Counselling completed Kendra Escamilla, PT [address] [place], [address], [facility] 02/24/2019 13:02:34 02/25/20 [id number]: PT Eval, Moderate Complexity completed Kendra Escamilla PT [address] [place], [address], [facility] 02/24/2019 13:02:39 06/25/19 Transitional care completed HUY Venegas [address] [place], [address], [facility] 06/25/2018 12:55:15 04/11/20 15 Asthma Control Test (12 + years old) completed Kendra Deluca LPN [facility] 04/11/2015 09:09:22 04/06/20 14 Asthma Control Test (12 + years old) completed Kendra 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 [address] [place], [address], [facility] 04/06/2014 09:26:18 Imaging Results Imaging Date Name Status LastModified by Organiz ation Details LastModified Time 09/14/2019 XR, lumbar spine completed [facility] Information not available 09/15/2019 10:42:35 09/14/2019 XR, hip, unilateral completed [facility] Information not available 09/15/2019 10:42:35 11/03/2019 MRI, brain, w/wo contrast completed [facility] Information not available 11/17/2019 15:10:56 12/20/2019 MAMMO, screening, tomosynthesis, bilateral, w/ CAD completed [facility] [address] [place] [address], [address], 12/20/2019 17:30:48 12/20/2019 MAMMO, screening completed [facility] [address] [place] [address], [address], 12/20/2019 10:28:48 12/20/2019 MAMMO, screening, tomosynthesis, bilateral, w/ CAD completed [facility] [address] [place] [address], [address], 12/20/2019 10:28:48 12/28/2020 MAMMO, screening, tomosynthesis, bilateral, w/ CAD completed [facility] [address] [place] [address], [address], 12/28/2020 12:18:42 12/28/2020 MAMMO, screening completed [facility] [address] [place] [address], [address], 12/28/2020 12:18:43 01/01/2022 MAMMO, screening, tomosynthesis, bilateral, w/ CAD completed [facility] [address] [place] [address], [address], 01/17/2022 17:02:38 01/01/2022 MAMMO, screening completed [facility] [address] [place] [address], [address], 01/17/2022 17:02:39 05/14/2022 bone density completed [facility] [address] [place] [address], [address], 06/04/2022 04:28:15 05/14/2022 DEXA completed [facility] [address] [place] [address], [address], 06/03/2022 11:22:43 05/14/2022 bone density completed [facility] [address] [place] [address], [address], 06/03/2022 11:22:44 05/14/2022 bone density completed [facility] [address] [place] [address], [address], 06/03/2022 11:22:44 05/14/2022 DEXA completed [facility] [address] [place] [address], [address], 06/03/2022 11:22:45 05/14/2022 bone density completed [facility] [address] [place] [address], [address], 06/03/2022 11:22:45 05/14/2022 bone density completed [facility] [address] [place] [address], [address], 06/03/2022 11:22:45 05/14/2022 DEXA completed [facility] [address] [place] [address], [address], 06/03/2022 11:22:46 05/14/2022 bone density completed [facility] [address], [address], 06/03/2022 11:22:46 01/03/2023 MAMMO, screening, tomosynthesis, bilateral, w/ CAD completed [address] [facility] [address] [place] [address], [address], 01/03/2023 16:50:27 01/03/2023 MAMMO, screening completed [address] [facility] [address] [place], [address], 01/03/2023 16:50:28 Procedure Notes None recorded. Medical Equipment None Reported. Allergies Allergen ID Allergen Name Allergen Category Reaction Reaction Severity Criticality Documentation Date Start Date Code Code System Note Provider Name and Address Organization Details Recorded Time 399882 prednison e medicatio n other Not available Not available 05/08/2020 8640 RxNorm adver se react ion- cloud ed think ing, felt bad Mariela Furcoabisai D.O. [address] [facility], [place], [address], [facility] 0 08:21:17 768522 mold extract environme nt Not available Not available Not available 08/17/2021 09680 8 RxNorm RICHARD Hamilton eduin [facility] 2 07:43:39 871109 cat dander environme nt Not available Not available Not available 08/17/2021 49244 UNK RICHARD Hamilton eduin [facility] 2 07:43:47 Medications Name Sig Start Date Stop Date Status Note LastModified by Organization Details LastModified Time valacyclo vir hcl 500 mg tabs active Not Available Not Available Not Available fluzone split 7227-0685 susp active Not Available Not Available Not Available elmiron cap 100mg active Not Available Not Available No t Available oxybutyni n tab 15mg er active Not Available Not Available Not Available singulair tab 10mg active Not Available Not Available Not Available monteluka st sodium 10 mg tabs active Not Available Not Available Not Available peak air radha mis adlt/ped active Not Available Not Available Not Available monteluka st tab 10mg active Not Available Not Available Not Available cyclobenz apr tab 5mg active Not [...] Available Not Available Not Available Fluzone High-Dose 1591-2646 (PF) 180 mcg/0.5 mL intramusc ular syringe [...] Updated DateTime 9 163.58 cm 20 kg/m2 20980.9 g 60 /min 112 mm[Hg] 64 mm[Hg] RICHARD Hamilton [facility] 9 07:53:24 Date Recorded Body weight Provider Name an d Address Organization Details Last Updated DateTime 05/08/2020 67478.86 g [facility] 05/08/2020 07:57:41 Date Recorded Body weight Body mass index (BMI) Body height Oxygen saturation Oxygen saturation in Arterial blood by Pulse oximetry Heart rate Systolic blood pressure Diastolic blood pressure Provider Name and Address Organization Details Last Updated DateTime 2 76792.6 8 g 20.4 kg/m2 163.83 cm 99 % 99 % 59 /min 119 mm[Hg] 65 mm[Hg] Angel Parr Randa [facility] 2 07:48:46 Date Recorded Body weight Body mass index (BMI) Body height Heart rate Oxygen saturation Oxygen saturation in Arterial blood by Pulse oximetry Systolic blood pressure Diastolic blood pressure Provider Name and Address Organization Details Last Updated DateTime 3 51364.4 5 g 20.6 kg/m2 165.1 cm 61 /min 100 % 100 % 116 mm[Hg] 76 mm[Hg] Angel Parr Randa [facility] 3 07:46:53 Social History Question Answer Notes LastModified by Organizat ion Details LastModified Time Tobacco Smoking Status Never Smoker checked kb -12-08 RICHARD Hamilton [facility] 08/23/2022 07:52:58 What Is Your Level Of Caffeine Consumption? Moderate Information not available 04/06/2014 How Much Tobacco Do You Chew? None [email or web address] Information not available 10/31/2014 What Type Of Diet Are You Following? GLUTENFREE Lactuse Intolerant Information not available 10/16/2012 Education 4 Year College [email or web address] Information not available 04/16/2016 How Many Days In The Past Year Have You Had A Heavy Drinking Consumption (4+ Female, 5+ Male)? 0 [email or web address] Information not available 10/16/2012 Are There Any Guns Present In Your Home? No [email or web address] Information not available 10/16/2012 Live Alone Or With Others? With Others [email or web address] Information not available 10/16/2012 Patient Has Health Care Proxy Signed And In Chart Yes [email or web address] Information not available 09/10/2021 Marital Status [email or web address] Informatio n not available 10/16/2012 Mosquito Repellent Used Routinely Yes Information not available 10/16/2012 What Was The Date Of Your Most Recent Tobacco Screening? 05/08/2020 Information not available 05/08/2020 How Many Children Do You Have? 1 Information not available 10/16/2012 Seat Belts Used Routinely Yes [email or web address] Information not available 10/16/2012 Are You Sexually Active? No Information not available 04/01/2013 Smoke Alarm In Home Yes [email or web address] Information not available 10/16/2012 How Much Tobacco Do You Smoke? No Information not available 02/21/2019 General Stress Level High [email or web address] Information not available 10/16/2012 Do You Use Sunscreen Routinely? Yes [email or web address] Information not available 10/16/2012 Sex: Unknown Functional Status Question Answer Note LastModified by Organizat ion Details LastModified Time What is your level of alcohol consumption? Occasional 3x a week with dinner 4-7-23 kb Information not available 08/23/2022 Do you or have you ever used smokeless tobacco? 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 Never used electronic cigarettes Information not available 02/21/2019 Mental Status None recorded. Family History Relationship [...] has some polyps. Medical History Condition Response Osteoarthritis Y GASTROINTESTINAL Osteopenia Y Allergic Rhinitis Y Asthma Y OTHER Gynecological HistoryNo gynecological history recorded. Obstetrics History GPAL:G 0 P 0 0 0 0 Immunizations Vaccine Type Date Status Note Provider Nam e and Address Organization Details Recorded Time Td(adult) unspecified formulation 2 completed Not Available [facility] 01/03/2023 22:23:29 influenza, unspecified formulation 2 completed Not Available [facility] 01/03/2023 22:23:29 influenza, unspecified formulation 6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
--- OUTSIDE RECORDS SUMMARY | 2024-09-28 06:28 | XMS_ITS ---
Author Organization [facility] Address [address] [facility] [place] [address] Care Team Providers Care Property Condition Assessor Name Role Phone Harini Lam MD Primary Care Provider Vu Chen Unavailable [phone] Allergies Allergen (clinical drug ingredient) Drug/Non Drug [...] W/U Status Risk Notes Problem Atherosclerosis of [place] arteries of the extremities ([id number]) Atherosclerosis of [place] artery of both lower extremities, with unspecified presence of clinical manifestation (I70.203) Active confirmed Q7(A), Q8(2B), Q9(1B,2 C) Vital Signs Height 5ft 6in in 06/11/2024 Weight 123 lbs 06/11/2024 BMI 19.85 kg/m2 06/11/2024 Blood pressure systolic 120 mm Hg 06/11/19 25 Blood pressure diastolic 80 mm Hg 025 Procedures Procedure Date Ordered Date Performed Result Body Sit e 35552-BTDBPHG NAIL, 6 OR MORE 06/11/2024 N/A 99921-EZOB SKIN LESIONS, OVER 4 06/11/2024 N/A Encounters Encounter Location Date Provider Diagnosis [facility] [address] [address] 06/11/2024 Vu Wang Atherosclerosis of [place] artery of both lower extremities, with unspecified presence of clinical manifestation I70.203 ; Tinea unguium B35.1 ; Pain in right toe(s) M79.674 and Pain in left toe(s) M79.675 Assessments Encounter Date Diagnosis (ICD Code) Assessment Notes Treatment Notes Treatment Clinical Notes Section Notes 06/11/2024 Atherosclerosis of [place] artery of both lower extremities, with unspecified presence of clinical manifestation (ICD-10 - I70.203) Q7(A), Q8(2B), Q9(1B,2C) 06/11/2024 Tinea unguium (ICD-10 - B35.1) 06/11/2024 Pain in right toe(s) (ICD-10 - M79.674) 06/11/2024 Pain in left toe(s) (ICD-10 - M79.675) Plan Of Treatment Pending Test Test Name Order Date 69448-DOODMGV NAIL, 6 OR MORE 06/11/2024 78762-TJQV SKIN LESIONS, OVER 4 06/11/19 25 Next Appt Details Follow Up: prn, Reason: Provider Name:Vu Wang , 12/17/2024 01:15:00 PM, [address] [place] [address], [address], Procedure Notes * Category Sub-Category Detail Notes [...] use of a nail nipper and/or dremel-type concrete grinder operator, to a more viable healthy nail plate [...] to maintain effectiveness in symptomatic relief - 04736 Keratoma Treatment Parring or Cutting o f [...] instrumentation by the physician of record - 70488, Q8 Progress Notes * Kendra BHATT SDOB:[birth year] (73 yo F)Acc No.[id number]:06/11/2024 Progress Note Patient:?Kendra BHATT S Provider:?Vu Wang DPM :1950???Age:73 Y???Sex:Female D ate:06/11/2024 Address:[address] [place] [address], Anthony santos [facility] Pcp:Harini Lam MD Subjective: * Chief Complaints: [...] yardwork, walking. ?Marital status: . 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 ???Drug/Alcohol:?AUDIT-C (Standard)?Did you have a [...] Forefoot, LEFT.? Assessment: * Assessment: 1.?Atherosclerosis of [place] artery of both lower extremities, with unspecified presence of clinical manifestation - I70.203 (Primary)???Notes :Q7(A), Q8(2B), Q9(1B,2C)???2.?Tinea unguium - B35.1???3.?Pain in right toe(s) - M79.674???4.?Pain in left toe(s) - M79.675??? Plan: * Treatment: 2.?Tinea unguium?Procedure: 17811-YKGAESQ NAIL, 6 OR MORE * Procedures:?Debride Nail [...] use of a nail nipper and/or dremel-type concrete grinder operator, to a more viable healthy nail plate [...] to maintain effectiveness in symptomatic relief - 37505.?Keratoma Treatment:?Parring or Cutting of Benign Hyperkeratotic Lesion(s)?(-57) [...] instrumentation by the physician of record - 16569, Q8.? * Procedure Codes:?20849 DEBRI DE NAIL, 6 OR MORE, Modifiers: XS 96051 TRIM SKIN LESIONS, OVER 4, Modifiers: XS , Q8 * Follow Up:?prn * Images: * Sign off status: Completed true * Provider:?Vu Wang DPM Date:?2024 Generated for Diana miranda/Ras/Melita on:?09/28/2024 06:28 AM EDT History and Physical Notes * [...]
--- OUTSIDE RECORDS SUMMARY | 2024-09-28 06:28 | XMS_ITS ---
Author Organization [facility] Address [address] [place] [address] Care Team Providers Care Conservator Artifacts Name Role Phone Harini Lam MD Primary Care Provider Unavaila Vu Moss Unavailable [phone] Allergies Allergen (clinical drug ingredient) Drug/Non Drug [...] Active Encounters Encounter Location Date Provider Diagnosis [address] [address] 06/08/2024 Vu Wang Plan Of Treatment Next Appt Details Provider Name:Vu Wang , 12/17/2024 01:15:00 PM, [address] [place] [address], [address], Progress Notes * Kendra BHATT SDOB:[birth year] (73 yo F)Acc No.[id number]:06/08/2024 Progress Note Patient:Kendra JARAMILLO Provider:?Vu Wang DPM :1950???Age:73 Y???Sex:Female D ate:06/08/2024 Address:[address] [place], [place] [id number] Pcp:Harini Lam MD Subjective: * Chief Complaints: [...] Wang DPM Date:?2024 Generated for Diana miranda/Ras/eTransmitting on:?09/28/2024 06:28 AM EDT
--- OUTSIDE RECORDS SUMMARY | 2024-09-28 06:29 | XMS_ITS ---
Author Organization [facility] Address [address] [facility] [place] [address] Care Team Providers Care Technical Spec Name Role Phone Harini Lam MD Primary Care Provider Vu Chen Unavailable [phone] Allergies Allergen (clinical drug ingredient) Drug/Non Drug Allergy documented on EMR Reaction Allergy Type Onset Date Status Mold Unknown Allergy Active prednisone Prednisone chest Pain Drug Allergy Acti ve REASON FOR VISIT At Risk Footcare, Painful Nail(s) aggravated by shoes and causing difficulty standing/walking. Medications Medication SIG (Take, Route, Frequency, Duration) Notes Start Date End Date Status Estradiol 0.025 MG/24HR as directed Orally Active Latanoprost Active Timolol Hemihydrate Active Dorzolamide HCl 2 % 1 drop into affected eye Ophthalmic Three times a day Active Custom Orthotics as directed B/L pes planus, metatarsalgia 09/08/2018 Active valACYclovir HCl 500 MG Orally Active Probiotic Active tylenol 1000mg TID Activ e oxyBUTYnin 10mg Acti ve PreserVision AREDS A ctive Multivitamin Active Montelukast Sodium 10 MG Orally Once a day Active Social History Tobacco Use: [...] ast year? No Points 0 Interpretation Negative Vital Signs Height 5ft 6in in 09/17/2024 Weight 123 lbs 09/17/2024 BMI 19.85 kg/m2 09/17/2024 Blood pressure systolic 128 mm Hg 09/18/19 Blood pressure diastolic 65 mm Hg 025 Procedures Procedure Date Ordered Date Performed Result Body Sit e 27602-MJUACAI NAIL, 6 OR MORE 09/17/2024 N/A 49001-CTNX SKIN LESIONS, OVER 4 09/17/2024 N/A Encounters Encounter Location Date Provider Diagnosis [facility] [place] [address] [place] [address] 09/17/2024 Vu Wang Atherosclerosis of [place] artery of both lower extremities, with unspecified presence of clinical manifestation I70.203 ; Tinea unguium B35.1 ; Pain in right toe(s) M79.674 and Pain in left toe(s) M79.675 Assessments Encounter Date Diagnosis (ICD Code) Assessment Notes Treatment Notes Treatment Clinical Notes Section Notes 09/17/2024 Atherosclerosis of [place] artery of both lower extremities, with unspecified presence of clinical manifestation (ICD-10 - I70.203) Q7(A), Q8(2B), Q9(1B,2C) 09/17/2024 Tinea unguium (ICD-10 - B35.1) 09/17/2024 Pain in right toe(s) (ICD-10 - M79.674) 09/17/2024 Pain in left toe(s) (ICD-10 - M79.675) Plan Of Treatment Pending Test Test Name Order Date 66099-OLZKGLM NAIL, 6 OR MORE 09/17/2024 48717-SZHZ SKIN LESIONS, OVER 4 09/18/19 25 Next Appt Details Follow Up: prn, Reason: Provider Name:Vu Wang , 12/17/2024 01:15:00 PM, [address] [place], [address], Procedure Notes * Category Sub-Category Detail Notes [...] use of a nail nipper and/or dremel-type crankshaft grinder, to a more viable healthy nail [...] to maintain effectiveness in symptomatic relief - 66571 Keratoma Treatment Parring or Cutting o f [...] instrumentation by the physician of record - 40832, Q8 Progress Notes * Kendra BHATT SDOB:[birth year] (73 yo F)Acc No.[id number]:09/17/2024 Progress Note Patient:?Kendra BHATT Provider:?Vu Wang DPM :1950???Age:73 Y???Sex:Female D ate:09/17/2024 Address:[address] [place], [place] [id number] Pcp:Harini Lam MD Subjective: * Chief Complaints: * ???At Risk FootcarePainful N ail(s) aggravated by shoes and causing difficulty standing/walking. * HPI: ???At Risk footcare:?Pt States Last PCP Visit:?Date?08/17/2024 ?Misc?States having cataract surgery for Right eye in October.? * ROS:?General/Constitutional:?Nausea?denies.?Vomiting?denies.?Hunger Thirst?denies.?Loss appetite?denies.?Chills?denies.?Fatigue?denies.?Fever?denies.?Night Sweats?denies.?Unexplained weight loss?denies.?Unexplained [...] stic Procedure:?Denies Past Hospitalization * Family History:?Mother: paddy e, poor circulation, foot problems, diagnosed with [...] yardwork, walking. ?Marital status: . 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 ???Drug/Alcohol:?AUDIT-C (Standard)?Did you have a [...] * Vitals:?Ht:5ft 6in, Wt:123, BMI:19.85, Shoe size:8-8.5, BP:128/65mm Hg, Ht-cm: 167.64 cm, Wt-k.79 kg. * [...] (s), 2, Left, SUB MTH (s), 3, Left.? Assessment: * Assessment: 1.?Tinea unguium - B35.1???2 .?Atherosclerosis of [place] artery of both lower extremities, with unspecified presence of clinical manifestation - I70.203 (Primary)???Specify :Q8???Notes :Q7(A), Q8(2B), Q9(1B,2C)???3.?Pain in right toe(s) - M79.674???4.?Pain in left toe(s) - M79.675??? Plan: * Treatment: 2.?Tinea unguium?Procedure: 94070-NCGMQMG NAIL, 6 OR MORE * Procedures:?Debride Nail [...] use of a nail nipper and/or dremel-type crankshaft grinder, to a more viable healthy nail [...] to maintain effectiveness in symptomatic relief - 93978.?Keratoma Treatment:?Parring or Cutting of Benign Hyperkeratotic Lesion(s)?(-57) [...] instrumentation by the physician of record - 37607, Q8.? * Procedure Codes:?18300 DEBRI DE NAIL, 6 OR MORE, Modifiers: XS 64113 TRIM SKIN LESIONS, OVER 4, Modifiers: XS , Q8 * Follow Up:?prn * Images: * Sign off status: Completed true * Provider:?Vu Wang DPM Date:?2024 Generated for Diana miranda/Ras/Melita on:?09/28/2024 06:28 AM EDT History and Physical Notes * HPI (History of Present Illness) Category Sub-Category Detail Notes Category Not es At Risk footcare Pt States Last PCP Visit: Date: [facility] States having catara ct surgery for Right eye in October Examination Category Sub-Category Detail Notes Category Not es Dermatologic SKIN FINDINGS: Skin exam reveal s Keratotic lesion(s) located at, Medial, IPJ, TA, Medial, IPJ, T5, SUB MTH (s), 1, B/L, SUB MTH (s), 2, Left, SUB MTH (s), 3, Left Vascular DP PULSES (B): 0/4, B/L PT [...]
--- OUTSIDE RECORDS SUMMARY | 2024-09-28 06:29 | XMS_ITS | Patient Health Record ---
Author Organization [facility] Address [address] [place] [address] Care Team Providers Care Battery Hand Name Role Phone Harini Lam MD Primary Care Provider Vu Chen Unavailable [phone] Allergies Allergen (clinical drug ingredient) Drug/Non Drug Allergy documented on EMR Reaction Allergy Type Onset Date Status Mold Unknown Allergy Active prednisone Prednisone chest Pain Drug Allergy Acti ve Reason For Referral No Information Medications Medication SIG (Take, Route, Frequency, Duration) Notes Start Date End Date Status Multivitamin Active Estradiol 0.025 MG/24HR as directed Orally Active Montelukast Sodium 10 MG Orally Once a day Active Latanoprost Active Timolol Hemihydrate Active valACYclovir HCl 500 MG Orally Active Dorzolamide HCl 2 % 1 drop into affected eye Ophthalmic Three times a day Active Custom Orthotics as directed B/L pes planus, metatarsalgia 09/08/2018 Active Probiotic Active tylenol 1000mg TID Activ e oxyBUTYnin 10mg Acti ve PreserVision AREDS A ctive Immunizations Vaccine Route Administration Date Status Comme [...] W/U Status Risk Notes Problem Atherosclerosis of [place] arteries of the extremities ([id number]) Atherosclerosis of [place] artery of both lower extremities, with unspecified presence of clinical manifestation (I70.203) Active confirmed Q7(A), Q8(2B), Q9(1B,2 C) Vital Signs Blood pressure diastolic 65 mm Hg 09/17/2024 Height 5ft 6in in 09/17/2024 Blood pressure systolic 128 mm Hg 09/17/2024 Weight 123 lbs 09/17/2024 BMI 19.85 kg/m2 09/17/2024 Procedures Procedure Date Ordered Date Performed Result Body Sit e 32261-OQNIXLF NAIL, 6 OR MORE 06/11/2024 N/A 96248-ULJK SKIN LESIONS, OVER 4 06/11/2024 N/A 25590-WGGVHIQ NAIL, 6 OR MORE 09/17/2024 N/A 06819-MUXF SKIN LESIONS, OVER 4 09/17/2024 N/A 18420-Ezlltrsc Plate 03/02/2024 N/A 31268-Ybgq Destruction, 1-14 03/02/2024 N/A 08154-NSGEEUK NAIL, 6 OR MORE 03/02/2024 N/A 42479-Fjqyxqht Plate 12/09/2023 N/A 16697-Sqln Destruction, 1-14 12/09/2023 N/A 96099-CXANVJX NAIL, 6 OR MORE 12/09/2023 N/A Encounters Encounter Location Date Provider Diagnosis [facility] [address] [address] 12/09/2023 Vu Kathleen Tinea unguium B35.1 ; Pain in right toe(s) M79.674 ; Pain in left toe(s) M79.675 ; Plantar wart B07.0 ; Pain in left foot M79.672 and Ingrown nail L60.[address] [facility] [address] 03/02/2024 Vu Kathleen Tinea unguium B35.1 ; Pain in right toe(s) M79.674 ; Pain in left toe(s) M79.675 ; Plantar wart B07.0 ; Pain in left foot M79.672 and Ingrown nail L60.[address] [address] 06/11/2024 Vu Wang Atherosclerosis of [place] artery of both lower extremities, with unspecified presence of clinical manifestation I70.203 ; Tinea unguium B35.1 ; Pain in right toe(s) M79.674 and Pain in left toe(s) M79.[address] [address] 09/17/2024 Vu Wang Atherosclerosis of [place] artery of both lower extremities, with unspecified presence of clinical manifestation I70.203 ; Tinea unguium B35.1 ; Pain in right toe(s) M79.674 and Pain in left toe(s) M79.[address] [address] 12/16/2023 Vu Wang [address] [address] 06/08/2024 Vu Wang Assessments Encounter Date Diagnosis (ICD Code) Assessment Notes Treatment Notes Treatment Clinical Notes Section Notes 12/09/2023 Tinea unguium (ICD-10 - B35.1) 03/02/2024 Tinea unguium (ICD-10 - B35.1) 06/11/2024 Atherosclerosis of [place] artery of both lower extremities, with unspecified presence of clinical manifestation (ICD-10 - I70.203) Q7(A), Q8(2B), Q9(1B,2C) 09/17/2024 Tinea unguium (ICD-10 - B35.1) 09/17/2024 Atherosclerosis of [place] artery of both lower extremities, with unspecified presence of clinical manifestation (ICD-10 - I70.203) Q7(A), Q8(2B), Q9(1B,2C) 09/17/2024 Pain in right toe(s) (ICD-10 - M79.674) 03/02/2024 Pain in right toe(s) (ICD-10 - M79.674) 06/11/2024 Tinea unguium (ICD-10 - B35.1) 12/09/2023 Pain in right toe(s) (ICD-10 - M79.674) 12/09/2023 Pain in left toe(s) (ICD-10 - M79.675) 03/02/2024 Pain in left toe(s) (ICD-10 - M79.675) 06/11/2024 Pain in right toe(s) (ICD-10 - M79.674) 09/17/2024 Pain in left toe(s) (ICD-10 - M79.675) 06/11/2024 Pain in left toe(s) (ICD-10 - M79.675) 03/02/2024 Plantar wart (ICD-10 - B07.0) 12/09/2023 Plantar wart (ICD-10 - B07.0) 12/09/2023 Pain in left foot (ICD-10 - M79.672) 03/02/2024 Pain in left foot (ICD-10 - M79.672) 03/02/2024 Ingrown nail (ICD-10 - L60.0) 12/09/2023 Ingrown nail (ICD-10 - L60.0) Plan Of Treatment Pending Test Test Name Order Date X ray : Foot, left 3V 09/08/2018 X ray : Foot, right 3V 09/08/2018 67176-ABXACDT NAIL, 6 OR MORE 06/25/2022 79596-LIHZAOB NAIL, 6 OR MORE 09/03/2022 37298-LPDPSKO NAIL, 6 OR MORE 11/15/2022 52706-EUVXNDY NAIL, 6 OR MORE 02/18/2023 59265-XLVODXM NAIL, 6 OR MORE 05/27/2023 10286-NERWBHO NAIL, 6 OR MORE 09/02/2023 42245-LYZWAWJ NAIL, 6 OR MORE 12/09/2023 57140-EQITWHT NAIL, 6 OR MORE 03/02/2024 88793-PKJBCXD NAIL, 6 OR MORE 06/11/2024 87625-YJHDMMR NAIL, OR MORE 09/17/2024 42805-Hwev Destruction, 1-14 03/02/2024 10142-Ysts Destruction, 06-0112/09/2023 72870-Uetl Destruction, 06-0109/02/2023 85333-Iluv Destruction, 06-0105/27/2023 77231-Uyxg Destruction, 06-0102/18/2023 11194-Renn Destruction, 06-0111/15/2022 40381-Etvk Destruction, 06-0109/03/2022 49841-Xlzh Destruction, 06-0103/29/2022 25564-Avjm Destruction, 06-0106/25/2022 76041-Ybuw Destruction, 06-0108/21/2021 67045-Hjlh Destruction, 06-0111/27/2021 65711-Mwmfukly Plate 11/27/2021 60495-Jjbklmhb Plate 06/25/2022 83585-Lngsbnde Plate 09/03/2022 17987-Zmsduhrz Plate 02/18/2023 75456-Ojjvnqov Plate 05/27/2023 13125-Kvtbipes Plate 09/02/2023 83816-Yjvdygvn Plate 12/09/2023 45154-Gzwsriut Plate 03/02/2024 94930-FLCX SKIN LESIONS, OVER 4 06/11/19 89977-DIET SKIN LESIONS, OVER 4 09/18/19 Next Appt Details Provider Name:Vu V Kathleen , 12/17/2024 01:15:00 PM, [address] [place], [address], Insurance Providers Payer Name Payer Address Payer Phone Subscriber Number Group Number Insured Name Patient Relationship to Insured Coverage Start Date Coverage End Date Medicare National [employer] [address] [place] [address] [id number] Kendra Santiago Self - patient is the insured [facility] [address] [place] [address] [phone] [id number] Kendra Santiago Self - patient is the insured Medical (General) History Medical History History ICD Code osteoarthritis asthma Back,Hip,and Knee pain Macular degeneration Measles Mumps Chicken pox Celiac disease Inflammatory bowel disease Overactive bladder (OAB) Glaucoma Surgical History Surgery Date(Month/Year) hip replacement 09/06/2020 Hospitalization History Reason Date(Month/Year)
[2024-09-28 10:14] LABS: MANUAL DIFF FLAG NO
[2024-09-28 10:23] LABS: Basophils Absolute Auto 0.1 X10*3/uL (0.0-0.2); Basophils Percent Auto 0.7 % (0-2); Eosinophils Absolute Auto 0.2 X10*3/uL (0.0-0.4); Eosinophils Percent Auto 2.6 % (0-4); Hematocrit 38.9 % (37.0-47.0); Hemoglobin 12.9 g/dl (12.0-16.0); Imm Gran Abs Auto 0.02 X10*3/uL (0.00-0.03); Imm Gran Pct Auto 0.3 % (0.0-0.4); Lymphocytes Absolute Auto 1.8 X10*3/uL (1.2-4.9); Lymphocytes Percent Auto 25.8 % (20-40); Mean Corpuscular HGB Conc 33.2 g/dl (31.0-35.0); Mean Corpuscular Hemoglobin 32.1 pg (27.0-33.0); Mean Corpuscular Volume 96.8 fL (80.0-98.0); Mean Platelet Volume 9.8 fL (9.4-12.3); Monocytes Absolute Auto 0.3 X10*3/uL (0.1-1.2); Monocytes Percent Auto 4.8 % (2-11); Neutrophils Absolute Auto 4.6 x10*3/uL (2.0-8.3); Neutrophils Percent Auto 65.8 % (45-73); Platelet Count 315 X10*3/uL (160-400); Red Blood Count 4.02 X10*6/uL (4.20-5.50); Red Cell Distribution Width 13.2 % (11.0-16.0); White Blood Count 6.9 X10*3/uL (4.8-10.8)
[2024-09-28 10:53] LABS: Alanine Aminotransferase 16 U/L (0-31); Anion Gap 11 (12-20); Aspartate Amino Transferase 25 U/L (5-31); Bilirubin Total 0.6 mg/dL (0.0-1.0); Blood Urea Nitrogen 16 mg/dL (9-16); Carbon Dioxide 28 mmol/L (22-29); Chloride 106 mmol/L (96-108); Cholesterol 177 mg/dL (<200); Estimated Glomerular Filt Rate > 60; Glucose Fasting 90 mg/dL (60-99); HDL Cholesterol 48 mg/dL (>40); LDL Cholesterol Calculated 111 mg/dL (<100); Potassium 3.9 mmol/L (3.3-5.1); Sodium 141 mmol/L (135-145); Total Protein 6.3 g/dL (6.5-8.0); Triglycerides 93 mg/dL (<150)
[2024-09-28 11:09] LABS: Folate 14.5 ng/mL (> or = 4.0); Vitamin B12 398 pg/mL (200-900)
[2024-09-28 11:21] LABS: Vitamin D 25-OH Total 68.6 ng/mL (>30)
[2024-09-28 12:46] LABS: Alkaline Phosphatase 50 U/L (39-117)
== END 2024-09-28 06:26 | disposition home or self-care (01) ==
LOC: HO.HMGCLDS 06:25
PROVIDERS: PCP Internal Medicine; Visit Provider Internal Medicine
DX: Z00.00 Encounter for general adult medical examination without abnormal findings (principal); M85.80 Other specified disorders of bone density and structure, unspecified site; H40.9 Unspecified glaucoma; E53.8 Deficiency of other specified B group vitamins; E55.9 Vitamin D deficiency, unspecified; Z13.6 Encounter for screening for cardiovascular disorders
CPT/HCPCS: 36415; 80053; 80061; 82306; 82607; 82746; 84443; 85025

== ENCOUNTER 2024-10-05 08:48 | Outpatient (AMB) | payer MEDICARE, SELFPAY ==
[2024-10-05 09:02] VITALS: BP 100/66; PULSE 54; RESP 16; TEMP 36.6; O2SAT 97; BMI 19.6
--- NOTE | 2024-10-05 09:02 | MHC.PC.OV ---
Vital Signs 10/05/24 09:02 Height 5 ft 5 in Weight 118 lb BMI 19.6 BP 100/66 Blood Pressure Location Lt brachial Position Sitting Respiration 16 Pulse 54 Pulse Source Pulse Oximeter Temp 97.8 F Temp Source Oral Pulse Oximetry (%) 97 Intake Visit Reasons: 6m follow up Intake Note: Pt is here today for 6 months follow up visit. Allergies gluten [GLUTEN] Allergy (Unknown, Verified 10/05/24 09:06) UNKNOWN Tobacco use date assessed: 10/05/24 Fall risk assessment: No Falls in past year Last assessed Fall Risk: 10/05/24 Dental Screening Dental Screen Date: 10/05/24 Did you have a dental visit in the last 12 months?: Yes Did you have a dental problem in the last 6 months where you did not have access to dental care?: No Was dental information given to patient?: Patient has dentist HPI 6m follow up HPI Details Pt presents for PE. She will have cataract and glaucoma surgery in October. 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 Housing: House Patient Tobacco Use Status: Never used Tobacco e-Cigarette/Vaping Use: Never Used service: No Current occupational status: employed Cognitive needs: No Hearing needs: No Vision needs: Yes Questionnaire Thrive Questionnaire Date Thrive assessed: 08/27/24 I am a: Patient What is your living situation today?: I have a steady place to live Within the past 12 months, did the food you bought not last and you didn't have the money to get more?: Never true Within the past 12 months, did you worry whether your food would run out before you got money to buy more?: Never true Do you have trouble paying for medicines?: No Do you have trouble getting transportation to medical appointments?: No Do you have trouble paying your heating and electricity bill?: No Do you have trouble taking care of your child, family member or friend?: No Do you have trouble with day-to-day activities such as bathing, preparing meals, shopping, managing finances, etc.?: No Are you currently unemployed and looking for a job?: No Are you interested in more education?: No Please select the resources that you would like help with: None Currently or been in a relationship where the following occur: No concerns reported THRIVE Score: 0 Review of Systems Const All systems reviewed & are unremarkable except as noted in HPI and below Eyes Reports no additional complaints ENT Reports no additional complaints Card Reports no additional complaints Resp Reports no additional complaints GI Reports no additional complaints Reports no additional complaints Physical exam (Primary Care) Vital Signs: Last Vital Signs Temp 97.8 F 10/05/24 09:02 Pulse 54 10/05/24 09:02 Resp 16 10/05/24 09:02 BP 100/66 10/05/24 09:02 Pulse Ox 97 10/05/24 09:02 BMI result Body Mass Index 19.6 Tobacco/Smoking Status: Tobacco use Status Tobacco use date assessed 10/05/24 10/05/24 09:08 Patient Tobacco Use Status Never used Tobacco 10/05/24 09:08 e-Cigarette/Vaping Use Never Used 10/05/24 09:08 Thrive Assessment: Date of Thrive Assessment Date Thrive assessed 08/27/24 10/05/24 09:08 Currently or been in a relationship where the following occur: No concerns reported Const General: no acute distress HENMT Head: Yes normal to inspection Ears: hearing grossly normal bilaterally Mouth: Normal oral and palatal mucosa present Throat: Yes posterior oropharynx normal Eyes General: appearance normal, both eyes and all related structures Neck Neck: Yes no lymphadenopathy and Yes supple Resp Effort & Inspection: normal respiratory effort Auscultation: clear to auscultation bilaterally Cardio Rhythm: regular rhythm Heart sounds: S1 normal heart sound present and S2 normal heart sound present GI Inspection: Yes normal to inspection Palpation (GI): Soft to palpation Percussion: Yes normal to percussion Auscultation: normal bowel sounds Coding Level of Care Code Est Pt Prev Care >65y(16421) Diagnoses Hx of colonoscopy Z98.890 Annual physical exam Z00.00 Osteopenia M85.80 Assessment & Plan Assessment & Plan (1) Hx of colonoscopy: Comment: 2022 3 polyps [facility] Code(s): Z98.890 - Other specified postprocedural states Category: Surgical Plan: Patient due for repeat colonoscopy in 1 year (2) Annual physical exam: Code(s): Z00.00 - Encounter for general adult medical examination without abnormal findings Category: Medical Plan: Well-balanced diet regular physical activity discussed with the patient she is up-to-date with the mammogram and DEXA (3) Osteopenia: Comment: f/u Dr. Fitch, on estradiol patch, DEXA 08/2024 osteopenia Code(s): M85.80 - Other specified disorders of bone density and structure, unspecified site Category: Medical Plan: Follow-up with rheumatology continue vitamin-D and calcium supplement
== END 2024-10-05 09:45 | disposition home or self-care (01) ==
PROVIDERS: PCP Internal Medicine; Visit Provider Internal Medicine
DX: M85.80 Other specified disorders of bone density and structure, unspecified site (principal)

== ENCOUNTER → 2024-10-05 08:48 | Outpatient (BNVA) | payer MEDICARE, SELFPAY | PROVIDERS: PCP Internal Medicine; Visit Provider Internal Medicine | DX: Z98.890 Other specified postprocedural states (principal); M85.80 Other specified disorders of bone density and structure, unspecified site | CPT/HCPCS: 99212 ==

== ENCOUNTER 2024-10-20 07:51 | Outpatient (REF) | payer MEDICARE, SELFPAY ==
--- NOTE | ~2024-10-20 | CT_ITS ---
EXAMINATION: CT ABDOMEN PELVIS WITH IV CONTRAST HISTORY: K57.92 - Diverticulitis of intestine, part unspecified, without perforation... COMPARISON: There are no prior studies for available comparison. TECHNIQUE: CT scan of the abdomen and pelvis was performed following administration of 85 mL Omnipaque 350 using standard departmental protocol. Coronal and sagittal reformatted images were generated and reviewed. Oral contrast material was not administered at the request of the referring physician. This CT exam was performed with one or more of the following dose reduction techniques: automated exposure control, adjustment of the mA and/or kV according to patient size, use of iterative reconstruction technique. DLP: 376 mGy-cm FINDINGS: LOWER CHEST: The visualized lung bases are clear. There is no pleural effusion. CARDIOVASCULATURE: The heart is normal in size. There is no pericardial effusion. LIVER: The liver is normal in size and contour. No liver mass is identified. The hepatic and portal veins are patent. GALLBLADDER / BILE DUCTS: The gallbladder is unremarkable. There is no intra or extrahepatic biliary ductal dilatation. SPLEEN: The spleen is normal in size. No focal splenic lesion is identified. PANCREAS: There is a 2.0 cm cystic structure in the pancreatic body. There is mild dilatation of the pancreatic duct in the tail. ADRENAL GLANDS: Within normal limits. KIDNEYS/RETROPERITONEUM: No renal calculi are identified. There is no hydronephrosis. No renal masses are identified. LYMPH NODES: No abdominal or pelvic lymphadenopathy. VASCULATURE: The abdominal aorta is normal in caliber. MESENTERY/PERITONEUM: No free fluid. No masses. There is no free intraperitoneal gas. STOMACH: The stomach is collapsed, limiting evaluation. SMALL BOWEL: The small bowel is normal in caliber. COLON: There is a large amount of stool throughout the colon. No pericolonic inflammation is seen to suggest diverticulitis. APPENDIX: The appendix is not seen, however no inflammatory changes are seen adjacent to the cecum. URINARY BLADDER/PELVIC ORGANS: The urinary bladder is obscured by streak artifact from a left total hip arthroplasty. The patient is status post hysterectomy. BONES / SOFT TISSUES: There is severe osteoarthritis of the right hip. There is a moderate compression fracture of L2, likely chronic. CT/CT abdomen pelvis w IV con IMPRESSION: 1. Large amount of stool throughout the colon. No CT evidence of diverticulitis. 2. 2.0 cm cystic structure in the pancreatic body. MRI of the pancreas without and with contrast is recommended. Electronically signed by: Felipe Sarah MD 10/20/2024 08:51 AM EDT
--- OUTSIDE RECORDS SUMMARY | 2024-10-20 07:55 | XMS_ITS | Data Portability ---
Author Organization [place] [facility], Allergy Address [address] [address] Care Team Providers Care Roguer Name Role Phone BARBARADAE Primary Care Provider [phone] Assessment Encounter Date Assessment Date Assessment LastModified [...] sensorineural hearing loss in the high frequencies. [email or web address] Not available 12/02/2023 10:49:19 Plan of Treatment [...] audio gram No observ ation record ed. [email or web address] Not Available 11/16 16:08:21 01/08/20 24 10/14/2019 [...] eural hearing loss of bilatera l ears 004318784 Active 2019 Sensorin eural hearing loss, bilatera l; Note: Date Diagnose d: 0 3:31 PM (H90.3) Not Available [facility] 4 02:39:36 Sleep disorder 09076440 Completed 201912/02/2023 Other sleep disorder s; Note: Date Diagnose d: 11/17/2019 11:22 AM (G47.8) Note: Date Diagnose d: 11/17/2019 11:22 AM (G47.8) RITCHIE GONZALEZ MD [address] [place] [address], [place], [address] , [facility] - [facility] 4 10:49:23 Labyrint hitis 23380097 Active 2019 Labyrint hitis, unspecif ied ear; Note: Date Diagnose d: 0 3:31 PM (H83.09) Not Available [facility] 4 02:39:45 Dizzines s and giddines s 502170849 Active 2023 LAAR PINEDA [address] [place] [address], [place], [address] , [facility] 4 09:59:06 Benign paroxysm al position al vertigo 043848204 Active 2023 RITCHIE GONZALEZ MD [address] [address], [place], [address] , [facility] 4 10:45:46 Problem Notes None recorded. Procedures Surgical History Date Name Laterality Status Provider Name and Address Organization Details Recorded Time 12/02/19 24 Comp Audio with Tymps - 20172 & 39543 completed LARA PINEDA [address] [facility],[address] [address], [place], [address], [facility] - [facility] 12/02/2023 09:58:50 total replacement of hip completed Ellen Estrada [facility] 12/02/2023 09:58:20 Imaging Results None recorded. Procedure Notes None recorded. Medical Equipment None Reported. Allergies Allergen ID Allergen Name Allergen Category Reaction Reaction Severity Criticality Documentation Date Start Date Code Code System Note Provider Name and Address Organization Details Recorded Time 788807 wheat gluten extract food Not available Not available Not available 12/02/2023 99084 81 RxNorm Ellen denny [facility] 4 09:56:15 Medications Name Sig Start Date [...] mg tablet 12/01 completed Medicati on ID: [id number] B rand Name: Acetamin ophen Extra Strength Send Method: E-Prescr ibed Sub s Allowed: subs OK Medic ationGen ericName : Acetamin ophen Extra Strength Medicat ion ID: [id number] B rand Name: Acetamin ophen Extra Strength Send Method: E-Prescr ibed Sub s Allowed: subs OK Medic ationGen ericName : Acetamin ophen Extra Strength Not Available Not Available Not Available fexofenad ine 60 mg tablet 12/01 completed Medicati on ID: [id number] B rand Name: fexofena dine Sen d Method: E-Prescr ibed Sub s Allowed: subs OK Medic ationGen ericName : fexofena dine Med ication ID: [id number] B rand Name: fexofena dine Sen d [...] citrate) tablet 12/01 completed Medicati on ID: [id number] B rand Name: calcium citrate Send Method: E-Prescr ibed Sub s Allowed: subs OK Medic ationGen ericName : calcium citrate Medicati on ID: [id number] B rand Name: calcium citrate Send Method: E-Prescr ibed Sub s Allowed: subs OK Medic ationGen ericName : calcium citrate Not Available Not Available Not Available GaviLyte- G 236 gram-22.7 4 gram-6.74 gram-5.86 gram oral solution TAKE 4000ML BY MOUTH DIRECTED OVER 2 DAYS 12/01 completed Not Available Not Available Not Available Vitamin D3 50 mcg (2,000 unit) capsule active Medicati on ID: [id number] B rand Name: Vitamin D3 Send Method: E-Prescr ibed Sub s Allowed: subs OK Medic ationGen ericName : Vitamin D3 Not Available Not Available Not Available ICaps AREDS 4,296 mcg-226 mg-90 mg capsule active Medicati on ID: [id number] B rand Name: ICaps AREDS Se nd [...] Details Last Updated DateTime 12/02/2023 157.48 cm 22224.86 g Ellen Estrada [place] - [facility] 12/02/2023 10:32:48 Social History None recorded. Functional [...] Note 7814 RITCHIE GONZALEZ MD [facility] [address] [address] 12/02/2023 09:00:37 12/02/2023 10:47:34 Sensorineural hearing loss of bilateral ears [id number] H90.3 Audiologic al evaluation results: 12/02/2023 Right ear: Normal sloping to a mild with senso rineural hearing loss with condu ctive hearing loss with mixed hearing loss with senso rineural hearing loss above 6K Hz with excellent word recognitio n. Left ear: Normal sloping to a mild with senso rineural hearing loss with condu ctive hearing loss with mixed hearing loss with senso rineural hearing loss above 6K Hz with excellent word recognitio n. Tympanomet ry: Right Ear:Type A Left Ear:Type A Dizziness and giddiness 767160145 R42 Labyrinthitis 65417203 H 83.09 Benign par oxysmal positional vertigo 633153589 H81.10 Health Concerns Section Related Observation LastModified by Organization Detai ls LastModified Time None Recorded Concern Status LastModified by Organization Details LastModified Time None Recorded Advance Directives Directive None Recorded Payers Insurance Date Sequence Insurance Name Policy Number Policy Brown Covered Member ID Brown Member ID Guarantor Name 12/02/2023 1 [employer] ([facility]) [id number] Kendra Patten Pamela [id number] Kendra Patten [place] Notes Date Note Type Note Provider Name [...] therapy. She went to vestibular rehab in [facility] where she underwent Juventino maneuvers as well as vestibular rehabilitation therapy. She reports having had some inexplicable falls prior to the rehab which has not recurred since the rehabilitation. She is dealing with macular degeneration, as well as glaucoma which is changing her vision. RITCHIE GONZALEZ MD [address] [place] [address], [phone], [facility] - [facility] 12/02/2023 10:50:04 OBGyn Episode No OBEpisode recorded.
[2024-10-20] MEDS: iohexoL 350 MG/ML 100 ML INFUS..BTL IV (08:39)
== END 2024-10-20 07:52 | disposition home or self-care (01) ==
LOC: HO.CT 07:51
PROVIDERS: PCP Internal Medicine; Visit Provider Internal Medicine
DX: K57.92 Diverticulitis of intestine, part unspecified, without perforation or abscess without bleeding (principal); R10.9 Unspecified abdominal pain
CPT/HCPCS: 74177; Q9967

== ENCOUNTER → 2024-10-20 07:53 | Outpatient (BNV) | payer MEDICARE, SELFPAY | PROVIDERS: PCP Internal Medicine; Visit Provider Radiology Diagnostic Radiology | DX: K57.92 Diverticulitis of intestine, part unspecified, without perforation or abscess without bleeding (principal) | CPT/HCPCS: 74177 ==

== ENCOUNTER → 2024-11-21 16:38 | Outpatient (BNV) | payer MEDICARE, SELFPAY | PROVIDERS: PCP Internal Medicine; Visit Provider Radiology Diagnostic Radiology | DX: K86.2 Cyst of pancreas (principal) | CPT/HCPCS: 74183 ==

== ENCOUNTER 2024-11-21 16:39 | Outpatient (REF) | payer MEDICARE, SELFPAY ==
--- NOTE | ~2024-11-21 | MR_ITS ---
EXAMINATION: MR ABDOMEN WITHOUT THEN WITH IV CONTRAST HISTORY: K86.89 - Other specified diseases of pancreas COMPARISON: Correlation is made with a CT of the abdomen with contrast dated 08/22/2024. TECHNIQUE: Axial in and out of phase T1-weighted gradient echo, axial diffusion weighted, and axial and coronal HASTE T2 with fat saturation images were obtained through the abdomen. Subsequently, fat suppressed axial and coronal T1-weighted images were obtained after the intravenous administration of 5.5 mL Gadavist. FINDINGS: Liver: There is no loss of signal intensity in the liver on opposed phase imaging to suggest steatosis. There is no enhancing liver mass. The hepatic and portal veins are patent. There is no intrahepatic biliary dilatation. Gallbladder/biliary tree: No gallstones are identified. The common bile duct is normal in caliber. No intraluminal filling defects are identified to suggest choledocholithiasis. Spleen: The spleen is unremarkable. Pancreas: Again seen is a multiseptated cystic lesion of the pancreatic body which measures 2.8 x 1.4 x 1.3 cm. No definite enhancement is seen. The pancreatic duct in the tail is slightly dilated. Adrenals: The adrenal glands are unremarkable. Kidneys: The kidneys are unremarkable. There is no hydronephrosis. Lymph nodes: There is no retroperitoneal lymphadenopathy in the upper abdomen. Fluid: There is no ascites in the upper abdomen. Visualized bowel: The visualized bowels loops are unremarkable in appearance. Visualized bones: The visualized bones demonstrate normal marrow signal intensity. MR/MR abdomen wo/w con IMPRESSION: 2.8 x 1.4 x 1.3 cm multiseptated cystic lesion of the pancreatic body without abnormal enhancement. According to [employer] guidelines regarding incidentally pancreatic cysts, a follow-up examination in 6 months is recommended. Electronically signed by: Felipe Sarah MD 11/22/2024 09:35 AM EDT
== END 2024-11-21 16:40 | disposition home or self-care (01) ==
LOC: HO.MRI 16:39
PROVIDERS: PCP Internal Medicine; Visit Provider Internal Medicine
DX: K86.89 Other specified diseases of pancreas (principal)
CPT/HCPCS: 74183; A9585

== ENCOUNTER 2025-01-18 07:28 | Outpatient (REF) | payer MEDICARE, SELFPAY ==
--- OUTSIDE RECORDS SUMMARY | 2024-06-08 12:00 | XMS_ITS ---
Author Organization [facility] Address [address] [place] [address] Care Team Providers Care Machine Tool Designer Name Role Phone Harini Lam MD Primary Care Provider Unavaila Vu Moss Unavailable [phone] Allergies Allergen (clinical drug ingredient) Drug/Non Drug Allergy documented on EMR Reaction Allergy Type Onset Date Status Mold Unknown Allergy Active prednisone Prednisone chest Pain Drug Allergy Acti ve Medications Medication SIG (Take, Route, Frequency, Duration) Notes Start Date End Date Status Latanoprost Active Dorzolamide HCl 2 % 1 drop into affected eye Ophthalmic Three times a day Active Custom Orthotics as directed B/L pes planus, metatarsalgia 09/08/2018 Active valACYclovir HCl 500 MG Orally Active tylenol 1000mg TID Activ e Probiotic Active PreserVision AREDS A ctive oxyBUTYnin 10mg Acti ve Multivitamin Active Montelukast Sodium 10 MG Orally Once a day Active Estradiol 0.025 MG/24HR as directed Orally Active Timolol Hemihydrate Active Encounters Encounter Location Date Provider Diagnosis [address] [address] 06/08/2024 Vu Wang Plan Of Treatment Next Appt Details Provider Name:Vu Wang , 04/05/2025 09:15:00 AM, [address] [place], [address], Progress Notes * Kendra BHATT SDOB:[birth year] (74 yo F)Acc No.[id number]:06/08/2024 Progress Note Patient: Kendra DUNHAM Provider: Stanley Wang DPM :1950 A ge:73 Y S ex:Female Date:06/08/2024 Address:[address] [place] [address], [facility] Pcp:Harini Lam MD Subjective: * Chief Complaints: * * Medical History: O steoarthritis, Asthma, Back,Hip,and Knee pain, Macular degeneration, Measles, Mumps, Chicken pox, Celiac disease, Inflammatory bowel disease, Overactive bladder (OAB). * Medications: T aking Dorzolamide HCl 2 % Solution 1 drop into affected eye Ophthalmic Three times a day , Taking Latanoprost , Taking Timolol Hemihydrate , Taking Estradiol 0.025 MG/24HR Patch Twice Weekly as directed Orally , Taking Montelukast Sodium 10 MG Tablet Orally Once a day , Taking Multivitamin , Taking oxyBUTYnin 10mg , Taking PreserVision AREDS , Taking Probiotic , Taking tylenol 1000mg TID , Taking valACYclovir HCl 500 MG Tablet Orally , Taking Custom Orthotics as directed B/L pes planus, metatarsalgia * Allergies: P rednisone: chest Pain - Allergy, Mold: Allergy. Objective: * Vitals: Assessment: Plan: * Treatment: * Images: * The named appointment provid er may or may not be the originator of this progress note, and it is not deemed complete until electronically signed by the appointment provider. Sign off status: Pending * Provider: Stanley Wang DPM Date: 0 06/08/2024 Generated for Diana miranda/Ras/Leonarditting on: 0 01/18/2025 07:31 AM EDT
--- OUTSIDE RECORDS SUMMARY | 2024-10-05 09:45 | XMS_ITS ---
Author Organization [facility] Address [address] [place] [id number] Care Team Providers Care Shoe Repairer Helper Name Role Phone Harini Lam MD Primary Care Provider Unavaila Vu Moss Unavailable [phone] REASON FOR VISIT Seen Sooner Encounters Encounter Location Date Provider Diagnosis [address] [address] 10/05/2024 Vu Wang Plan Of Treatment Next Appt Details Provider Name:Vu Wang , 04/05/2025 09:15:00 AM, [address] [place] [address], [phone], Progress Notes * Kendra BHATT SDOB:[birth year] (74 yo F)Acc No.[id number]:10/05/2024 Progress Note Patient: Kendra DUNHAM Provider: Stanley Wang DPM :1950 A ge:73 Y S ex:Female Date:10/05/2024 Address:[address] [place], [place] [id number] Pcp:Harini Lam MD Subjective: * Chief Complaints: * 1 . Seen Sooner. * Medical History: Objective: * Vitals: Assessment: Plan: * Treatment: * Images: * The named appointment provid er may or may not be the originator of this progress note, and it is not deemed complete until electronically signed by the appointment provider. Sign off status: Pending * Provider: Stanley Wang DPM Date: 0 10/05/2024 Generated for Diana Rodriguez on: 0 01/18/2025 07:32 AM EDT
--- NOTE | ~2025-01-18 | MM_ITS ---
EXAMINATION: MM SCREENING DIGITAL BREAST TOMOSYNTHESIS, BILATERAL CLINICAL INFORMATION: Screening. Asymptomatic. COMPARISON: Mammography: Comparison is made with available priors TECHNIQUE: Digital breast mammography with tomosynthesis is performed in both the craniocaudal and mediolateral oblique views along with computer-aided detection (CAD). FINDINGS: There are scattered areas of fibroglandular density (ACR BI-RADS breast composition Category b). Bilateral circumscribed oval masses are stable dating back to 2020. There are no significant masses, abnormal calcifications, or other abnormalities. MM/MM tomosynthesis screening BI IMPRESSION: No mammographic evidence of malignancy. ASSESSMENT: BI-RADS BI-RADS 2 - Benign Findings RECOMMENDATION: Routine annual mammography screening. 1 year F/U This examination should not preclude the clinical evaluation of a suspicious palpable abnormality. This patient's information was entered into a reminder system with a target due date for their next mammogram. Electronically signed by: Hillary Singh DO 01/18/2025 07:57 PM EDT
--- OUTSIDE RECORDS SUMMARY | 2025-01-18 07:31 | XMS_ITS | Encounter Summary ---
Author Organization [facility] Address [address] [place] [address] Phone Care Team Providers Care Blasting Coal Miner Name Role Phone Dana Cordero DO Primary Care Provider [phone] Dana Cordero DO Primary Care Provider [phone] Encounter Details Date Type Department Care Team (Late st Contact Info) Description 11/05/2021 Procedure Pass [address] [address] Social History Tobacco Use Types Packs/Day Years Used Date Smoking Tobacco: Never Smokeless Tobacco: Never Alcohol Use Standard Drinks/Week Comments Yes 0 (1 standard drink = 0.6 oz pur e alcohol) Socially Comments No Sex and Gender Information Value Date Recorded Sex Assigned at Female 11/26/2017 7:52 AM EDT Legal Sex Female 10:02 PM EDT Gender Identity Female 11/26/2017 7:52 AM EDT Sexual Orientation Not on file documented as of this encounter Plan of Treatment Not on file documented as of this encounter Visit Diagnoses Not on filedocumented in this encounter Care Teams Blasting Coal Miner Relationship Specialty Start Date End Date Dana Cordero DO [address] [place] [address] PCP - General 05/22/17 12/31/21 Dana Cordero DO [address] [place] [address] PCP - General Internal Medicine 01/01/22 documented as of this encounter Additional Source Comments The information contained in this document represents components of the legal health record. It is not the complete legal health record.[facility]
--- OUTSIDE RECORDS SUMMARY | 2025-01-18 07:31 | XMS_ITS | Encounter Summary ---
Author Organization [facility] Address [address] [place] [address] Phone Care Team Providers Care Pellet Machine Operator Name Role Phone Dana Cordero DO Primary Care Provider [phone] Encounter Details Date Type Department Care Team (Latest Contact Info) Description 09/19/2022 Transcribe Orders Virtual Department [address] [place] [address] Dana Cordero DO [address] [place] [address] [place] [address] [email or web address] Breast screening (Primary Dx) Social History Tobacco Use Types Packs/Day Years Used Date Smoking Tobacco: Never Smokeless Tobacco: Never Alcohol Use Standard Drinks/Week Comments Yes 0 (1 standard drink = 0.6 oz pur e alcohol) Socially Education Answer Date Recorded Are you interested in more education? Not on ayleen e 09/13/2022 Are you concerned about learning? Not on file 09/13/2022 No 09/13/2022 No 09/13/2022 Comments No Sex and Gender Information Value Date Recorded Sex Assigned at Female 11/26/2017 7:52 AM EDT Legal Sex Female 10:02 PM EDT Gender Identity Female 11/26/2017 7:52 AM EDT Sexual Orientation Not on file documented as of this encounter Plan of Treatment Not on file documented as of this encounter Results * BI MAMMOGRAM SCREENING WITH TOMOSYNTHESIS WITH CAD (BILATERAL) (01/03/2023 7:24 AM EDT) Anatomical Region Laterality Modality Breast Left, Breast Right, Breast Bilateral Bila teral Mammography 01/03/2023 12:5 7 PM EDT Impressions 01/03/2023 1:01 PM EDT No findings suspicious for malignancy. In the absence of a worrisome palpable abnormality, annual screening mammography is recommended. BI-RADS CATEGORY: 2 - Benign finding. DENSITY: The breast tissue is heterogeneously dense, which could obscure a lesion on mammography. Narrative 01/03/2023 1:01 PM EDT AVAILABLE COMPARISON: 01/01/2022 through 02/23/2004. Bilateral 3-D tomosynthesis with 2-D reconstructions in the CC and MLO projection. Computer-aided detection system also utilized. No new mass, asymmetry, architectural distortion or suspicious calcifications have become apparent in either breast. Multiple chronic bilateral circumscribed masses unchanged. Procedure Note Kody Mary MD - 01/03/2023 AVAILABLE COMPARISON: 01/01/2022 through 02/23/2004. Bilateral 3-D tomosynthesis with 2-D reconstructions in the CC and MLOprojection. Computer-aided detection system also utilized. No new mass, asymmetry, architectural distortion or suspiciouscalcifications have become apparent in either breast. Multiple chronic bilateral circumscribed masses unchanged. IMPRESSION: No findings suspicious for malignancy. In the absence of a worrisomepalpable abnormality, annual screening mammography is recommended. BI-RADS CATEGORY: 2 - Benign finding. DENSITY: The breast tissue is heterogeneously dense, which could obscurea lesion on mammography. Dana Cordero DO IMG MG EXAMS Final Result documented in this encounter Visit Diagnoses Diagnosis Breast screening- Primary Breast screening, unspecified Breast screening Breast screening, unspecified documented in this encounter Care Teams Pellet Machine Operator Relationship Specialty Start Date End Date Dana Cordero DO [address] [place] [address] PCP - General Internal Medicine 01/01/22 documented as of this encounter Additional Source Comments The information contained in this document represents components of the legal health record. It is not the complete legal health record.[facility]
--- OUTSIDE RECORDS SUMMARY | 2025-01-18 07:32 | XMS_ITS | Encounter Summary ---
Author Organization [facility] Address [address] [place] [address] [place] [address] Phone Care Team Providers Care Senior Genetic Counselor Name Role Phone Dana Cordero DO Primary Care Provider [phone] Encounter Details Date Type Department Care Team (Latest Contact Info) Description 10/07/2022 Transcribe Orders [facility] [address] [place] [address] Jasen Santillan MD [address] [facility] [address] [place] [address] [email or web address] Irritable bowel syndrome with diarrhea (Primary Dx); Gastroesophageal reflux disease, unspecified whether esophagitis present Social History Tobacco Use Types Packs/Day Years Used Date Smoking Tobacco: Never Smokeless Tobacco: Never Alcohol Use Standard Drinks/Week Comments Yes 0 (1 standard drink = 0.6 oz pur e alcohol) Socially Education Answer Date Recorded Are you interested in more education? Not on ayleen e 09/13/2022 Are you concerned about learning? Not on file 09/13/2022 No 09/13/2022 No 09/13/2022 Digital Access Answer Date Recorded No 10/11/2022 No 10/11/2022 Reliable internet access at home? Not on file 10/11/2022 Device with a working camera? Not on file Comments No Sex and Gender Information Value Date Recorded Sex Assigned at Female 11/26/2017 7:52 AM EDT Legal Sex Female 10:02 PM EDT Gender Identity Female 11/26/2017 7:52 AM EDT Sexual Orientation Not on file documented as of this encounter Plan of Treatment Not on file documented as of this encounter Results * Intrinsic factor blocking antibodies (10/07/2022 9:43 AM EDT) INTR FACTR BLOCK AB Negative Negative [facility] MED/PATH [facility] Comments (Chemistry) SEE NOTE [facility]/PATH [facility]PERIOR Comment: (NOTE) Intrinsic Factor Blocking Antibody (IFBA) antibodies are absent in approximately 50% of individuals with pernicious anemia (PA). The absence of elevated IFBA antibodies does not rule out the presence of PA; further studies such as gastrin testing may be indicated. Blood 10/07/2022 9:43 AM EDT 10/07/2022 4:24 PM EDT Jasen Santillan MD LAB BLOOD ORDERABLES Final Re sult Performing Organization Address [facility] Co de Phone Number [facility] LAB MED/PATH [address] [place] [address] * Parietal Cell Antibody (10/07/2022 9:43 AM EDT) Parietal Cell Ab, IgG <10.0 <=20.0 (Negative) U [facility] MED/[facility] Blood 10/07/2022 9:43 AM EDT 10/07/2022 4:24 PM EDT Jasen Santillan MD LAB BLOOD ORDERABLES Final Re sult Performing Organization Address [facility] Co de Phone Number [facility] MED/PATH [address] [place] [address] * Methylmalonic acid, serum (10/07/2022 9:43 AM EDT) METHYLMALONIC ACID 0.16 <=0.40 nmol/mL [facility] DPT OF LAB MED AND PAT+ Comment: (NOTE) ADDITIONAL INFORMATION This test was developed and its performance characteristics determined by [facility] in a manner consistent with CLIA requirements. This test has not been cleared or approved by the U.S. Food and Drug Administration. Blood 10/07/2022 9:43 AM EDT 10/07/2022 4:24 PM EDT us Jasen Santillan MD LAB BLOOD ORDERABLES Final Re sult Performing Organization Address [facility] de Phone Number [facility] DPT OF LAB MED AND PAT+ [address] [place] [address] * Copper, blood (10/07/2022 9:43 AM EDT) Copper, serum 93 77 - 206 mcg/dL [facility] MED/[facility] Comment: (NOTE) ADDITIONAL INFORMATION This test was developed and its performance characteristics determined by [facility] in a manner consistent with CLIA requirements. This test has not been cleared or approved by the U.S. Food and Drug Administration. Blood 10/07/2022 9:43 AM EDT 10/07/2022 4:24 PM EDT us Jasen Santillan MD LAB BLOOD ORDERABLES Final Re sult Performing Organization Address [facility] de Phone Number [facility] MED/[facility] [address] [place] [address] * (ABNORMAL) Zinc (10/07/2022 9:43 AM EDT) Zinc, S 116(H) 60 - 106 mcg/dL [facility] MED/PATH [facility]IOR Comment: (NOTE) ADDITIONAL INFORMATION This test was developed and its performance characteristics determined by [facility] in a manner consistent with CLIA requirements. This test has not been cleared or approved by the U.S. Food and Drug Administration. Blood 10/07/2022 9:43 AM EDT 10/07/2022 4:24 PM EDT us Jasen Santillan MD LAB BLOOD ORDERABLES Final Re sult [facility] LAB MED/PATH [facility] [address] [place] [address] * (ABNORMAL) 25-OH vitamin D (10/07/2022 9:43 AM EDT) 25 OH VIT D (TOTAL) 73(H) 30 - 60 ng/mL [facility] Blood 10/07/2022 9:43 AM EDT 10/07/2022 9:55 AM EDT us Jasen Santillan MD LAB BLOOD ORDERABLES Final Re sult Performing Organization Address [facility] Co de Phone Number [address] [address] * (ABNORMAL) Vitamin B12 (10/07/2022 9:43 AM EDT) VITAMIN B12 1,505(H) 232 - 1,245 pg/mL [facility] Blood 10/07/2022 9:43 AM EDT 10/07/2022 9:55 AM EDT us Jasen Santillan MD LAB BLOOD ORDERABLES Final Re sult Performing Organization Address [facility] Co de Phone Number [address] [address] * Vitamin A (10/07/2022 9:43 AM EDT) VITAMIN A 75.1 32.5 - 78.0 mcg/dL [facility] LAB MED/PATH [facility]IOR Comment: (NOTE) ADDITIONAL INFORMATION This test was developed and its performance characteristics determined by [facility] in a manner consistent with CLIA requirements. This test has not been cleared or approved by the U.S. Food and Drug Administration. Blood 10/07/2022 9:43 AM EDT 10/07/2022 4:24 PM EDT us Jasen Santillan MD LAB BLOOD ORDERABLES Final Re sult Performing Organization Address City/[facility]/ZIP Co de Phone Number [facility] LAB MED/PATH [facility] [address] [place] [address] * PT-INR (10/07/2022 9:43 AM EDT) PT 11.3 10.2 - 12.9 sec [facility] INR 1.0 0.9 - 1.1 [facility] Comment:Therapeutic range fo r oral Vitamin K antagonists: 2.0-3.5 Blood 10/07/2022 9:43 AM EDT 10/07/2022 9:55 AM EDT Jasne Santillan MD LAB BLOOD ORDERABLES Final Re sult Performing Organization Address [facility] Co de Phone Number [address] [address] * Ferritin (10/07/2022 9:43 AM EDT) FERRITIN 66 13 - 150 ug/L [facility] Blood 10/07/2022 9:43 AM EDT 10/07/2022 9:55 AM EDT us Jasen Santillan MD LAB BLOOD ORDERABLES Final Re sult Performing Organization Address [facility] Co de Phone Number [address] [address] * (ABNORMAL) Folate (10/07/2022 9:43 AM EDT) FOLIC ACID >20.0(H) 4.2 - 19.9 ng/mL [facility] Blood 10/07/2022 9:43 AM EDT 10/07/2022 9:55 AM EDT Result Mohsen Santillan MD LAB BLOOD ORDERABLES Final Re sult Performing Organization Address [facility]/ZIP Co de Phone Number [address] [address] * TSH (10/07/2022 9:43 AM EDT) TSH 1.58 0.27 - 4.20 uIU/mL [facility] Blood 10/07/2022 9:43 AM EDT 10/07/2022 9:55 AM EDT Result Mohsen Santillan MD LAB BLOOD ORDERABLES Final Re sult Performing Organization Address [facility] Co de Phone Number [address] [address] * Iron and iron binding capacity (10/07/2022 9:43 AM EDT) IRON 93 30 - 160 ug/dL [facility] IRON BINDING CAPACITY 319 228 - 428 ug/dL [facility] TRANSFERRIN SATURAT. 29 15 - 50 % [facility] Blood 10/07/2022 9:43 AM EDT 10/07/2022 9:55 AM EDT Result Mohsen Santillan MD LAB BLOOD ORDERABLES Final Re sult Performing Organization Address [facility]/ZIP Co de Phone Number [address] [address] * Lipid panel (10/07/2022 9:43 AM EDT) HDL 60 mg/dL [facility] Comment: Interpretation <40 mg/dL: Low HDL cholesterol (major risk factor for CHD) Greater than or equal to 60 mg/dL: High HDL cholesterol ( negative risk factor for CHD) HDL - cholesterol is affected by a number of factors, e.g. smoking, excerise, hormones, sex and age. CHOLESTEROL 209 0 - 240 mg/dL [facility] TRIGLYCERIDES 139 30 - 160 mg/dL [facility] LDL 121 50 - 129 mg/dL [facility] Comment: LDL levels in terms of risk for coronary heart disease: <100 mg/dL: Optimal 100-129 mg/dL: Near or above optimal 130-159 mg/dL: Borderline high 160-189 mg/dL: High >190 mg/dL: Very High CARDIAC RISK RATIO 3.5 3.3 - 4.4 C [facility] Blood 10/07/2022 9:43 AM EDT 10/07/2022 9:59 AM EDT us Jasen Santillan MD LAB BLOOD ORDERABLES Final Re sult Performing Organization Address [facility] Co de Phone Number [address] [address] * C-Reactive Protein (10/07/2022 9:43 AM EDT) C REACTIVE PROTEIN <3.0 0.0 - 4.0 mg/L [facility] Blood 10/07/2022 9:43 AM EDT 10/07/2022 9:55 AM EDT us Jasen Santillan MD LAB BLOOD ORDERABLES Final Re sult Performing Organization Address City/[facility]/ZIP Co de Phone Number [address] [address] * Comprehensive metabolic panel (10/07/2022 9:43 AM EDT) SODIUM 140 133 - 146 mmol/L [facility] POTASSIUM 4.2 3.3 - 5.1 mmol/L [facility] CHLORIDE 103 96 - 108 mmol/L [facility] CO2 27 21 - 35 mmol/L [facility] BUN 17 6 - 19 mg/dL [facility] CREATININE 0.50 0.5 - 1.5 mg/dL [facility] GLUCOSE 87 70 - 99 mg/dL [facility] ALBUMIN 4.2 3.9 - 4.8 g/dL [facility] TOTAL PROTEIN 6.9 6.5 - 8.0 g/dL [facility] CALCIUM 10.0 8.4 - 10.3 mg/dL [facility] ALKALINE PHOSPHATASE 63 39 - 117 U/L [facility] TOTAL BILIRUBIN 0.3 0.0 - 1.2 mg/dL [facility] AST 27 0 - 37 U/L [facility] ALT 19 0 - 40 U/L [facility] GLOBULIN 2.7 1 - 4.8 g/dL [facility] EGFR 100 >59 mL/min/1.7 3m2 [facility] Comment:Estimated glomerular filtration rate calculated using the CKD-EPI refit equation. ANION GAP 14 10 - 20 mmol/L [facility] Blood 10/07/2022 9:43 AM EDT 10/07/2022 9:55 AM EDT us Jasen Santillan MD LAB BLOOD ORDERABLES Final Re sult [facility] [address] [place], [place] [id number] * (ABNORMAL) CBC and differential (10/07/2022 9:43 AM EDT) WBC 6.79 4.00 - 11.00 K/uL [facility] RBC 4.04 3.72 - 5.30 M/uL [facility] HGB 13.0 11.4 - 15.9 g/dL [facility] HCT 40.5 34.2 - 46.8 % [facility] PLT 316 140 - 430 K/uL [facility] MCV 100.2(H) 78.0 - 97.0 fL [facility] MCH 32.2 25.0 - 33.0 pg [facility] MCHC 32.1 32.0 - 36.0 g/dL [facility] RDW 12.3 11.0 - 16.0 % [facility] MPV 10.0 8.4 - 12.8 fl [facility] DIFF METHOD Auto [facility] NEUTS 66.8 43.0 - 75.0 % [facility] LYMPHS 25.2 18.2 - 47.4 % [facility] MONOS 4.6 4.00 - 11.00 % [facility] EOS 2.4 0.0 - 8.0 % [facility] BASOS 0.9 0.0 - 2.0 % [facility] Granulocytes, immature (%) 0.1 0.0 - 0.9 % [facility] ABSOLUTE NEUTS 4.54 1.80 - 7.70 K/uL [facility] ABSOLUTE LYMPHS 1.71 1.00 - 3.10 K/uL [facility] ABSOLUTE MONOS 0.31 0.20 - 0.80 K/uL [facility] ABSOLUTE EOS 0.16 0.00 - 0.80 K/uL [facility] ABSOLUTE BASOS 0.06 0.00 - 0.09 K/uL [facility] Granulocytes, immature 0.01 0.00 - 0.05 K/uL [facility] Blood 10/07/2022 9:43 AM EDT 10/07/2022 9:55 AM EDT Jasen Santillan MD LAB BLOOD ORDERABLES Final Re sult Performing Organization Address City/[facility] Co de Phone Number [address] [address] * Immunoglobulin A (10/07/2022 9:43 AM EDT) IgA 192 70 - 400 mg/dL [facility] Blood 10/07/2022 9:43 AM EDT 10/07/2022 9:55 AM EDT us Jasen Santillan MD LAB BLOOD ORDERABLES Final Re sult Performing Organization Address [facility] Co de Phone Number [address] [address] * Tissue transglutaminase IgA (10/07/2022 9:43 AM EDT) TTG IGA ANTIBODY 3.8 <4.0 (Negative) U/mL [facility] LAB MED/PATH [facility] Blood 10/07/2022 9:43 AM EDT 10/07/2022 4:24 PM EDT Jasen Santillan MD LAB BLOOD ORDERABLES Final Re sult Performing Organization Address City/[facility]/ZIP Co de Phone Number [facility] LAB MED/PATH [facility] [address] [place] [address] * Antinuclear antibody (DARRYL) (10/07/2022 9:43 AM EDT) DARRYL SCREEN ON HEP 2 Negative Negative [facility] Blood 10/07/2022 9:43 AM EDT 10/07/2022 9:55 AM EDT Jasen Santillan MD LAB BLOOD ORDERABLES Final Re sult Performing Organization Address City/[facility] Co de Phone Number [facility] [address] [place] [address] documented in this encounter Visit Diagnoses Diagnosis Irritable bowel syndrome with diarrhea- Primary Irritable bowel syndrome Gastroesophageal reflux disease, unspecified whether esophagitis present documented in this encounter Care Teams Senior Genetic Counselor Relationship Specialty Start Date End Date Dana Cordero DO [address] [place] [address] PCP - General Internal Medicine 01/01/22 documented as of this encounter Additional Source Comments The information contained in this document represents components of the legal health record. It is not the complete legal health record.[facility]
--- OUTSIDE RECORDS SUMMARY | 2025-01-18 07:32 | XMS_ITS | Encounter Summary ---
Author Organization [facility] Address [address] [place] [address] Phone Care Team Providers Care Business Development Name Role Phone Dana Cordero DO Primary Care Provider [phone] Dana Cordero DO Primary Care Provider [phone] Encounter Details Date Type Department Care Team (Latest Contact Info) Description 05/05/2018 Transcribe Orders [facility] Laboratory [address] [address] Mary Jo Garcia PA [address] [place] [address] Celiac disease (Primary Dx) Social History Tobacco Use Types [...] documented as of this encounter Results * Magnesium (05/05/2018 1:36 PM EST) MAGNESIUM 2.3 1.6 - 2.6 mg/dL [facility] Blood 05/05/2018 1:36 PM EST 05/05/2018 1:42 PM EST Mary Jo SON LAB BLOOD ORDERABLES Final Result Performing Organization Address City/[facility]/ZIP Co de Phone Number [address] [address] * (ABNORMAL) 25-OH vitamin D (05/05/2018 1:36 PM EST) 25 OH VIT D (TOTAL) >60(H) 30 - 60 ng/mL [facility] Blood 05/05/2018 1:36 PM EST 05/05/2018 1:42 PM EST Mary Jo SON LAB BLOOD ORDERABLES Final Result Performing Organization Address [facility] Co de Phone Number [address] [address] * Zinc (05/05/2018 1:36 PM EST) Pathologist [facility] ZINC 1.07 0.66 - 1.10 mcg/mL [facility] Comment: (NOTE) ADDITIONAL INFORMATION This test was developed and its performance characteristics determined by [facility] in a manner consistent with CLIA requirements. This test has not been cleared or approved by the U.S. Food and Drug Administration. Blood 05/05/2018 1:36 PM EST 05/05/2018 1:41 PM EST Mary Jo SON LAB BLOOD ORDERABLES Final Result Performing Organization Address [facility] Co de Phone Number [facility] [address] [place] [address] * Vitamin B12 (05/05/2018 1:36 PM EST) VITAMIN B12 703 232 - 1,245 pg/mL [facility] Blood 05/05/2018 1:36 PM EST 05/05/2018 1:42 PM EST Mary Jo SON LAB BLOOD ORDERABLES Final Result [address] [address] * (ABNORMAL) Folate (05/05/2018 1:36 PM EST) FOLIC ACID >20.0(H) 4.2 - 19.9 ng/mL [facility] Blood 05/05/2018 1:36 PM EST 05/05/2018 1:42 PM EST Mary Jo SON LAB BLOOD ORDERABLES Final Result Performing Organization Address [facility]/ZIP Co de Phone Number [address] [address] * Ferritin (05/05/2018 1:36 PM EST) Pathologist [facility] FERRITIN 132 13 - 150 ug/L [facility] Blood 05/05/2018 1:36 PM EST 05/05/2018 1:42 PM EST Mary Jo SON LAB BLOOD ORDERABLES Final Result Performing Organization Address [facility]/[place] Co de Phone Number [address] [address] * (ABNORMAL) Comprehensive metabolic panel (05/05/2018 1:36 PM EST) Pathologist [facility] SODIUM 143 133 - 146 mmol/L [facility] POTASSIUM 3.9 3.3 - 5.1 mmol/L [facility] CHLORIDE 103 96 - 108 mmol/L [facility] CO2 28 21 - 35 mmol/L [facility] BUN 17 6 - 19 mg/dL [facility] CREATININE 0.50 0.5 - 1.5 mg/dL [facility] GLUCOSE 107(H) 70 - 99 mg/dL [facility] ALBUMIN 4.1 3.9 - 4.8 g/dL [facility] TOTAL PROTEIN 6.6 6.5 - 8.0 g/dL [facility] CALCIUM 9.4 8.4 - 10.3 mg/dL [facility] ALKALINE PHOSPHATASE 52 39 - 117 U/L [facility] TOTAL BILIRUBIN 0.3 0.0 - 1.2 mg/dL [facility] AST 22 0 - 37 U/L [facility] ALT 15 0 - 40 U/L [facility] GLOBULIN 2.5 1 - 4.8 g/dL [facility] EGFR 99 >59 mL/min/1.7 3m2 [facility] Comment:If patient is black, multiply result by 1.159. Estimated glomerular filtration rate calculated using the CKD-EPI equation. ANION GAP 16 10 - 20 mmol/L [facility] Blood 05/05/2018 1:36 PM EST 05/05/2018 1:42 PM EST us Mary Jo SON LAB BLOOD ORDERABLES Final Result Performing Organization Address City/State/[place] Co de Phone Number [address] [address] * CBC (05/05/2018 1:36 PM EST) WBC 6.31 3.40 - 11.20 K/uL [facility] RBC 4.15 3.80 - 4.80 M/uL [facility] HGB 13.2 12.0 - 15.0 g/dL [facility] HCT 40.3 36.0 - 46.0 % [facility] PLT 322 130 - 400 K/uL [facility] MCV 97.1 79.0 - 98.0 [facility] MCH 31.8 27.0 - 34.8 pg [facility] MCHC 32.8 31.5 - 36.0 g/dL [facility] RDW 12.3 10.8 - 14.6 % [facility] MPV 9.8 9.4 - 12.4 [facility] NRBC 0.00 0.00 /100 WBCs [facility] ABSOLUTE NRBC 0.00 0.00 K/uL [facility] Blood 05/05/2018 1:36 PM EST 05/05/2018 1:42 PM EST us Mary Jo SON LAB BLOOD ORDERABLES Final Result [address] [address] * TSH (05/05/2018 1:36 PM EST) TSH 1.14 0.27 - 4.20 uIU/mL [facility] Blood 05/05/2018 1:36 PM EST 05/05/2018 1:42 PM EST Mary Jo SON LAB BLOOD ORDERABLES Final Result Performing Organization Address [facility] Co de Phone Number [address] [address] * Immunoglobulin A (05/05/2018 1:36 PM EST) IgA 189 70 - 400 mg/dL [facility] Blood 05/05/2018 1:36 PM EST 05/05/2018 1:42 PM EST Mary Jo SON LAB BLOOD ORDERABLES Final Result Performing Organization Address [facility]/ZIP Co de Phone Number [address] [address] * Tissue transglutaminase IgA (05/05/2018 1:36 PM EST) TTG IGA ANTIBODY 3.9 <4.0 (Negative) U/mL [facility] DPT OF LAB MED AND PAT+ Blood 05/05/2018 1:36 PM EST 05/05/2018 1:41 PM EST Mary Jo SON LAB BLOOD ORDERABLES Final Result Performing Organization Address City/[facility]/ZIP Co de Phone Number [facility] DPT OF LAB MED AND PAT+ [address] [place] [address] documented in this encounter Visit Diagnoses Diagnosis Celiac disease- Primary documented in this encounter Additional Health Concerns Infection Onset Date Last Indicated Resolved Time CoV-Risk 03/04/2020 03/04/2020 03/18/2020 1:23 AM EDT documented as of this encounter Care Teams Business Development Relationship Specialty Start Date End Date Dana Cordero DO [address] [place] [address] PCP - General 05/22/17 12/31/21 Dana Cordero DO [address] [place] [address] PCP - General Internal Medicine 01/01/22 documented as of this encounter Additional Source Comments The information contained in this document represents components of the legal health record. It is not the complete legal health record.[facility]
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
--- OUTSIDE RECORDS SUMMARY | 2025-01-18 07:32 | XMS_ITS | Encounter Summary ---
Author Organization [facility] Address [address] [place] [address] Phone Care Team Providers Care Sas Developer Name Role Phone Dana Cordero DO Primary Care Provider [phone] Dana Cordero DO Primary Care Provider [phone] Encounter Details Date Type Department Care Team (Late st Contact Info) Description 12/08/2017 Ancillary Orders Virtual Department [address] [place] [address] Dana Cordero, [address] [place] [address] [email or web address] Breast screening Social History Tobacco Use Types Packs/Day Years [...] MAMMOGRAM SCREENING WITH TOMOSYNTHESIS WITH CAD (BILATERAL) (12/15/2018 7:38 AM EDT) Anatomical Region Laterality Modality Breast Left, Breast Right, Breast Bilateral Bila teral Mammography 12/15/2018 9:16 AM EDT Impressions 12/15/2018 9:18 AM EDT BILATERAL BREASTS: Negative, no evidence of malignancy. Normal interval follow- up is recommended in 12 months. Bi-RADS: BI-RADS CATEGORY: 1 - Negative. DENSITY: The breast tissue is heterogeneously dense, an appearance which lowers the sensitivity of mammography. POS - CDHMAM2 Narrative 12/15/2018 9:18 AM EDT STUDY: Bilateral screening mammography with tomosynthesis and CAD TECHNIQUE: Bilateral full-field digital screening mammography is obtained and read in conjunction with computer-aided detection. Tomosynthesis as well as 2-D C view imaging were obtained. COMPARISON: Comparison made to multiple prior, most recent December 08, 2017, and most remote October 05, 2012. BREAST COMPOSITION: The breasts are heterogeneously dense, which may obscure small masses. BILATERAL BREASTS: No significant masses, calcifications or other abnormalities are seen. Procedure Note Estrada Powers MD - 12/15/2018 STUDY: Bilateral screening mammography with tomosynthesis and CAD TECHNIQUE: Bilateral full-field digital screening mammography is obtainedand read in conjunction with computer-aided detection. Tomosynthesis aswell as 2-D C view imaging were obtained. COMPARISON: Comparison made to multiple prior, most recent December 08, 2017,and most remote October 05, 2012. BREAST COMPOSITION: The breasts are heterogeneously dense, which mayobscure small masses. BILATERAL BREASTS: No significant masses, calcifications or otherabnormalities are seen. IMPRESSION: BILATERAL BREASTS: Negative, no evidence of malignancy. Normal intervalfollow-up is recommended in 12 months. Bi-RADS: BI-RADS CATEGORY: 1 - Negative. DENSITY: The breast tissue is heterogeneously dense, an appearance whichlowers the sensitivity of mammography. POS - CDHMAM2 Dana Cordero DO IMG MG EXAMS Final Result documented in this encounter Visit Diagnoses Diagnosis Breast screening Breast screening, unspecified Breast screening Breast screening, unspecified documented in this encounter Additional Health Concerns Infection Onset Date Last Indicated Resolved Time CoV-Risk 03/04/2020 03/04/2020 03/18/2020 1:23 AM EDT documented as of this encounter Care Teams Sas Developer Relationship Specialty Start Date End Date Dana Cordero DO [address] [place] [address] PCP - General 05/22/17 12/31/21 Dana Cordero DO [address] [place] [address] PCP - General Internal Medicine 01/01/22 documented as of this encounter Additional Source Comments The information contained in this document represents components of the legal health record. It is not the complete legal health record.[facility]
--- OUTSIDE RECORDS SUMMARY | 2025-01-18 07:32 | XMS_ITS | Encounter Summary ---
Author Organization [facility] Address [address] [place] [phone] Phone Care Team Providers Care Track Service Person Name Role Phone Dana Cordero DO Primary Care Provider [phone] Dana Cordero DO Primary Care Provider [phone] Encounter Details Date Type Department Care Team (Late st Contact Info) Description 09/26/2017 Ancillary Orders Virtual Department [address] [place] [address] Dana Cordero, [address] [place] [address] [email or web address] Breast screening Social History Tobacco Use Types Packs/Day Years Used Date Smoking Tobacco: Never Assessed Comments Unknown Sex and Gender Information Value Date Recorded Sex Assigned at Female 11/26/2017 7:52 AM EDT Legal Sex Female 10:02 PM EDT Gender Identity Female 11/26/2017 7:52 AM EDT Sexual Orientation Not on file documented as of this encounter Plan of Treatment Not on file documented as of this encounter Results * BI MAMMOGRAM SCREENING WITH TOMOSYNTHESIS WITH CAD (BILATERAL) (12/08/2017 7:44 AM EDT) Anatomical Region Laterality Modality Breast Left, Breast Right, Breast Bilateral Bila teral Mammography 12/08/2017 9:42 AM EDT Impressions 12/08/2017 10:37 AM EDT No mammographic evidence of malignancy. Recommend routine annual surveillance. BI-RADS CATEGORY: 2 - Benign finding. DENSITY: The breast tissue is heterogeneously dense, an appearance which lowers the sensitivity of mammography. POS - CDHMAM2 Narrative 12/08/2017 10:37 AM EDT 67-year-old female with no current breast symptoms. Comparison made to previous on 11/26/2016 and as far back as 08/29/2011. Interpretation made in conjunction with computer-aided detection and tomosynthesis. The breasts are heterogeneously dense, which may obscure small masses. Stable bilateral calcifications and masses. There are no suspicious masses, areas of architectural distortion, or suspicious clusters of microcalcifications. Procedure Note Jocelyn Tomlin MD - 12/08/2017 67-year-old female with no current breast symptoms. Comparison made toprevious on 11/26/2016 and as far back as 08/29/2011. Interpretation madein conjunction with computer-aided detection and tomosynthesis. The breasts are heterogeneously dense, which may obscure small masses.Stable bilateral calcifications and masses. There are no suspicious masses, areas of architectural distortion, orsuspicious clusters of microcalcifications. IMPRESSION: No mammographic evidence of malignancy. Recommend routine annualsurveillance. BI-RADS CATEGORY: 2 - Benign finding. DENSITY: [...] documented as of this encounter Care Teams Track Service Person Relationship Specialty Start Date End Date Dana Cordero DO [address] [place] [address] PCP - General 05/22/17 12/31/21 Dana Cordero DO [address] [place] [address] PCP - General Internal Medicine 01/01/22 documented as of this encounter Additional Source Comments The information contained in this document represents components of the legal health record. It is not the complete legal health record.[facility]
--- OUTSIDE RECORDS SUMMARY | 2025-01-18 07:32 | XMS_ITS | Encounter Summary ---
Author Organization [facility] Address [address] [place] [address] Phone Care Team Providers Care Wax Pot Tender Name Role Phone Dana Cordero DO Primary Care Provider [phone] Dana Cordero DO Primary Care Provider [phone] Encounter Details Date Type Department Care Team (Late st Contact Info) Description 09/20/2020 Ancillary Orders Virtual Department [address] [place] [address] Dana Cordero, [address] [place] [address] [email or web address] Breast screening Social History Tobacco Use [...] MAMMOGRAM SCREENING WITH TOMOSYNTHESIS WITH CAD (BILATERAL) (12/28/2020 7:31 AM EDT) Anatomical Region Laterality Modality Breast Left, Breast Right, Breast Bilateral Bila teral Mammography 12/28/2020 9:17 AM EDT Impressions 12/28/2020 9:21 AM EDT BILATERAL BREASTS: Negative, no evidence of malignancy. Normal interval follow- up is recommended in 12 months. Bi-RADS: BI-RADS CATEGORY: 1 - Negative. DENSITY: There are scattered fibroglandular densities. Narrative 12/28/2020 9:21 AM EDT STUDY: Bilateral screening mammography with tomosynthesis and CAD TECHNIQUE: Bilateral full-field digital screening mammography is obtained and read in conjunction with computer-aided detection. Tomosynthesis as well as 2-D C view imaging were obtained. COMPARISON: Comparison made to multiple prior, most recent December 20, 2019, and most remote October 20, 2014. BREAST COMPOSITION: There are scattered areas of fibroglandular density BILATERAL BREASTS: No significant masses, suspicious calcifications or other abnormalities are seen. Procedure Note Estrada Powers MD - 12/28/2020 STUDY: Bilateral screening mammography with tomosynthesis and CAD TECHNIQUE: Bilateral full-field digital screening mammography is obtainedand read in conjunction with computer-aided detection. Tomosynthesis aswell as 2-D C view imaging were obtained. COMPARISON: Comparison made to multiple prior, most recent December, and most remote October 20, 2014. BREAST COMPOSITION: There are scattered areas of fibroglandulardensity BILATERAL BREASTS: No significant masses, suspicious calcifications orother abnormalities are seen. IMPRESSION: BILATERAL BREASTS: Negative, no evidence of malignancy. Normal intervalfollow-up is recommended in 12 months. Bi-RADS: BI-RADS CATEGORY: 1 - Negative. DENSITY: There are scattered fibroglandular densities. Dana Cordero DO IMG MG EXAMS Final Result documented in this encounter Visit Diagnoses Diagnosis Breast screening Breast screening, unspecified Breast screening Breast screening, unspecified documented in this encounter Care Teams Wax Pot Tender Relationship Specialty Start Date End Date Dana Cordero DO [address] [place] [id number] PCP - General 05/22/17 12/31/21 Dana Cordero DO [address] [place] [address] PCP - General Internal Medicine 01/01/22 documented as of this encounter Additional Source Comments The information contained in this document represents components of the legal health record. It is not the complete legal health record.[facility]
--- OUTSIDE RECORDS SUMMARY | 2025-01-18 07:32 | XMS_ITS | Encounter Summary ---
Author Organization [facility] Address [address] [place] [address] [place] [address] Phone Care Team Providers Care Cigarette Paper Tester Name Role Phone MarciaDana kim Jessica DOS SANTOS Primary Care Provider [phone] Encounter Details Date Type Department Care Team (Late st Contact Info) Description 01/10/2023 Procedure Pass [facility] Endoscopy Admitting Dept Virtual Department [address] [place] [address] Social History Tobacco Use Types Packs/Day Years [...] on filedocumented in this encounter Care Teams Cigarette Paper Tester Relationship Specialty Start Date End Date Dana Cordero DO [address] [place] [address] PCP - General Internal Medicine 01/01/22 documented as of this encounter Additional Source Comments The information contained in this document represents components of the legal health record. It is not the complete legal health record.[facility]
--- OUTSIDE RECORDS SUMMARY | 2025-01-18 07:32 | XMS_ITS | Encounter Summary ---
Author Organization [facility] Address [address] [place] [address] Phone Care Team Providers Care Carrot Tier Name Role Phone Dana Cordero DO Primary Care Provider [phone] Encounter Details Date Type Department Care Team (Late st Contact Info) Description 09/19/2022 Procedure Pass [facility] [employer], [address] [id number] Social History Tobacco Use Types Packs/Day Years [...] on filedocumented in this encounter Care Teams Carrot Tier Relationship Specialty Start Date End Date Dana Cordero DO [address] [place] [id number] PCP - General Internal Medicine 01/01/22 documented as of this encounter Additional Source Comments The information contained in this document represents components of the legal health record. It is not the complete legal health record.[facility]
--- OUTSIDE RECORDS SUMMARY | 2025-01-18 07:32 | XMS_ITS | Patient Health Record ---
Author Organization [facility] Address [address] [place] [address] Care Team Providers Care Glazing Machine Operator Name Role Phone Harini Lam MD Primary Care Provider UnavailVu Johnson Unavailable [phone] Allergies Allergen (clinical drug ingredient) Drug/Non Drug Allergy documented on EMR Reaction Allergy Type Onset Date Status Mold Unknown Allergy Active prednisone Prednisone chest Pain Drug Allergy Acti ve Reason For Referral No Information Medications Medication SIG (Take, Route, Frequency, Duration) Notes Start Date End Date Status Montelukast Sodium 10 MG Orally Once a day Active Multivitamin Active Timolol Hemihydrate Active Estradiol 0.025 MG/24HR as directed Orally Active Probiotic Active oxyBUTYnin 10mg Acti ve PreserVision AREDS A ctive Dorzolamide HCl 2 % 1 drop into affected eye Ophthalmic Three times a day Active Custom Orthotics as directed B/L pes planus, metatarsalgia 09/08/2018 Active Latanoprost Active tylenol 1000mg TID Activ e valACYclovir HCl 500 MG Orally Active Immunizations Vaccine Route Administration Date Status [...] Problem Status W/U Status Risk Notes Problem Bilateral atherosclerosis of arteries of lower limbs (disorder) ([id number] ) Atherosclerosis of twenty-nine palms artery of both lower extremities, with unspecified presence of clinical manifestation (I70.203) Active confirmed Q7(A), Q8(2B), Q9(1B,2 C) Vital Signs Blood pressure diastolic 80 mm Hg 12/17/2024 Height 5ft 6in in 12/17/2024 Blood pressure systolic 126 mm Hg 12/17/2024 Weight 123 lbs 12/17/2024 BMI 19.85 kg/m2 12/17/2024 Procedures Procedure Date Ordered Date Performed Result Body Sit e 75775-TWGZDFY NAIL, 6 OR MORE 03/02/2024 N/A 78779-Ocxs Destruction, 1-14 03/02/2024 N/A 54103-Uzczmuyo Plate 03/02/2024 N/A 68965-PSIMIVB NAIL, 6 OR MORE 06/11/2024 N/A 48515-TIYS SKIN LESIONS, OVER 4 06/11/2024 N/A 80285-TNBLEKQ NAIL, 6 OR MORE 09/17/2024 N/A 77389-CLVN SKIN LESIONS, OVER 4 09/17/2024 N/A 66468-BLPMUPS NAIL, 6 OR MORE 12/17/2024 N/A 86151-GCHB SKIN LESIONS, OVER 4 12/17/2024 N/A Encounters Encounter Location Date Provider Diagnosis [facility] [address] [address] 03/02/2024 Vu Wang Tinea unguium B35.1 ; Pain in right toe(s) M79.674 ; Pain in left toe(s) M79.675 ; Plantar wart B07.0 ; Pain in left foot M79.672 and [facility] L60.[facility] [address] 06/11/2024 Vu Wang Atherosclerosis of twenty-nine palms artery of both lower extremities, with unspecified presence of clinical manifestation I70.203 ; Tinea unguium B35.1 ; Pain in right toe(s) M79.674 and Pain in left toe(s) M79.[address] [address] 09/17/2024 Vunatasha MarcKathleen Atherosclerosis of twenty-nine palms artery of both lower extremities, with unspecified presence of clinical manifestation I70.203 ; Tinea unguium B35.1 ; Pain in right toe(s) M79.674 and Pain in left toe(s) M79.[address] [address] 12/17/2024 Vunatasha MarcKathleen Atherosclerosis of twenty-nine palms artery of both lower extremities, with unspecified presence of clinical manifestation I70.203 ; Tinea unguium B35.1 ; Pain in right toe(s) M79.674 and Pain in left toe(s) M79.[address] [address] 06/08/2024 Vu Kathleen Assessments Encounter Date Diagnosis (ICD Code) Assessment Notes Treatment Notes Treatment Clinical Notes Section Notes 03/02/2024 Tinea unguium (ICD-10 - B35.1) 06/11/2024 Atherosclerosis of twenty-nine palms artery of both lower extremities, with unspecified presence of clinical manifestation (ICD-10 - I70.203) Q7(A), Q8(2B), Q9(1B,2C) 09/17/2024 Tinea unguium (ICD-10 - B35.1) 09/17/2024 Atherosclerosis of twenty-nine palms artery of both lower extremities, with unspecified presence of clinical manifestation (ICD-10 - I70.203) Q7(A), Q8(2B), Q9(1B,2C) 12/17/2024 Tinea unguium (ICD-10 - B35.1) 12/17/2024 Atherosclerosis of twenty-nine palms artery of both lower extremities, with unspecified presence of clinical manifestation (ICD-10 - I70.203) Q7(A), Q8(2B), Q9(1B,2C) 12/17/2024 Pain in right toe(s) (ICD-10 - M79.674) 09/17/2024 Pain in right toe(s) (ICD-10 - M79.674) 03/02/2024 Pain in right toe(s) (ICD-10 - M79.674) 06/11/2024 Tinea unguium (ICD-10 - B35.1) 03/02/2024 Pain in left toe(s) (ICD-10 - M79.675) 06/11/2024 Pain in right toe(s) (ICD-10 - M79.674) 09/17/2024 Pain in left toe(s) (ICD-10 - M79.675) 12/17/2024 Pain in left toe(s) (ICD-10 - M79.675) 06/11/2024 Pain in left toe(s) (ICD-10 - M79.675) 03/02/2024 Plantar wart (ICD-10 - B07.0) 03/02/2024 Pain in left foot (ICD-10 - M79.672) 03/02/2024 Ingrown nail (ICD-10 - L60.0) Plan Of Treatment Pending Test Test Name Order Date X ray : Foot, left 3V 09/08/2018 X ray : Foot, right 3V 09/08/2018 78108-XDXCQKJ NAIL, 6 OR MORE 06/25/2022 53687-DLTNKVP NAIL, 6 OR MORE 09/03/2022 02434-DBNPWJM NAIL, 6 OR MORE 11/15/2022 66676-WRBMDCB NAIL, 6 OR MORE 02/18/2023 89102-YZJUNNY NAIL, 6 OR MORE 05/27/2023 56983-OIYRWKU NAIL, 6 OR MORE 09/02/2023 96466-DLWEKHF NAIL, 6 OR MORE 12/09/2023 18668-QVEHDSW NAIL, 6 OR MORE 03/02/2024 52200-CSNKZNB NAIL, 6 OR MORE 06/11/2024 14146-ALMMQJB NAIL, 6 OR MORE 09/17/2024 45931-XJYDSUC NAIL, 6 OR MORE 12/17/2024 44014-Zgph Destruction, 1-14 03/02/2024 55077-Xgky Destruction, 1-14 12/09/2023 27310-Qbol Destruction, 1-14 09/02/2023 24063-Vmsc Destruction, 1-14 05/27/2023 67901-Opxb Destruction, -02/18/2023 10489-Kehp Destruction, 06-0111/15/2022 61713-Loaa Destruction, 06-0109/03/2022 11531-Wjpe Destruction, 06-0103/29/2022 96576-Uufd Destruction, 06-0106/25/2022 76431-Ixax Destruction, 06-0108/21/2021 78482-Mzsn Destruction, 06-0111/27/2021 49593-Lrviuhec Plate 11/27/2021 75390-Bdwciptd Plate 06/25/2022 14864-Myxwtffy Plate 09/03/2022 24113-Ptodtnnw Plate 02/18/2023 29570-Umodltjt Plate 05/27/2023 96925-Tcwipntb Plate 09/02/2023 85394-Xvvmqdgk Plate 12/09/2023 80893-Imwxirrf Plate 03/02/2024 89889-IFXF SKIN LESIONS, OVER 4 06/11/19 38553-ORIN SKIN LESIONS, OVER 4 12/18/19 26608-HOBU SKIN LESIONS, OVER 09/18/19 Next Appt Details Provider Name:Vu Wang , 04/05/2025 09:15:00 AM, [address] [facility], [place], [address], Insurance Providers Payer Name Payer Address Payer Phone Subscriber Number Group Number Insured Name Patient Relationship to Insured Coverage Start Date Coverage End Date Medicare National [employer] [address] [facility] [address] [id number] Kendra Santiago Self - patient is the insured [address] [facility] [address] [place] [address] [id number] Kendra Santiago Self - patient is the insured Medical (General) History Medical History History ICD Code osteoarthritis asthma Back,Hip,and Knee pain Macular degeneration Measles Mumps Chicken pox Celiac disease Inflammatory bowel disease Overactive bladder (OAB) Glaucoma Surgical History Surgery Date(Month/Year) hip replacement 09/06/2020 Cataract and Glaucoma surgery in both es 2024 Hospitalization History Reason Date(Month/Year)
--- OUTSIDE RECORDS SUMMARY | 2025-01-18 07:32 | XMS_ITS | Encounter Summary ---
Author Organization [facility] Address [address] [place] [address] Phone Care Team Providers Care Supervisor Refractory Products Name Role Phone Dana Cordero DO Primary Care Provider [phone] Dana Cordero DO Primary Care Provider [phone] Encounter Details Date Type Department Care Team (Late st Contact Info) Description 09/20/2020 Procedure Pass [address] [address] Social History Tobacco Use Types Packs/Day Years [...] on filedocumented in this encounter Care Teams Supervisor Refractory Products Relationship Specialty Start Date End Date Dana Cordero DO [address] [place] [address] PCP - General 05/22/17 12/31/21 Dana Cordero DO [address] [place] [address] PCP - General Internal Medicine 01/01/22 documented as of this encounter Additional Source Comments The information contained in this document represents components of the legal health record. It is not the complete legal health record.[facility]
--- OUTSIDE RECORDS SUMMARY | 2025-01-18 07:32 | XMS_ITS | Encounter Summary ---
Author Organization [facility] Address [address] [facility] [address] [place] [address] Phone Care Team Providers Care Tube Pusher Name Role Phone Dana Cordero DO Primary Care Provider [phone] Dana Cordero DO Primary Care Provider [phone] Encounter Details Date Type Department Care Team (Late st Contact Info) Description 09/24/2019 Ancillary Orders [address], [place] [address] Dana Cordero DO [address] [place] [address] [place] [address] Social History Tobacco Use Types Packs/Day Years [...] Diagnoses Not on filedocumented in this encounter Additional Health Concerns Infection Onset Date Last Indicated Resolved Time CoV-Risk 03/04/2020 03/04/2020 03/18/2020 1:23 AM EDT documented as of this encounter Care Teams Tube Pusher Relationship Specialty Start Date End Date Dana Cordero DO [address] [place] [address] PCP - General 05/22/17 12/31/21 Dana Cordero DO [address] [place] [address] PCP - General Internal Medicine 01/01/22 documented as of this encounter Additional Source Comments The information contained in this document represents components of the legal health record. It is not the complete legal health record.[facility]
--- OUTSIDE RECORDS SUMMARY | 2025-01-18 07:32 | XMS_ITS | Encounter Summary ---
Author Organization [facility] Address [address] [place] [address] Phone Care Team Providers Care Configuration Release Manager Name Role Phone Dana Cordero DO Primary Care Provider [phone] Dana Cordero DO Primary Care Provider [phone] Encounter Details Date Type Department Care Team (Late st Contact Info) Description 09/24/2019 Ancillary Orders Virtual Department [address] [place] [address] Dana Cordero, DO [address] [address] [email or web address] Breast cancer screening by mammogram Social History Tobacco Use Types Packs/Day Years [...] MAMMOGRAM SCREENING WITH TOMOSYNTHESIS WITH CAD (BILATERAL) (12/20/2019 7:44 AM EDT) Anatomical Region Laterality Modality Breast Left, Breast Right, Breast Bilateral Bila teral Mammography 12/20/2019 8:17 AM EDT Impressions 12/20/2019 8:21 AM EDT No mammographic change indicative of malignancy. Annual screening is recommended. BI-RADS CATEGORY 2 - BENIGN DENSITY: There are scattered fibroglandular densities. Narrative 12/20/2019 8:21 AM EDT Bilateral full-field digital screening mammography is obtained and read in conjunction with computer-aided detection. Tomosynthesis as well as 2-D C view imaging of both breasts in two planes also obtained. Comparison made to multiple prior, most recent December 15, 2018, and most remote October 08, 2013. No dominant mass, architectural distortion, worrisome asymmetry, or suspicious calcification is identified. No skin or nipple finding of concern is appreciated. There are multiple nodules again noted without clear change, including subareolar left breast and posterior upper inner right breast. Largely punctate calcifications bilaterally, asymmetrically more prominent on the left, also stable. us Dana Cordero DO IMG MG EXAMS Final Result documented in this encounter Visit Diagnoses Diagnosis Breast cancer screening by mammogram Breast cancer screening by mammogram documented in this encounter Additional Health Concerns Infection Onset Date Last Indicated Resolved Time CoV-Risk 03/04/2020 03/04/2020 03/18/2020 1:23 AM EDT documented as of this encounter Care Teams Configuration Release Manager Relationship Specialty Start Date End Date Dana Cordero DO [address] [place] [address] PCP - General 05/22/17 12/31/21 Dana Cordero DO [address] [place] [address] PCP - General Internal Medicine 01/01/22 documented as of this encounter Additional Source Comments The information contained in this document represents components of the legal health record. It is not the complete legal health record.[facility]
== END 2025-01-18 07:29 | disposition home or self-care (01) ==
LOC: HO.MAMMO 07:28
PROVIDERS: PCP Internal Medicine; Visit Provider Internal Medicine
DX: Z12.31 Encounter for screening mammogram for malignant neoplasm of breast (principal)
CPT/HCPCS: 77063; 77067

== ENCOUNTER → 2025-01-18 07:30 | Outpatient (BNV) | payer MEDICARE, SELFPAY | PROVIDERS: PCP Internal Medicine; Visit Provider Internal Medicine | DX: Z12.31 Encounter for screening mammogram for malignant neoplasm of breast (principal) | CPT/HCPCS: 77063; 77067 ==